=== PATIENT | female | born 1990 | race Caucasian/White ===

== ENCOUNTER 2016-10-26 10:55 | Emergency (ER) | payer OTHER ==
[2016-10-26 11:03] VITALS: TEMP 99.9; BMI 27.4
--- NOTE | 2016-10-26 11:28 | PDOC ---
History of Present Illness - General Chief Complaint: Pain, Acute Stated Complaint: LT SIDE PAIN Time Seen by Provider: 10/26/16 11:28 History Source: Patient Exam Limitations: No Limitations - History of Present Illness Initial Comments: 10/26/16 11:51 Chief complaint: Left flank pain radiates to mid lateral abdomen with nausea vomiting and fever History of present illness: Patient is a 25-year-old female with a history of kidney stones here today complaining of worsening left flank pain that radiates to left left mid lateral abdomen with nausea, vomiting, and fever and chills since 10/23/2016. Patient reports that pain is currently the left lateral mid abdominal area and is sharp and is currently a 10 out of 10 on relieved by taking. Patient is any dysuria, hematuria urgency or frequency. Patient reports last having kidney stones June 2016. Patient last year was admitted for pyelonephritis and kidney stones. 10/26/16 11:54 Timing/Duration: getting worse Severity: severe (left flank to left mid lateral abdominal pain ) Associated Symptoms: reports: fever/chills, nausea/vomiting, other (left flank pain radiates to left mid lateral abdomen) Past History - Past Medical History Allergies/Adverse Reactions: Allergies Allergy/AdvReac Type Severity Reaction Status Date / Time No Known Allergies Allergy Verified 10/26/16 11:03 Home Medications: Ambulatory Orders Ciprofloxacin [Cipro -] 500 mg PO Q12H #28 tablet 10/26/16 Ibuprofen 800 mg PO TID #15 tablet 10/26/16 Ondansetron [Zofran Odt -] 4 mg SL TID #8 od.tablet 10/26/16 Asthma: No Cancer: No Cardiac Disorders: No Diabetes: No HTN: No Kidney Stones: Yes Seizures: No Thyroid Disease: No - Immunization History Immunization Up to Date: Yes - Psycho/Social/Smoking Cessation Hx Anxiety: No Suicidal Ideation: No Smoking History: Never smoked Have you smoked in the past 12 months: No Hx Alcohol Use: No Drug/Substance Use Hx: No Substance Use Type: None Hx Substance Use Treatment: No Review of Systems - Review of Systems Able to Perform ROS?: Yes Constitutional: Yes: Fever, Loss of Appetite HEENTM: No: Symptoms Reported Respiratory: No: Symptoms reported Cardiac (ROS): No: Symptoms Reported ABD/GI: Yes: Nausea, Poor Appetite, Vomiting (intermittent since ), Other (left mid lateral abdominal ) : Yes: Flank Pain (left flank pain ). No: Burning, Dysuria, Discharge, Frequency, Hematuria, Incontinence, Urgency *Physical Exam - Vital Signs Last Vital Signs Temp Pulse Resp BP Pulse Ox 99.9 F H 120 H 24 138/95 98 10/26/16 11:01 10/26/16 11:01 10/26/16 11:01 10/26/16 11:01 10/26/16 11:01 - Physical Exam General Appearance: Yes: Appropriately Dressed Respiratory/Chest: positive: Lungs Clear, Normal Breath Sounds. negative: Chest Tender, Respiratory Distress Cardiovascular: positive: Regular Rhythm, Regular Rate, S1, S2 Gastrointestinal/Abdominal: positive: Normal Bowel Sounds, Tender (LEFT MID LATERAL ABDOMEN ), Soft. negative: Organomegaly, Distended, Guarding, Rebound, Tenderness, Hepatomegaly, Spleenomegaly Musculoskeletal: positive: Normal Inspection, CVA Tenderness (LEFT ), CVA Tenderness (L). negative: CVA Tenderness (R), Vertebral Tenderness Integumentary: positive: Normal Color Neurologic: positive: Alert, Responsive ED Treatment Course - LABORATORY CBC & Chemistry Diagram: 10/26/16 11:33 10/26/16 11:33 Medical Decision Making - Medical Decision Making Patient is a 25-year-old female with a history of kidney stones here today complaining of worsening left flank pain that radiates to left left mid lateral abdomen with nausea, vomiting, and fever and chills since 10/23/2016. Patient reports that pain is currently the left lateral mid abdominal area and is sharp and is currently a 10 out of 10 on relieved by taking. Patient is any dysuria, hematuria urgency or frequency. Patient reports last having kidney stones June 2016. Patient last year was admitted for pyelonephritis and kidney stones. R/O RECURRENT RENAL CALCULI R/O UTI R/O PYELONEPHRITIS PLAN: U/A URINE HCG NEGATIVE CMP CBC WITH DIFF RENAL US evidence of right renal hydronephrosis, mild left renal hydronephrosis minimally worse since last exam 05/07/2016 no gross renal calculi noted TORADOL 30 MG IV PUSH NOW REGLAN 10 MG IVPB NOW lactic acid BLOOD CULTURES 10/26/16 11:50 Laboratory Tests 10/26/16 11:20 Urine Color Yellow Urine Appearance Turbid Urine pH 5.0 Ur Specific [place] 1.023 Urine Protein 3+ H D Urine Glucose (UA) Negative Urine Ketones Negative Urine Blood 1+ H Urine Nitrite Positive Urine Bilirubin Negative Urine Urobilinogen Negative Ur Leukocyte Esterase 3+ H D Urine HCG, Qual Negative 10/26/16 11:54 10/26/16 11:54 10/26/16 11:57 Laboratory Tests 10/26/16 11:33 WBC 14.9 H RBC 4.18 D Hgb 12.1 D Hct 37.2 D MCV 88.9 MCHC 32.5 RDW 14.1 Plt Count 405 MPV 9.4 Neutrophils % 70.2 Lymphocytes % 19.5 D Monocytes % 9.6 Eosinophils % 0.3 Basophils % 0.4 10/26/16 12:28 10/26/16 12:29 Laboratory Tests 10/26/16 11:20 Urine RBC 61 Urine WBC 2581 Ur Epithelial Cells Moderate Urine Bacteria Hyaline Casts 17 Urine Mucus Many Urine HCG, Qual Negative 10/26/16 12:30 10/26/16 14:04 10/26/16 14:04 Laboratory Tests 10/26/16 11:33 Sodium 139 Potassium 4.1 Chloride 100 Carbon Dioxide 25 D Anion Gap 14 BUN 10 D Creatinine 0.7 D Creat Clearance w eGFR > 60 Random Glucose 92 D Calcium 9.3 Total Bilirubin 0.5 D AST 14 L ALT 30 D Alkaline Phosphatase 75 Total Protein 8.8 H D Albumin 3.6 D 10/26/16 14:25 10/26/16 14:26 Pt. signed out to Katie Arshad RN aware of need to transfer to main ED for further evalu *DC/Admit/Observation/Transfer Diagnosis at time of Disposition: UTI (urinary tract infection) Qualifiers: Urinary tract infection type: acute pyelonephritis Qualified Code(s): N10 - Acute pyelonephritis - Discharge Dispostion Disposition: HOME Condition at time of disposition: Improved - Prescriptions Prescriptions: Ciprofloxacin [Cipro -] 500 mg PO Q12H #28 tablet Ibuprofen 800 mg PO TID #15 tablet Ondansetron [Zofran Odt -] 4 mg SL TID #8 od.tablet - Referrals Referrals: Emma Berger MD [Primary Care Provider] - - Patient Instructions Printed Discharge Instructions: DI for Kidney Infection Additional Instructions: Discharge Instructions: -Take medications as prescribed -Drink at least 64oz of water daily -Follow up with your doctor within 1 week -REturn to the ER immediately with any worsening or concerning symptoms
[2016-10-26] MEDS ORDERED: SODIUM CHLORIDE 1,000 ML IV STA (11:32)
[2016-10-26] MEDS ORDERED: METOCLOPRAMIDE HCL INJECTION 10 MG/2 ML VIAL IVPB ONE (11:33)
[2016-10-26] MEDS ORDERED: KETOROLAC TROMETHAMINE 60 MG/2 ML VIAL IVPUSH ONE (11:34)
[2016-10-26 11:43] LABS: URINE APPEARANCE TURBID; URINE BILIRUBIN NEGATIVE (NEGATIVE); URINE COLOR YELLOW; URINE GLUCOSE (UA) NEGATIVE (NEGATIVE); URINE KETONE NEGATIVE (NEGATIVE); URINE NITRITE POSITIVE (NEGATIVE); URINE UROBILINOGEN NEGATIVE E.U./dl (0.2-1.0)
[2016-10-26 11:44] LABS: URINE BLOOD 1+ (NEGATIVE); URINE LEUK ESTERASE 3+ (NEGATIVE); URINE PROTEIN 3+ (NEGATIVE)
[2016-10-26 11:47] LABS: URINE MUCUS MANY; URINE RBC 61 /hpf (0-3); URINE WBC 2581 /hpf (3-5)
[2016-10-26 12:04] LABS: BASOPHIL 0.4 % (0-2.0); EOSINOPHIL 0.3 % (0-4.5); MCH 28.9 pg (25.7-33.7); MCHC 32.5 g/dl (32.0-36.0); MEAN CELL VOLUME 88.9 fl (80-96); MEAN PLT VOLUME 9.4 fl (7.5-11.1); NEUTROPHILS 70.2 % (42.8-82.8); PLATELET COUNT 405 K/MM3 (134-434); RDW 14.1 % (11.6-15.6); WHITE BLOOD COUNT 14.9 K/mm3 (4.0-10.0)
[2016-10-26 12:19] LABS: URINE HYALINE CAST 17 /lpf
[2016-10-26 12:28] LABS: ALBUMIN 3.6 g/dl (3.4-5.0); ANION GAP 14 (8-16); CALCIUM 9.3 mg/dL (8.5-10.1); CO2 25 mmol/L (21-32); CREATININE 0.7 mg/dL (0.55-1.02); GLUCOSE,RANDOM 92 mg/dL (74-106); SGOT/AST 14 U/L (15-37); SGPT/ALT 30 U/L (12-78)
[2016-10-26 12:30] LABS: ALK PHOS 75 U/L (45-117); BILIRUBIN,TOTAL 0.5 mg/dL (0.2-1.0); TOT PROT 8.8 g/dl (6.4-8.2)
[2016-10-26] MEDS ORDERED: CIPROFLOXACIN 250 MG TABLET (RESTRICTED TO ID) PO ONE (15:41)
--- NOTE | 2016-10-26 15:46 | PDOC ---
[id number]- Last Filed: 10/29/16 13:12> ED Treatment Course - LABORATORY CBC & Chemistry Diagram: 10/26/16 11:33 10/26/16 11:33 - ADDITIONAL ORDERS Additional order review: Laboratory Results 10/26/16 10/26/16 11:33 11:20 Sodium 139 Potassium 4.1 Chloride 100 Carbon Dioxide 25 D Anion Gap 14 BUN 10 D Creatinine 0.7 D Creat Clearance w eGFR > 60 Random Glucose 92 D Calcium 9.3 Total Bilirubin 0.5 D AST 14 L ALT 30 D Alkaline Phosphatase 75 Total Protein 8.8 H D Albumin 3.6 D Urine Color Yellow Urine Appearance Turbid Urine pH 5.0 Ur Specific [place] 1.023 Urine Protein 3+ H D Urine Glucose (UA) Negative Urine Ketones Negative Urine Blood 1+ H Urine Nitrite Positive Urine Bilirubin Negative Urine Urobilinogen Negative Ur Leukocyte Esterase 3+ H D Urine RBC 61 Urine WBC 2581 Ur Epithelial Cells Moderate Urine Bacteria Hyaline Casts 17 Urine Mucus Many Urine HCG, Qual Negative 10/26/16 11:33 RBC 4.18 D MCV 88.9 MCHC 32.5 RDW 14.1 MPV 9.4 Neutrophils % 70.2 Lymphocytes % 19.5 D Monocytes % 9.6 Eosinophils % 0.3 Basophils % 0.4 - Medications Given in the ED: ED Medications Discontinued Medications Generic Name Dose Route Start Last Admin Trade Name Jeanie PRN Reason Stop Dose Admin Sodium Chloride 1,000 mls @ 1,000 mls/hr 10/26/16 11:32 10/26/16 11:46 Normal Saline - IV 10/26/16 12:31 1,000 mls/hr ASDIR STA Administration Ketorolac Tromethamine 30 mg 10/26/16 11:34 10/26/16 11:46 Toradol Injection - IVPUSH 10/26/16 11:35 30 mg NOW ONE Administration Metoclopramide HCl 10 mg 10/26/16 11:33 10/26/16 11:46 Reglan Injection - IVPB 10/26/16 11:34 10 mg ONCE ONE Administration <Katie Wilkinson - Last Filed: 10/26/16 16:29> - LABORATORY CBC & Chemistry Diagram: 10/26/16 11:33 10/26/16 11:33 - ADDITIONAL ORDERS Additional order review: 10/26/16 14:30 Blood Culture - Preliminary Blood - Peripheral Venous NO GROWTH OBTAINED AFTER 48 HOURS, INCUBATION TO CONTINUE FOR 3 DAYS. 10/26/16 14:30 Blood Culture - Preliminary Blood - Peripheral Venous NO GROWTH OBTAINED AFTER 48 HOURS, INCUBATION TO CONTINUE FOR 3 DAYS. 10/26/16 11:20 Urine Culture - Final Urine - Urine Clean Catch Escherichia Coli 10/26/16 11:33 RBC 4.18 D MCV 88.9 MCHC 32.5 RDW 14.1 MPV 9.4 Neutrophils % 70.2 Lymphocytes % 19.5 D Monocytes % 9.6 Eosinophils % 0.3 Basophils % 0.4 - RADIOLOGY Radiology Studies Ordered: Category Date Time Status KIDNEY / RENAL US [US] Stat Ultrasound 10/26/16 11:53 Completed - Medications Given in the ED: ED Medications Discontinued Medications Generic Name Dose Route Start Last Admin Trade Name Freq PRN Reason Stop Dose Admin Ciprofloxacin 500 mg 10/26/16 15:41 10/26/16 16:40 Cipro (Restricted To Id) PO 10/26/16 15:42 500 mg ONCE ONE Administration Sodium Chloride 1,000 mls @ 1,000 mls/hr 10/26/16 11:32 10/26/16 11:46 Normal Saline - IV 10/26/16 12:31 1,000 mls/hr ASDIR STA Administration Ketorolac Tromethamine 30 mg 10/26/16 11:34 10/26/16 11:46 Toradol Injection - IVPUSH 10/26/16 11:35 30 mg NOW ONE Administration Metoclopramide HCl 10 mg 10/26/16 11:33 10/26/16 11:46 Reglan Injection - IVPB 10/26/16 11:34 10 mg ONCE ONE Administration <Arin Goddard - Last Filed: 10/29/16 13:12> Progress Note - Progress Note Progress Note: I have received report from TAYE Goddard regarding this patient. Pt's initial chief complaint: left flank pain Pt's work up completed prior to sign out: labs, UA, CT scan Pt treatment given from prior staff: IV fluids, IV toradol, IV reglan Pt plan to be completed: Will reassess, give PO abx Dispo: Most likely discharge. <Katie Wilkinson - Last Filed: 10/26/16 16:29> Medical Decision Making - Medical Decision Making A/P: 25 y/o female seen and worked up in [facility] for left flank pain with nausea, vomiting and subjective f/c sent over for further care. The CT scan shows mild hydronephrosis of left kidney without evidence of a stone. She has a positive UTI and clinical pyelonephritis. Plan is as follows: 1. PO Cipro 2. Repeat vital signs Patient's vital signs have improved - she is no longer febrile or tachycardic. She is able to tolerate PO medications and had first dose of Cipro in the ER. Will discharge to home with rx for zofran, ibuprofen and 2 week course of cipro. Pt instructed to take entire 2 weeks of Cipro, follow up with her doctor within 1 week, drink at least 64oz of water daily and return to the ER immediately with any worsening or concerning symptoms. The patient verbalizes understanding of all instructions, has no further questions and is awaiting discharge. <Katie Wilkinson - Last Filed: 10/26/16 16:29> *DC/Admit/Observation/Transfer <Katie Wilkinson - Last Filed: 10/26/16 16:29> <Arin Goddard - Last Filed: 10/29/16 13:12> Diagnosis at time of Disposition: UTI (urinary tract infection) Qualifiers: Urinary tract infection type: acute pyelonephritis Qualified Code(s): N10 - Acute pyelonephritis - Discharge Dispostion Disposition: HOME Condition at time of disposition: Improved - Prescriptions Prescriptions: Ciprofloxacin [Cipro -] 500 mg PO Q12H #28 tablet Ibuprofen 800 mg PO TID #15 tablet Ondansetron [Zofran Odt -] 4 mg SL TID #8 od.tablet - Referrals Referrals: Emma Berger MD [Primary Care Provider] - - Patient Instructions Printed Discharge Instructions: DI for Kidney Infection Additional Instructions: Discharge Instructions: -Take medications as prescribed -Drink at least 64oz of water daily -Follow up with your doctor within 1 week -REturn to the ER immediately with any worsening or concerning symptoms - Post Discharge Activity
[2016-10-26 16:12] VITALS: BP 117/70; PULSE 89
== END 2016-10-26 16:54 | disposition home or self-care (01) ==
LOC: JERFT 10:55 → JER 10:55
PROC: 3E0333Z Introduction of Anti-inflammatory into Peripheral Vein, Percutaneous Approach (ICD-10-PCS; principal; 2016-10-26)
PROC: 3E033GC Introduction of Other Therapeutic Substance into Peripheral Vein, Percutaneous Approach (ICD-10-PCS; 2016-10-26)
DX: N10 Acute pyelonephritis (principal); Z87.442 Personal history of urinary calculi
CPT/HCPCS: 36415; 76775-TC; 80053; 81003; 81015; 84703; 85025; 87040; 87086; 87186; 96374; 96375; 99284-25

== ENCOUNTER 2016-12-30 21:22 | Emergency (ER) | payer OTHER ==
[2016-12-30 21:28] VITALS: BP 115/68; PULSE 87; TEMP 99; BMI 26.6
--- NOTE | 2016-12-30 21:46 | PDOC ---
History of Present Illness - General History Source: Patient Exam Limitations: No Limitations <Roscoe Quintero - Last Filed: 12/31/16 00:15> - General History Source: Patient Exam Limitations: No Limitations - History of Present Illness Initial Comments: 12/30/16 22:05 The patient is a 26 year old female, with a significant past medical history of kidney stones, who presents to the emergency department s/p mechanical fall approximately 2 days ago. The patient reports she slipped and fell while walking to the bathroom 2 days ago. At the time of the fall she reports twisting her right ankle. Today, the patient reports increased pain and swelling at the right ankle. She reports she is able to ambulate, but with pain. She denies any calf tenderness, hip pain, or knee pain. She denies any recent travel. Allergies: NKDA Past Surgical History: None reported Social History: Non smoker. No ETOH or drug use. <Shalonda Thompson - Last Filed: 12/31/16 02:20> - General Chief Complaint: Injury Stated Complaint: INJURY Time Seen by Provider: 12/30/16 21:39 Past History - Past Medical History Asthma: No Cancer: No Cardiac Disorders: No Diabetes: No HTN: No Kidney Stones: Yes Seizures: No Thyroid Disease: No - Immunization History Immunization Up to Date: Yes - Psycho/Social/Smoking Cessation Hx Anxiety: No Suicidal Ideation: No Smoking History: Never smoked Have you smoked in the past 12 months: No Hx Alcohol Use: No Drug/Substance Use Hx: No Substance Use Type: None Hx Substance Use Treatment: No <Roscoe Quintero - Last Filed: 12/31/16 00:15> <Shalonda Thompson - Last Filed: 12/31/16 02:20> - Past Medical History Allergies/Adverse Reactions: Allergies Allergy/AdvReac Type Severity Reaction Status Date / Time No Known Allergies Allergy Verified 10/26/16 11:03 Home Medications: Ambulatory Orders Ibuprofen [Motrin -] 600 mg PO TID #30 tablet 12/30/16 Oxycodone HCl/Acetaminophen [Percocet 5-325 mg Tablet] 1 - 2 tab PO Q6H #20 tablet MDD 4 12/30/16 Review of Systems - Review of Systems Able to Perform ROS?: Yes Comments:: 12/30/16 22:06 CONSTITUTIONAL: Absent: fever, no chills, no fatigue EYES: Absent: visual changes ENT: Absent: ear pain, no sore throat CARDIOVASCULAR: Absent: chest pain, no palpitations RESPIRATORY: Absent: cough, no SOB GI: Absent: abdominal pain, no nausea, no vomiting, no constipation, no diarrhea GENITOURINARY: Absent: dysuria, no frequency, no hematuria MUSCULOSKELETAL: Present: +right ankle swelling s/p slip and fall Absent: back pain, no arthralgia, no myalgia SKIN: Absent: rash NEURO: Absent: headache <Shalonda Thompson - Last Filed: 12/31/16 02:20> *Physical Exam - Vital Signs Last Vital Signs Temp Pulse Resp BP Pulse Ox 99 F 87 18 115/68 99 12/30/16 21:26 12/30/16 21:26 12/30/16 21:26 12/30/16 21:26 12/30/16 21:26 <Roscoe Quintero - Last Filed: 12/31/16 00:15> - Vital Signs Last Vital Signs Temp Pulse Resp BP Pulse Ox 99 F 87 18 115/68 99 12/30/16 21:26 12/30/16 21:26 12/30/16 21:26 12/30/16 21:26 12/30/16 21:26 - Physical Exam Comments: 12/30/16 22:06 GENERAL: Well-appearing, well-nourished. No apparent distress. HEENT: Normocephalic, atraumatic. PERRL, EOM intact. CARDIOVASCULAR: Normal S1, S2. Regular rate and rhythm. PULMONARY: Clear to auscultation bilaterally. ABDOMEN: Soft, non-distended, non-tender. EXTREMITIES: Mild edema surrounding the right ankle and top of the right foot, with associated ecchymosis predominantly at the medial malleolus and dorsum of the foot. No gross deformities. SKIN: Warm, dry. No rash NEUROLOGICAL: No focal neurological deficits. <Shalonda Thompson - Last Filed: 12/31/16 02:20> ED Treatment Course - RADIOLOGY Radiology Studies Ordered: Category Date Time Status ANKLE & FOOT-RIGHT* [RAD] Stat Radiology 12/30/16 21:38 Ordered <Roscoe Quintero - Last Filed: 12/31/16 00:15> - RADIOLOGY Radiograph Interpretation: 12/31/16 02:19 EXAM: Foot/Ankle X-Ray INTERPRETED BY: Dr. Quintero IMPRESSION: Displaced bimalleolar fracture of right lower leg. - Medications Given in the ED: ED Medications Discontinued Medications Generic Name Dose Route Start Last Admin Trade Name Jeanie PRN Reason Stop Dose Admin Ibuprofen 600 mg 12/30/16 21:50 12/30/16 21:53 Motrin - PO 12/30/16 21:51 600 mg ONCE STA Administration <Shalonda Thompson - Last Filed: 12/31/16 02:20> Medical Decision Making - Medical Decision Making 12/30/16 21:45 Dr. Quintero: The scribe's documentation has been prepared under my direction and personally reviewed by me in its entirery. I confirm that the note above accurately reflects all work, treatment, procedures, and medical decision making performed by me. 12/30/16 23:17 Pt found to have fx of distal Tib and fib. No angulation to displacement. Pt to follow up with Ortho. Pending splint and discharge <Roscoe Quintero - Last Filed: 12/31/16 00:15> *DC/Admit/Observation/Transfer - Discharge Dispostion Admit: No <Roscoe Quintero - Last Filed: 12/31/16 00:15> - Attestations Scribe Attestion: 12/30/16 22:08 Documentation prepared by Shalonda Thompson, acting as medical lab technologist for Roscoe Quintero DO. <Shalonda Thompson - Last Filed: 12/31/16 02:20> Diagnosis at time of Disposition: Right ankle sprain Qualifiers: Encounter type: initial encounter Involved ligament of ankle: unspecified ligament Qualified Code(s): S93.401A - Sprain of unspecified ligament of right ankle, initial encounter Ankle fracture, bimalleolar, closed Qualifiers: Encounter type: initial encounter Laterality: right Qualified Code(s): S82.841A - Displaced bimalleolar fracture of right lower leg, initial encounter for closed fracture - Discharge Dispostion Disposition: HOME Condition at time of disposition: Stable - Prescriptions Prescriptions: Ibuprofen [Motrin -] 600 mg PO TID #30 tablet Oxycodone HCl/Acetaminophen [Percocet 5-325 mg Tablet] 1 - 2 tab PO Q6H #20 tablet MDD 4 - Referrals Referrals: Otto Jama MD [Staff Physician] - - Patient Instructions Printed Discharge Instructions: DI for Ankle Fracture Additional Instructions: reset, ice, elevate leg as much as possible. Take medication as directed. Follow up with Orthopedist referred to you in the next few days.
[2016-12-30] MEDS ORDERED: IBUPROFEN 600 MG TABLET (FP) PO STA (21:50)
[2016-12-30] MEDS ORDERED: IBUPROFEN 600 MG TABLET (FP) PO ONE (21:52)
[2016-12-31] MEDS ORDERED: OXYCODONE/APAP 5/325MG COMBO TABLET PO ONE (00:15)
[2016-12-31] MEDS ORDERED: OXYCODONE/APAP 5/325MG COMBO TABLET ONE (00:26)
== END 2016-12-31 00:31 | disposition home or self-care (01) ==
LOC: JER 21:22
PROC: 2W3LX1Z Immobilization of Right Lower Extremity using Splint (ICD-10-PCS; principal; 2016-12-30)
DX: S82.841A Displaced bimalleolar fracture of right lower leg, initial encounter for closed fracture (principal); W01.0XXA Fall on same level from slipping, tripping and stumbling without subsequent striking against object, initial encounter; Y93.01 Activity, walking, marching and hiking; Y92.031 Bathroom in apartment as the place of occurrence of the external cause
CPT/HCPCS: 73610-TC-RT; 73630-TC-RT; 99283-25

== ENCOUNTER 2017-03-03 22:23 | Emergency (ER) | payer OTHER ==
[2017-03-03 22:28] VITALS: BMI 26.9
[2017-03-03] MEDS ORDERED: KETOROLAC TROMETHAMINE 30 MG/1 ML VIAL IVPUSH ONE (22:47)
[2017-03-03] MEDS ORDERED: morphine CARPU-JECT 4 MG/1 ML DISP.SYRIN IVPUSH ONE (22:47)
[2017-03-03] MEDS ORDERED: SODIUM CHLORIDE 1,000 ML IV STA (22:47)
[2017-03-03] MEDS ORDERED: KETOROLAC TROMETHAMINE 30 MG/1 ML VIAL ONE (23:17)
[2017-03-03] MEDS ORDERED: morphine CARPU-JECT 4 MG/1 ML DISP.SYRIN ONE (23:17)
--- NOTE | 2017-03-03 23:25 | PDOC ---
History of Present Illness - General History Source: Patient Exam Limitations: No Limitations - History of Present Illness Initial Comments: 03/03/17 23:53 The patient is a 26 year old female with a significant past medical history of kidney stones who presents to the ED with complaints of cloudy urine and flank pain since yesterday. Patient reports her urine is cloudy and does not look like her normal urine at baseline. She states she developed sharp right sided flank pain and took tylenol with no relief. She also reports nausea and vomiting associated with present symptoms. Patient notes her symptoms feel similar to her history of kidney stones that are usually triggered by a UTI. Denies fevers or chills. Denies dysuria or frequency. Denies chest pain or shortness of breath. Denies abdominal pain or diarrhea. Denies any other symptoms. <Pool Cavanaugh - Last Filed: 03/03/17 23:53> - General History Source: Patient Exam Limitations: No Limitations <Kevyn Taylor - Last Filed: 03/04/17 02:25> - General Chief Complaint: Pain, Acute Stated Complaint: PAIN, ACUTE Time Seen by Provider: 03/03/17 22:39 Past History <Pool Cavanaugh - Last Filed: 03/03/17 23:53> - Past Medical History Asthma: No Cancer: No Cardiac Disorders: No Diabetes: No HTN: No Kidney Stones: Yes Seizures: No Thyroid Disease: No - Immunization History Immunization Up to Date: Yes - Psycho/Social/Smoking Cessation Hx Anxiety: No Suicidal Ideation: No Smoking History: Never smoked Have you smoked in the past 12 months: No Information on smoking cessation initiated: No Hx Alcohol Use: No Drug/Substance Use Hx: No Substance Use Type: None Hx Substance Use Treatment: No <Kevyn Taylor - Last Filed: 03/04/17 02:25> - Past Medical History Allergies/Adverse Reactions: Allergies Allergy/AdvReac Type Severity Reaction Status Date / Time No Known Allergies Allergy Verified 03/03/17 22:28 Home Medications: Ambulatory Orders Ibuprofen [Motrin -] 600 mg PO TID #30 tablet 12/30/16 Oxycodone HCl/Acetaminophen [Percocet 5-325 mg Tablet] 1 - 2 tab PO Q6H #20 tablet MDD 4 12/30/16 Ciprofloxacin [Cipro -] 500 mg PO Q12H #28 tablet 03/04/17 Naproxen [Naprosyn -] 500 mg PO BID PRN #20 tablet 03/04/17 Oxycodone HCl/Acetaminophen [Percocet 5-325 mg Tablet] 1 tab PO Q6H PRN #15 tablet MDD 4 03/04/17 Review of Systems - Review of Systems Able to Perform ROS?: Yes Comments:: 03/03/17 23:53 GENERAL/CONSTITUTIONAL: No fever or chills. No weakness. HEAD, EYES, EARS, NOSE AND THROAT: No change in vision. No ear pain or discharge. No sore throat. CARDIOVASCULAR: No chest pain or shortness of breath. RESPIRATORY: No cough, wheezing, or hemoptysis. GASTROINTESTINAL:+ nausea, vomiting No, diarrhea or constipation. GENITOURINARY: + flank pain, cloudy urine. No dysuria, frequency MUSCULOSKELETAL: No joint or muscle swelling or pain. No neck or back pain. SKIN: No rash NEUROLOGIC: No headache, vertigo, loss of consciousness, or change in strength/ sensation. ENDOCRINE: No increased thirst. No abnormal weight change. HEMATOLOGIC/LYMPHATIC: No anemia, easy bleeding, or history of blood clots. ALLERGIC/IMMUNOLOGIC: No hives or skin allergy. All Other Systems: Reviewed and Negative <Pool Cavanaugh - Last Filed: 03/03/17 23:53> *Physical Exam - Vital Signs Last Vital Signs Temp Pulse Resp BP Pulse Ox 99.1 F 91 H 18 117/69 99 03/03/17 22:25 03/03/17 22:25 03/03/17 22:25 03/03/17 22:25 03/03/17 22:25 - Physical Exam Comments: 03/03/17 23:53 GENERAL: Awake, alert, and fully oriented, in no acute distress HEAD: No signs of trauma EYES: PERRLA, EOMI, sclera anicteric, conjunctiva clear ENT: Auricles normal inspection, hearing grossly normal, nares patent, oropharynx clear without exudates. Moist mucosa NECK: Normal ROM, supple, no lymphadenopathy, JVD, or masses LUNGS: Breath sounds equal, clear to auscultation bilaterally. No wheezes, and no crackles HEART: Regular rate and rhythm, normal S1 and S2, no murmurs, rubs or gallops ABDOMEN: Soft, nontender, normoactive bowel sounds. No guarding, no rebound. No masses EXTREMITIES: Normal range of motion, no edema. No clubbing or cyanosis. No cords, erythema, or tenderness MUSCULOSKELETAL: + Right CVA tenderness NEUROLOGICAL: Normal speech SKIN: Warm, Dry, normal turgor, no rashes or lesions noted. <Pool Cavanaugh - Last Filed: 03/03/17 23:53> - Vital Signs Last Vital Signs Temp Pulse Resp BP Pulse Ox 99.1 F 91 H 18 117/69 99 03/03/17 22:25 03/03/17 22:25 03/03/17 22:25 03/03/17 22:25 03/03/17 22:25 <Kevyn Taylor - Last Filed: 03/04/17 02:25> ED Treatment Course - LABORATORY CBC & Chemistry Diagram: 03/03/17 23:00 03/03/17 23:00 - ADDITIONAL ORDERS Additional order review: Laboratory Results 03/03/17 23:30 Urine HCG, Qual Negative 03/03/17 23:00 RBC 3.86 MCV 88.7 MCHC 33.5 RDW 14.0 MPV 10.1 Neutrophils % 68.6 Lymphocytes % 23.9 D Monocytes % 6.9 Eosinophils % 0.1 Basophils % 0.5 <Pool Cavanaugh - Last Filed: 03/03/17 23:53> - LABORATORY CBC & Chemistry Diagram: 03/03/17 23:00 03/04/17 00:35 - RADIOLOGY Radiology Studies Ordered: Category Date Time Status SPIRAL- RENAL-STONE CT [CT] Stat CT Scan 03/03/17 22:47 Ordered <Kevyn Taylor - Last Filed: 03/04/17 02:25> Medical Decision Making - Medical Decision Making 03/03/17 23:25 A portion of this note was documented by scribe services under my direction. I have reviewed the details of the note, within reason, and agree with the documentation with the following case summary and management plan written by me. Patient treated in the ED. Nursing notes are reviewed and incorporated into the medical decision-making. Vital signs reviewed. Peripheral IV access obtained by the nurse, laboratory studies are drawn and sent, reviewed and interpreted by myself. Vital Signs Temp Pulse Resp BP Pulse Ox 99.1 F 91 H 18 117/69 99 03/03/17 22:25 03/03/17 22:25 03/03/17 22:25 03/03/17 22:25 03/03/17 22:25 26-year-old female patient with past medical history of renal colic presents with right flank pain and dysuria since yesterday. Patient noticed cloudiness of her urine as well as right flank pain reminiscent of her kidney stone. Denies fevers or chills. Reports nausea and vomiting. Clinically, patient likely has pyelonephritis. However, given history of kidney stones, we'll need to rule out obstructed infected kidney stone. Labs, urinalysis spiral CT and reassess. 03/04/17 02:15 CBC, BMP 03/03/17 23:00 03/04/17 00:35 CMP Sodium 141 mmol/L (136-145) 03/04/17 00:35 Potassium 3.2 mmol/L (3.5-5.1) L D 03/04/17 00:35 Chloride 105 mmol/L (98-107) 03/04/17 00:35 Carbon Dioxide 27 mmol/L (21-32) 03/04/17 00:35 Anion Gap 9 (8-16) 03/04/17 00:35 BUN 5 mg/dL (7-18) L D 03/04/17 00:35 Creatinine 0.5 mg/dL (0.55-1.02) L D 03/04/17 00:35 Creat Clearance w eGFR > 60 (>60) 03/04/17 00:35 Random Glucose 100 mg/dL (74-106) 03/04/17 00:35 Calcium 7.8 mg/dL (8.5-10.1) L 03/04/17 00:35 Total Bilirubin 0.4 mg/dL (0.2-1.0) 03/04/17 00:35 AST 15 U/L (15-37) 03/04/17 00:35 ALT 18 U/L (12-78) D 03/04/17 00:35 Alkaline Phosphatase 64 U/L (45-117) 03/04/17 00:35 Total Protein 7.0 g/dl (6.4-8.2) D 03/04/17 00:35 Albumin 3.2 g/dl (3.4-5.0) L 03/04/17 00:35 Urine Test Results Urine Color Yellow 03/03/17 23:00 Urine Appearance Slcloudy 03/03/17 23:00 Urine pH 6.0 (5.0-8.0) 03/03/17 23:00 Urine Protein 1+ (NEGATIVE) H D 03/03/17 23:00 Urine Glucose (UA) Negative (NEGATIVE) 03/03/17 23:00 Urine Ketones Negative (NEGATIVE) 03/03/17 23:00 Urine Blood 3+ (NEGATIVE) H 03/03/17 23:00 Urine Nitrite Negative (NEGATIVE) 03/03/17 23:00 Urine Bilirubin Negative (NEGATIVE) 03/03/17 23:00 Ur Leukocyte Esterase 1+ (NEGATIVE) H D 03/03/17 23:00 CT scan of the abdomen and pelvis reviewed. Kidney stones but no obstructions. Patient likely has pyelonephritis. Patient given Levaquin. We'll discharge her Cipro Floxin have the patient follow-up with urologist. I discussed the physical exam findings, ancillary test results and final diagnoses with the patient. I answered all of the patient's questions. The patient was satisfied with the care received and felt comfortable with the discharge plan and treatment plan. The patient will call their primary care physician within 24 hours to arrange follow-up and will return to the Emergency Department with any new, persistant or worsening symptoms. <Kevyn Taylor - Last Filed: 03/04/17 02:25> *DC/Admit/Observation/Transfer - Attestations Scribe Attestion: 03/03/17 23:53 Documentation prepared by Pool Cavanaugh, acting as biomedical specialist for Kevyn Taylor MD <Pool Cavanaugh - Last Filed: 03/03/17 23:53> - Discharge Dispostion Admit: No <Kevyn Taylor - Last Filed: 03/04/17 02:25> Diagnosis at time of Disposition: Pyelonephritis - Discharge Dispostion Disposition: HOME Condition at time of disposition: Improved - Prescriptions Prescriptions: Ciprofloxacin [Cipro -] 500 mg PO Q12H #28 tablet Naproxen [Naprosyn -] 500 mg PO BID PRN #20 tablet PRN Reason: Pain Oxycodone HCl/Acetaminophen [Percocet 5-325 mg Tablet] 1 tab PO Q6H PRN #15 tablet MDD 4 PRN Reason: Pain - Referrals Referrals: Devon Lemon MD [Staff Physician] - - Patient Instructions Printed Discharge Instructions: DI for Kidney Infection Additional Instructions: Take ciprofloxacin 500 mg every 12 hours for 14 days. Start tomorrow. Take 500 mg naproxen every 12 hours as needed for pain. Take a tablet of percocet every 6 to 8 hours as needed for severe pain. Follow up with an urologist. Call to schedule an appointment.
[2017-03-03 23:41] LABS: BASOPHIL 0.5 % (0-2.0); EOSINOPHIL 0.1 % (0-4.5); MCH 29.8 pg (25.7-33.7); MCHC 33.5 g/dl (32.0-36.0); MEAN CELL VOLUME 88.7 fl (80-96); MEAN PLT VOLUME 10.1 fl (7.5-11.1); NEUTROPHILS 68.6 % (42.8-82.8); PLATELET COUNT 340 K/MM3 (134-434); WHITE BLOOD COUNT 14.9 K/mm3 (4.0-10.0)
[2017-03-03 23:51] LABS: URINE APPEARANCE SLCLOUDY; URINE BILIRUBIN NEGATIVE (NEGATIVE); URINE BLOOD 3+ (NEGATIVE); URINE COLOR YELLOW; URINE GLUCOSE (UA) NEGATIVE (NEGATIVE); URINE KETONE NEGATIVE (NEGATIVE); URINE NITRITE NEGATIVE (NEGATIVE); URINE UROBILINOGEN NEGATIVE mg/dL (0.2-1.0)
[2017-03-04 00:23] LABS: URINE LEUK ESTERASE 1+ (NEGATIVE); URINE PROTEIN 1+ (NEGATIVE)
[2017-03-04] MEDS ORDERED: LEVOFLOXACIN 500 MG IVPB 100 ML IVPB ONE ×2 (01:05→01:16)
[2017-03-04 01:24] LABS: ALBUMIN 3.2 g/dl (3.4-5.0); ANION GAP 9 (8-16); BILIRUBIN,TOTAL 0.4 mg/dL (0.2-1.0); CALCIUM 7.8 mg/dL (8.5-10.1); CO2 27 mmol/L (21-32); CREATININE 0.5 mg/dL (0.55-1.02); GLUCOSE,RANDOM 100 mg/dL (74-106); SGOT/AST 15 U/L (15-37); SGPT/ALT 18 U/L (12-78)
[2017-03-04 01:25] LABS: ALK PHOS 64 U/L (45-117)
[2017-03-04 02:33] VITALS: BP 122/64; PULSE 89; TEMP 97.3
== END 2017-03-04 02:33 | disposition home or self-care (01) ==
LOC: JER 22:23
PROC: 3E03329 Introduction of Other Anti-infective into Peripheral Vein, Percutaneous Approach (ICD-10-PCS; principal; 2017-03-03)
PROC: 3E0337Z Introduction of Electrolytic and Water Balance Substance into Peripheral Vein, Percutaneous Approach (ICD-10-PCS; 2017-03-03)
PROC: 3E033NZ Introduction of Analgesics, Hypnotics, Sedatives into Peripheral Vein, Percutaneous Approach (ICD-10-PCS; 2017-03-03)
DX: N10 Acute pyelonephritis (principal); Z87.442 Personal history of urinary calculi
CPT/HCPCS: 36415; 74176; 80053; 81003; 81015; 84703; 85025; 87086; 99282-25

== ENCOUNTER 2017-03-09 07:58 | Emergency (ER) | payer OTHER ==
[2017-03-09 08:03] VITALS: BP 142/83; PULSE 63; TEMP 98.1; BMI 26.9
--- NOTE | 2017-03-09 09:06 | PDOC ---
History of Present Illness - General History Source: Patient Exam Limitations: No Limitations - History of Present Illness Initial Comments: 03/09/17 09:59 Patient is a 26 year old female with a significant past medical history of kidney stones who presents to the ED with left flank pain since last night with associated nausea and vomiting. Patient states that the pain is constant, nonradiating, with no alleviating or exacerbating factors. She denies that eating makes it worse. She was seen 03/03 for right sided flank pain with associated nausea and vomiting and was dx with pylo with a negative CT abdomen. Patient denies any fever or chills. She denies dysuria, hematuria, frequency or urgency. She denies any diarrhea, constipation or abdominal pain. She denies any recent falls or injuries, numbness/tingling/weakness. LMP - last week <Lucy Solis - Last Filed: 03/09/17 11:14> <Marvin Patel - Last Filed: 03/09/17 11:27> - General Chief Complaint: Pain Stated Complaint: RT SIDE PAIN Time Seen by Provider: 03/09/17 09:05 Past History <Lucy Solis - Last Filed: 03/09/17 11:14> - Past Medical History Asthma: No Cancer: No Cardiac Disorders: No Diabetes: No HTN: No Kidney Stones: Yes Seizures: No Thyroid Disease: No - Immunization History Immunization Up to Date: Yes - Psycho/Social/Smoking Cessation Hx Anxiety: No Suicidal Ideation: No Smoking History: Never smoked Have you smoked in the past 12 months: No Hx Alcohol Use: No Drug/Substance Use Hx: No Substance Use Type: None Hx Substance Use Treatment: No <Marvin Patel - Last Filed: 03/09/17 11:27> - Past Medical History Allergies/Adverse Reactions: Allergies Allergy/AdvReac Type Severity Reaction Status Date / Time No Known Allergies Allergy Verified 03/09/17 08:03 Home Medications: Ambulatory Orders Ciprofloxacin [Cipro -] 500 mg PO Q12H #28 tablet 03/04/17 Naproxen [Naprosyn -] 500 mg PO BID PRN #20 tablet 03/04/17 Ibuprofen [Motrin -] 400 mg PO QID PRN #28 tablet 03/09/17 Oxycodone HCl/Acetaminophen [Percocet 5-325 mg Tablet -] 1 combo PO Q6H PRN #6 tablet MDD 4 03/09/17 Review of Systems - Review of Systems Able to Perform ROS?: Yes Comments:: 03/09/17 09:59 CONSTITUTIONAL: No reported: Fever, Chills, Diaphoresis, Generalized Weakness, Malaise, Loss of Appetite HEENT: No reported: Rhinorrhea, Nasal Congestion, Throat Pain, Throat Swelling, Difficulty Swallowing, Mouth Swelling, Ear Pain, Eye Pain, Visual Changes CARDIOVASCULAR: No reported: Chest Pain, Syncope, Palpitations, Irregular Heart Rate, Lightheadedness, Peripheral Edema RESPIRATORY: No reported: Cough, Shortness of Breath, SOB with Exertion, Orthopnea, Wheezing , Stridor, Hemoptysis GASTROINTESTINAL: Reports: nausea, vomiting No reported: Abdominal pain, Abdominal Distension, Diarrhea, Constipation, Melena, Hematochezia GENITOURINARY: Reports: left flank pain No reported: Dysuria, Frequency, Urgency, Hesitancy, Genital Pain MUSCULOSKELETAL: No reported: Myalgia, Arthralgia, Joint Swelling, Back pain, Neck Pain SKIN: No reported: Rash, Itching, Pallor HEMEATOLOGIC/IMMUNOLOGIC: No reported: Easy Bleeding, Easy Bruising, Lymphadenopathy, Frequent infections ENDOCRINE: No reported: Unexplained Weight Gain, Unexplained Weight Loss, Heat Intolerance , Cold Intolerance NEUROLOGIC: No reported: Headache, Focal Weakness, Paresthesias, Vertigo, Lightheadedness, Unsteady Gait, Seizure, Mental Status Changes, Incontinence PSYCHIATRIC: No reported: Anxiety, Depression <Lucy Solis - Last Filed: 03/09/17 11:14> *Physical Exam - Vital Signs Last Vital Signs Temp Pulse Resp BP Pulse Ox 98.1 F 63 18 142/83 98 03/09/17 08:01 03/09/17 08:01 03/09/17 08:01 03/09/17 08:01 03/09/17 08:01 - Physical Exam Comments: 03/09/17 10:00 GENERAL: The patient is awake, alert, and fully oriented, Nontoxic - in no acute distress. HEAD: Normocephalic, atraumatic. EYES: extraocular movements intact, sclera anicteric, conjunctiva clear. ENT: Normal voice, Moist mucous membranes. NECK: Normal range of motion, supple LUNGS: Breath sounds equal, clear to auscultation bilaterally. No wheezes, no rhonchi, no rales. HEART: Regular rate and rhythm, without murmur, rub or gallop. ABDOMEN: Soft, nontender, normoactive bowel sounds. No guarding, no rebound.No CVA tenderness EXTREMITIES: Normal range of motion, no edema. No clubbing or cyanosis. No cords , erythema, or tenderness. MUSCULOSKELETAL: + mild L sided paraspinal tenderness w/o any midline tenderness NEUROLOGICAL: No facial asymmetry, Normal speech, PSYCH: Normal mood, normal affect. SKIN: Warm, Dry, normal turgor, <Lucy Solis - Last Filed: 03/09/17 11:14> - Vital Signs Last Vital Signs Temp Pulse Resp BP Pulse Ox 98.1 F 63 18 142/83 98 03/09/17 08:01 03/09/17 08:01 03/09/17 08:01 03/09/17 08:01 03/09/17 08:01 <Marvin Patel - Last Filed: 03/09/17 11:27> ED Treatment Course - LABORATORY CBC & Chemistry Diagram: 03/09/17 09:31 03/09/17 09:31 - ADDITIONAL ORDERS Additional order review: Laboratory Results 03/09/17 09:31 Urine Color Yellow Urine Appearance Slcloudy Urine pH 5.0 Urine Protein 1+ H Urine Glucose (UA) Negative Urine Ketones Negative Urine Blood 2+ H Urine Nitrite Negative Urine Bilirubin Negative Urine Urobilinogen Negative Ur Leukocyte Esterase 1+ H Urine HCG, Qual Negative 03/09/17 09:31 RBC 3.79 MCV 89.2 MCHC 32.1 RDW 14.0 MPV 8.7 D Neutrophils % 75.5 Lymphocytes % 17.4 D Monocytes % 5.8 Eosinophils % 0.5 D Basophils % 0.8 - Medications Given in the ED: ED Medications Discontinued Medications Generic Name Dose Route Start Last Admin Trade Name Ángelq PRN Reason Stop Dose Admin Ketorolac Tromethamine 30 mg 03/09/17 09:17 03/09/17 09:48 Toradol Injection - IVPUSH 03/09/17 09:18 30 mg ONCE ONE Administration Ondansetron HCl 4 mg 03/09/17 09:17 03/09/17 09:48 Zofran Injection IVPB 03/09/17 09:18 4 mg ONCE ONE Administration <Lucy Solis - Last Filed: 03/09/17 11:14> - LABORATORY CBC & Chemistry Diagram: 03/09/17 09:31 03/09/17 09:31 <Marvin Patel - Last Filed: 03/09/17 11:27> Medical Decision Making - Medical Decision Making 03/09/17 09:18 [id number] hx of kidney stones presents with L sided flank pain, pt was here last week with similar right sided pain, had a CT that did not show any obstructive kidney stones, dx ith pyelonephritis. She states that has resolved but started having a constant L sided back pain last night associated with nausea/wo vomiting, fever/chills, deysuria, hematuria, diarrhea. on exam she is no idstress, vitals normal, no CVA or abd tenderness, but +mild L parapsinal tendenderness suspect msk pain, consider kidney stones will ck labs, ua, renal US to r/o hydro will give toradol, zofran, fluids will reassess A portion of this note was documented by scribe services under my direction. I have reviewed the details of the note, within reason, and agree with the documentation with the following case summary and management plan written by me 03/09/17 11:20 pts blood work reviewed noted for mild leukocytosis pts UA noted for +2 blood and +1 LE US shows no hydronephoris pt feeling improved - differential for pain is still includes kidneys tones, however no hydro. will dc with NSADs, a couple of percocets supportive care at home will have pt fu with PMD and urology I discussed the physical exam findings, ancillary test results and final diagnoses with the patient. I answered all of the patient's questions. The patient was satisfied with the care received and felt comfortable with the discharge plan and treatment plan. The patient will call their primary care physician within 24 hours to arrange follow-up and will return to the Emergency Department with any new, persistent or worsening symptoms. <Marvin Patel - Last Filed: 03/09/17 11:27> *DC/Admit/Observation/Transfer - Attestations Scribe Attestion: 03/09/17 10:00 Documentation prepared by NAVDEEP Pedersen, acting as medical manager for Marvin Patel MD. <Lucy Solis - Last Filed: 03/09/17 11:14> - Discharge Dispostion Admit: No <Marvin Patel - Last Filed: 03/09/17 11:27> Diagnosis at time of Disposition: Flank pain - Discharge Dispostion Disposition: HOME Condition at time of disposition: Improved - Referrals Referrals: [facility] [Provider Group] Last Alva MD [Staff Physician] - - Patient Instructions Printed Discharge Instructions: DI for Flank Pain Additional Instructions: I suspect your pain is likely muscular, however there was some blood in your urine. Please follow up with your primary care doctor for further evaluation to ensure your urine clears. Return to the emergency department immediately with ANY new, persistent or worsening symptoms including worsening abdominal pain, fevers, inability to tolerate oral intake, chest pain, shortness of breath or any other concerns. Stay well hydrated. Use a heating pad on your back. You MUST call and follow up with your primary care doctor. Your emergency department visit is not complete without a followup with your doctor for reevaluation. Please make sure your doctor reviews the results of your emergency evaluation. Print Language: MAURITIAN
[2017-03-09] MEDS ORDERED: ONDANSETRON 4 MG/2 ML VIAL IVPB ONE (09:17)
[2017-03-09] MEDS ORDERED: KETOROLAC TROMETHAMINE 30 MG/1 ML VIAL IVPUSH ONE (09:17)
[2017-03-09] MEDS ORDERED: SODIUM CHLORIDE 1,000 ML IV ONE (09:17)
[2017-03-09 09:33] LABS: BASOPHIL 0.8 % (0-2.0); EOSINOPHIL 0.5 % (0-4.5); MCH 28.7 pg (25.7-33.7); MCHC 32.1 g/dl (32.0-36.0); MEAN CELL VOLUME 89.2 fl (80-96); MEAN PLT VOLUME 8.7 fl (7.5-11.1); NEUTROPHILS 75.5 % (42.8-82.8); PLATELET COUNT 432 K/MM3 (134-434); WHITE BLOOD COUNT 12.3 K/mm3 (4.0-10.0)
[2017-03-09] MEDS ORDERED: ONDANSETRON 4 MG/2 ML VIAL ONE (09:39)
[2017-03-09] MEDS ORDERED: KETOROLAC TROMETHAMINE 30 MG/1 ML VIAL ONE (09:39)
[2017-03-09 09:51] LABS: URINE APPEARANCE SLCLOUDY; URINE BILIRUBIN NEGATIVE (NEGATIVE); URINE BLOOD 2+ (NEGATIVE); URINE COLOR YELLOW; URINE GLUCOSE (UA) NEGATIVE (NEGATIVE); URINE KETONE NEGATIVE (NEGATIVE); URINE NITRITE NEGATIVE (NEGATIVE); URINE UROBILINOGEN NEGATIVE mg/dL (0.2-1.0)
[2017-03-09 09:52] LABS: URINE LEUK ESTERASE 1+ (NEGATIVE); URINE PROTEIN 1+ (NEGATIVE)
[2017-03-09 09:59] LABS: ALBUMIN 3.6 g/dl (3.4-5.0); ANION GAP 5 (8-16); BILIRUBIN,TOTAL 0.2 mg/dL (0.2-1.0); CO2 29 mmol/L (21-32); CREATININE 0.7 mg/dL (0.55-1.02); GLUCOSE,RANDOM 98 mg/dL (74-106); SGOT/AST 10 U/L (15-37); SGPT/ALT 15 U/L (12-78); TOT PROT 7.5 g/dl (6.4-8.2)
[2017-03-09 10:00] LABS: ALK PHOS 64 U/L (45-117)
== END 2017-03-09 11:46 | disposition home or self-care (01) ==
LOC: JER 07:58
PROC: 3E0333Z Introduction of Anti-inflammatory into Peripheral Vein, Percutaneous Approach (ICD-10-PCS; principal; 2017-03-09)
PROC: 3E033GC Introduction of Other Therapeutic Substance into Peripheral Vein, Percutaneous Approach (ICD-10-PCS; 2017-03-09)
DX: R10.32 Left lower quadrant pain (principal); R31.9 Hematuria, unspecified; Z87.442 Personal history of urinary calculi
CPT/HCPCS: 76775-TC; 80053; 81003; 81015; 83690; 84703; 96374; 96375; 99283-25

== ENCOUNTER 2017-06-11 16:15 | Emergency (ER) | payer OTHER ==
[2017-06-11 16:50] VITALS: BP 121/79; PULSE 66; TEMP 98.3; BMI 23.8
--- NOTE | 2017-06-11 19:50 | PDOC ---
History of Present Illness - General Chief Complaint: Vaginal Bleeding Stated Complaint: VAGINAL BLEEDING Time Seen by Provider: 06/11/17 19:44 History Source: Patient Exam Limitations: No Limitations - History of Present Illness Travel History: No Initial Comments: 06/11/17 19:46 26-year-old female with no medical history presents to the emergency department complaining of pelvic cramping with intermittent vaginal bleeding since yesterday but denies fever, chills, nausea/vomiting, neck pains, back pains, chest pain, shortness of breath, abdominal discomfort, flank pains, urinary symptoms: Frequency/urgency/hesitancy, hematuria. Patient states the bleeding started out scant and since this morning, went through 2 pads which was not soak through. Timing/Duration: reports: intermittent Past History - Past Medical History Allergies/Adverse Reactions: Allergies Allergy/AdvReac Type Severity Reaction Status Date / Time No Known Allergies Allergy Verified 06/11/17 16:46 Home Medications: Ambulatory Orders Ciprofloxacin [Cipro -] 500 mg PO Q12H #28 tablet 03/04/17 Naproxen [Naprosyn -] 500 mg PO BID PRN #20 tablet 03/04/17 Ibuprofen [Motrin -] 400 mg PO QID PRN #28 tablet 03/09/17 Oxycodone HCl/Acetaminophen [Percocet 5-325 mg Tablet -] 1 combo PO Q6H PRN #6 tablet MDD 4 03/09/17 Nitrofurantoin Monohyd/M-Cryst [Macrobid -] 100 mg PO BID #14 capsule 06/11/17 Asthma: No Cancer: No Cardiac Disorders: No CVA: No COPD: No Diabetes: No HTN: No Kidney Stones: Yes Seizures: No Thyroid Disease: No - Immunization History Immunization Up to Date: Yes - Suicide/Smoking/Psychosocial Hx Smoking History: Never smoked Have you smoked in the past 12 months: No Information on smoking cessation initiated: No Hx Alcohol Use: No Drug/Substance Use Hx: No Substance Use Type: None Hx Substance Use Treatment: No Review of Systems - Review of Systems Able to Perform ROS?: Yes Comments:: 06/11/17 19:48 CONSTITUTIONAL: Absent: fever, chills, diaphoresis, generalized weakness, malaise, loss of appetite CARDIOVASCULAR: Absent: chest pain, loss of consciousness, palpitations, irregular heart rate, peripheral edema RESPIRATORY: Absent: cough, shortness of breath, dyspnea with exertion, orthopnea, wheezing, stridor, hemoptysis GASTROINTESTINAL: +Pelvic pain Absent: abdominal pain, abdominal distension, nausea, vomiting, diarrhea, constipation, melena, hematochezia GENITOURINARY: Absent: dysuria, frequency, urgency, hesitancy, hematuria, flank pain, genital pain SKIN: Absent: rash, itching, pallor +vag bleed Is the patient limited Grenadian proficient: No *Physical Exam - Vital Signs Last Vital Signs Temp Pulse Resp BP Pulse Ox 98.3 F 66 16 121/79 99 06/11/17 16:46 06/11/17 16:46 06/11/17 16:46 06/11/17 16:46 06/11/17 16:46 - Physical Exam Comments: 06/11/17 19:48 GENERAL: Well developed, well nourished. Awake and alert. No acute distress. HEENT: Normocephalic, atraumatic. PERRLA, EOMI. No conjunctival pallor. Sclera are non- icteric. Moist mucous membranes. Oropharynx is clear. NECK: Supple. Full ROM. No JVD. Carotid pulses 2+ and symmetric, without bruits. No thyromegaly. No lymphadenopathy. CARDIOVASCULAR: Regular rate and rhythm. No murmurs, rubs, or gallops. Distal pulses are 2+ and symmetric. PULMONARY: No evidence of respiratory distress. Lungs clear to auscultation bilaterally. No wheezing, rales or rhonchi. ABDOMINAL: Soft. Non-tender. Non-distended. No rebound or guarding. No organomegaly. Normoactive bowel sounds. SKIN: Warm and dry. Normal capillary refill. No rashes. No jaundice. Pelvic: External genitalia normal without lesions. Vaginal vault is clear without blood or discharge. Cervix is long and closed. No cervical motion tenderness. Uterus is nontender and normal in size. Adnexa are nontender and without masses. Machine Stamper during pelvic exam: Jannet Ackerman ED Treatment Course - LABORATORY CBC & Chemistry Diagram: 06/11/17 19:10 06/11/17 19:10 - RADIOLOGY Radiograph Interpretation: 06/11/17 21:53 Ultrasound/transvaginal: preliminary: Normal pelvic ultrasound for a 26 yo premenopausal female. Benign follicular type cysts are noted in both ovaries. No fluid within the endometrial cavity or in the cul-de-sac. No evidence of intrauterine , *DC/Admit/Observation/Transfer Diagnosis at time of Disposition: Ectopic Qualifiers: Location of ectopic : unspecified location Intrauterine status: unspecified Qualified Code(s): O00.90 - Unspecified ectopic without intrauterine UTI (urinary tract infection) Qualifiers: Urinary tract infection type: acute cystitis Hematuria presence: without hematuria Qualified Code(s): N30.00 - Acute cystitis without hematuria - Discharge Dispostion Disposition: HOME Condition at time of disposition: Stable Admit: No - Prescriptions Prescriptions: Nitrofurantoin Monohyd/M-Cryst [Macrobid -] 100 mg PO BID #14 capsule - Referrals Referrals: Floyd Basilio MD [Staff Physician] - - Patient Instructions Printed Discharge Instructions: DI for Ectopic Additional Instructions: You had a Transvaginal ultrasound today in the ER. Your preliminary report shows : Normal pelvic ultrasound. Benign follicular type cysts are noted in both ovaries. No fluid within the endometrial cavity or in the cul-de-sac, No evidence of intrauterine . Your beta hCG today is 7.2 You need to follow-up with your supervisor public health nursing within 48 hours. A repeat beta hCG and transvaginal ultrasound needs to be repeated in 2 days. Return back to the emergency department for severe/persistent or worsening symptoms - Post Discharge Activity
[2017-06-11 19:54] LABS: URINE APPEARANCE SLCLOUDY; URINE BILIRUBIN NEGATIVE (NEGATIVE); URINE BLOOD 1+ (NEGATIVE); URINE COLOR LTYELLOW; URINE GLUCOSE (UA) NEGATIVE (NEGATIVE); URINE KETONE NEGATIVE (NEGATIVE); URINE NITRITE POSITIVE (NEGATIVE); URINE UROBILINOGEN NEGATIVE mg/dL (0.2-1.0)
[2017-06-11 20:01] LABS: BASOPHIL 0.8 % (0-2.0); EOSINOPHIL 0.6 % (0-4.5); MEAN CELL VOLUME 90.7 fl (80-96); MEAN PLT VOLUME 9.4 fl (7.5-11.1); NEUTROPHILS 68.2 % (42.8-82.8); PLATELET COUNT 345 K/MM3 (134-434); RDW 15.6 % (11.6-15.6); WHITE BLOOD COUNT 10.7 K/mm3 (4.0-10.0)
[2017-06-11 20:03] LABS: URINE PROTEIN 1+ (NEGATIVE)
[2017-06-11 20:05] LABS: URINE MUCUS RARE; URINE RBC 24 /hpf (0-3); URINE WBC 122 /hpf (3-5)
[2017-06-11] MEDS ORDERED: NITROFURANTOIN MACROCRYSTAL 50 MG CAPSULE (FP) PO SCH (20:30)
[2017-06-11 20:38] LABS: ALBUMIN 3.7 g/dl (3.4-5.0); ANION GAP 5 (8-16); BILIRUBIN,TOTAL 0.3 mg/dL (0.2-1.0); CALCIUM 8.6 mg/dL (8.5-10.1); CO2 27 mmol/L (21-32); CREATININE 0.6 mg/dL (0.55-1.02); GLUCOSE,RANDOM 87 mg/dL (74-106); SGOT/AST 6 U/L (15-37); SGPT/ALT 15 U/L (12-78)
[2017-06-11 20:40] LABS: ALK PHOS 67 U/L (45-117)
[2017-06-11] MEDS ORDERED: NITROFURANTOIN MACROCRYSTAL 50 MG CAPSULE (FP) ONE (21:11)
--- NOTE | 2017-06-11 21:48 | PDOC ---
*Physical Exam - Vital Signs Last Vital Signs Temp Pulse Resp BP Pulse Ox 98.3 F 66 16 121/79 99 06/11/17 16:46 06/11/17 16:46 06/11/17 16:46 06/11/17 16:46 06/11/17 16:46 ED Treatment Course - LABORATORY CBC & Chemistry Diagram: 06/11/17 19:10 06/11/17 19:10 - ADDITIONAL ORDERS Additional order review: Laboratory Results 06/11/17 06/11/17 19:10 19:10 Sodium 140 Potassium 4.4 Chloride 108 H Carbon Dioxide 27 Anion Gap 5 L BUN 12 D Creatinine 0.6 Creat Clearance w eGFR > 60 Random Glucose 87 Calcium 8.6 Total Bilirubin 0.3 D AST 6 L D ALT 15 Alkaline Phosphatase 67 Total Protein 8.0 Albumin 3.7 Beta HCG, Quant 7.2 Urine Color Ltyellow Urine Appearance Slcloudy Urine pH 6.0 Ur Specific [place] 1.020 Urine Protein 1+ H Urine Glucose (UA) Negative Urine Ketones Negative Urine Blood 1+ H Urine Nitrite Positive Urine Bilirubin Negative Urine Urobilinogen Negative Urine WBC (Auto) 122 Urine RBC (Auto) 24 Ur Epithelial Cells Rare Urine Mucus Rare 06/11/17 19:10 RBC 3.97 MCV 90.7 MCHC 33.0 RDW 15.6 D MPV 9.4 Neutrophils % 68.2 Lymphocytes % 25.7 D Monocytes % 4.7 Eosinophils % 0.6 Basophils % 0.8 Medical Decision Making - Medical Decision Making 06/11/17 21:47 Pt seen by the Advanced Practice Provider under my direct supervision Ancillary studies reviewed I agree with plan as outlined by the Advanced Practice Provider MARLENE Amaya *DC/Admit/Observation/Transfer - Prescriptions Prescriptions: Nitrofurantoin Monohyd/M-Cryst [Macrobid -] 100 mg PO BID #14 capsule - Referrals - Patient Instructions - Post Discharge Activity
[2017-06-11 22:04] LABS: URINE LEUK ESTERASE 1+ (NEGATIVE)
== END 2017-06-11 22:06 | disposition home or self-care (01) ==
LOC: JER 16:15
DX: O26.891 Other specified pregnancy related conditions, first trimester (principal); O00.90 Unspecified ectopic pregnancy without intrauterine pregnancy; O23.31 Infections of other parts of urinary tract in pregnancy, first trimester; O34.81 Maternal care for other abnormalities of pelvic organs, first trimester; N83.292 Other ovarian cyst, left side; N83.291 Other ovarian cyst, right side; Z3A.00 Weeks of gestation of pregnancy not specified
CPT/HCPCS: 36415; 76817-TC; 80053; 81003; 81015; 84702; 85025; 86850; 86900; 86901; 99282-25

== ENCOUNTER 2017-07-30 11:25 | Emergency (ER) | payer SELFPAY ==
[2017-07-30 11:31] VITALS: TEMP 98.4; BMI 23.6
[2017-07-30] MEDS ORDERED: SODIUM CHLORIDE 2,000 ML IV STA (12:17)
[2017-07-30] MEDS ORDERED: MAG HYDROX/AL HYDROX/SIMETH 30 ML UNIT-DOSE CUP PO ONE (12:17)
[2017-07-30] MEDS ORDERED: ONDANSETRON 4 MG/2 ML VIAL IVPB ONE (12:17)
[2017-07-30] MEDS ORDERED: FAMOTIDINE IV 20 MG/12 ML VIAL IVPUSH ONE (12:17)
[2017-07-30] MEDS ORDERED: ACETAMINOPHEN 325 MG TABLET (FP) PO ONE (12:17)
--- NOTE | 2017-07-30 12:33 | PDOC ---
History of Present Illness - General History Source: Patient Exam Limitations: No Limitations - History of Present Illness Initial Comments: 07/30/17 12:37 The patient is a 26 year old female, with a significant past medical history of nephrolithiasis, who presents to the emergency department with diffuse abdominal pain, nausea and vomiting for 3 days. The patient was reportedly at work when she began to feel overheated, stood up, became dizzy and nauseous, and vomited while at work. She reports 3-4 episodes of nonbloody emesis since the onset of her symptoms. She states standing up makes me nauseous. She reports constant, diffuse, achy abdominal pain, 6/10 in severity. She reportedly decreased oral intake since her symptoms started. She took tylenol at home with minimal relief. She also reports soft stool, but denies diarrhea. She denies chest pain, shortness of breath, headache. She denies fever, chills, , diarrhea and constipation. She denies dysuria, frequency, urgency and hematuria. Allergies: NKDA Social history: Sexualluy active, 4 children at home, <Cristy Skaggs - Last Filed: 07/30/17 12:37> - General History Source: Patient, Old Records Exam Limitations: No Limitations <Kevyn Taylor - Last Filed: 07/30/17 15:21> - General Chief Complaint: Pain Stated Complaint: STOMACH PAIN Time Seen by Provider: 07/30/17 11:52 Past History <Cristy Skaggs - Last Filed: 07/30/17 12:37> - Past Medical History Asthma: No Cancer: No Cardiac Disorders: No CVA: No COPD: No DVT: No Diabetes: No HTN: No Kidney Stones: Yes Seizures: No Thyroid Disease: No - Reproductive History Therapeutic (s) & number: Yes - Immunization History Immunization Up to Date: Yes - Suicide/Smoking/Psychosocial Hx Smoking History: Never smoked Have you smoked in the past 12 months: No Hx Alcohol Use: Yes (SOCIAL) Drug/Substance Use Hx: No Substance Use Type: None Hx Substance Use Treatment: No <Kevyn Taylor - Last Filed: 07/30/17 15:21> - Past Medical History Allergies/Adverse Reactions: Allergies Allergy/AdvReac Type Severity Reaction Status Date / Time No Known Allergies Allergy Verified 07/30/17 11:30 Home Medications: Ambulatory Orders Acetaminophen [Tylenol] 650 mg PO Q4H PRN #20 tablet 07/30/17 Cephalexin [Keflex] 500 mg PO DAILY #12 capsule 07/30/17 Famotidine [Pepcid] 20 mg PO BID PRN #20 tablet 07/30/17 Metoclopramide HCl [Reglan] 10 mg PO Q8H PRN #15 tablet 07/30/17 Vit Calc,Iron,Folic [ Vitamins] 1 each PO DAILY #30 tablet Review of Systems - Review of Systems Able to Perform ROS?: Yes Comments:: 07/30/17 12:38 GENERAL/CONSTITUTIONAL: No fever or chills. No weakness. HEAD, EYES, EARS, NOSE AND THROAT: No change in vision. No ear pain or discharge. No sore throat. CARDIOVASCULAR: No chest pain or shortness of breath. RESPIRATORY: No cough, wheezing, or hemoptysis. GASTROINTESTINAL: (+) nausea, vomiting, diffuse abdominal pain. No diarrhea or constipation. GENITOURINARY: No dysuria, frequency, or change in urination. MUSCULOSKELETAL: No joint or muscle swelling or pain. No neck or back pain. SKIN: No rash NEUROLOGIC: No headache, vertigo, loss of consciousness, or change in strength/ sensation. ENDOCRINE: No increased thirst. No abnormal weight change. HEMATOLOGIC/LYMPHATIC: No anemia, easy bleeding, or history of blood clots. ALLERGIC/IMMUNOLOGIC: No hives or skin allergy. <Cristy Skaggs - Last Filed: 07/30/17 12:37> *Physical Exam - Vital Signs Last Vital Signs Temp Pulse Resp BP Pulse Ox 98.4 F 70 20 126/69 100 07/30/17 11:28 07/30/17 11:28 07/30/17 11:28 07/30/17 11:28 07/30/17 11:28 - Physical Exam Comments: 07/30/17 12:38 GENERAL: Awake, alert, and fully oriented, in no acute distress HEAD: No signs of trauma EYES: PERRLA, EOMI, sclera anicteric, conjunctiva clear ENT: (+) dry mucous membranes. Auricles normal inspection, hearing grossly normal, nares patent, oropharynx clear without exudates. NECK: Normal ROM, supple, no lymphadenopathy, JVD, or masses LUNGS: Breath sounds equal, clear to auscultation bilaterally. No wheezes, and no crackles HEART: Regular rate and rhythm, normal S1 and S2, no murmurs, rubs or gallops ABDOMEN: Soft, nontender, normoactive bowel sounds. No guarding, no rebound. No masses EXTREMITIES: Normal range of motion, no edema. No clubbing or cyanosis. No cords, erythema, or tenderness NEUROLOGICAL: Cranial nerves II-XII intact. Normal speech, normal gait. Sensation intact in upper and lower extremities. 5/5 motor strength in upper and lower extremities. No pronator drift. Finger to nose intact. Rapid alternations intact. SKIN: Warm, Dry, normal turgor, no rashes or lesions noted. <Cristy Skaggs - Last Filed: 07/30/17 12:37> - Vital Signs Last Vital Signs Temp Pulse Resp BP Pulse Ox 98.4 F 70 20 126/69 100 07/30/17 11:28 07/30/17 11:28 07/30/17 11:28 07/30/17 11:28 07/30/17 11:28 <Kevyn Taylor - Last Filed: 07/30/17 15:21> ED Treatment Course - LABORATORY CBC & Chemistry Diagram: 07/30/17 12:25 07/30/17 12:25 - ADDITIONAL ORDERS Additional order review: Laboratory Results 07/30/17 12:25 Urine Color Yellow Urine Appearance Cloudy Urine pH 6.0 Ur Specific [place] 1.019 Urine Protein 1+ H Urine Glucose (UA) Negative Urine Ketones Negative Urine Blood 3+ H Urine Nitrite Positive Urine Bilirubin Negative Urine Urobilinogen Negative Ur Leukocyte Esterase 2+ H Urine HCG, Qual Positive <Cristy Skaggs - Last Filed: 07/30/17 12:37> - LABORATORY CBC & Chemistry Diagram: 07/30/17 12:25 07/30/17 12:25 <Kevyn Taylor - Last Filed: 07/30/17 15:21> Medical Decision Making - Medical Decision Making 07/30/17 12:25 A portion of this note was documented by scribe services under my direction. I have reviewed the details of the note, within reason, and agree with the documentation with the following case summary and management plan written by me. Patient treated in the ED. Nursing notes are reviewed and incorporated into the medical decision-making. Vital signs reviewed. Peripheral IV access obtained by the nurse, laboratory studies are drawn and sent, reviewed and interpreted by myself. Vital Signs Temp Pulse Resp BP Pulse Ox 98.4 F 70 20 126/69 100 07/30/17 11:28 07/30/17 11:28 07/30/17 11:28 07/30/17 11:28 07/30/17 11:28 46-year-old female with no past medical history presents with 3 days of generalizedabdominal cramping, nausea and vomiting. Has been reporting decreased appetite and feeling general malaise. Denies fevers or chills denies sick contacts or recent travels or bad foods. I suspect patient likely has gastroenteritis. We'll obtain blood work, give IV fluids and treat symptoms and reassess. 07/30/17 15:16 CBC, BMP 07/30/17 12:25 07/30/17 12:25 CMP Sodium 139 mmol/L (136-145) 07/30/17 12:25 Potassium 4.2 mmol/L (3.5-5.1) 07/30/17 12:25 Chloride 104 mmol/L (98-107) 07/30/17 12:25 Carbon Dioxide 28 mmol/L (21-32) 07/30/17 12:25 Anion Gap 7 (8-16) L 07/30/17 12:25 BUN 7 mg/dL (7-18) 07/30/17 12:25 Creatinine 0.4 mg/dL (0.55-1.02) L 07/30/17 12:25 Creat Clearance w eGFR > 60 (>60) 07/30/17 12:25 Random Glucose 84 mg/dL (74-106) 07/30/17 12:25 Calcium 8.6 mg/dL (8.5-10.1) 07/30/17 12:25 Phosphorus 3.7 mg/dL (2.5-4.9) 07/30/17 12:25 Magnesium 1.9 mg/dL (1.8-2.4) 07/30/17 12:25 Total Bilirubin 0.6 mg/dL (0.2-1.0) D 07/30/17 12:25 AST 14 U/L (15-37) L D 07/30/17 12:25 ALT 15 U/L (12-78) 07/30/17 12:25 Alkaline Phosphatase 61 U/L (45-117) 07/30/17 12:25 Total Protein 7.5 g/dl (6.4-8.2) 07/30/17 12:25 Albumin 3.6 g/dl (3.4-5.0) 07/30/17 12:25 Lipase 84 U/L (73-393) 07/30/17 12:25 Beta HCG, Quant 55308.6 mIU/ml 07/30/17 12:25 Urine Test Results Urine Color Yellow 07/30/17 12:25 Urine Appearance Cloudy 07/30/17 12:25 Urine pH 6.0 (5.0-8.0) 07/30/17 12:25 Ur Specific [place] 1.019 (1.001-1.035) 07/30/17 12:25 Urine Protein 1+ (NEGATIVE) H 07/30/17 12:25 Urine Glucose (UA) Negative (NEGATIVE) 07/30/17 12:25 Urine Ketones Negative (NEGATIVE) 07/30/17 12:25 Urine Blood 3+ (NEGATIVE) H 07/30/17 12:25 Urine Nitrite Positive (NEGATIVE) 07/30/17 12:25 Urine Bilirubin Negative (NEGATIVE) 07/30/17 12:25 Ur Leukocyte Esterase 2+ (NEGATIVE) H 07/30/17 12:25 Ur Epithelial Cells Rare /HPF (FEW) 07/30/17 12:25 Urine Bacteria Many /hpf (NONE SEEN) 07/30/17 12:25 Urine Mucus Many 07/30/17 12:25 Patient's symptoms have been progressively. However, it was noted that the patient had a positive urine test. At that time, beta hCG was obtained and the patient's beta hCG is 34,000. The patient did not have a period since her miscarriage in May 2017. She has been essentially active. Denies vaginal bleeding. 07/30/17 15:17 Ultrasound reviewed and demonstrates single live intrauterine gestation with pole crown-rump length corresponding to approximately 6 weeks and 3 days. There is an incompletely imaged echogenic septation versus debris sparely and the gestational sac is nonspecific. I had advised patient that she will require outpatient management with an registered nurse fetal and tactical debriefer officer including these findings on the ultrasound. Patient verbalized understanding agrees with plan. Return precautions were given including worsening symptoms or vaginal bleeding. I suspect the patient is likely having gastroenteritis as well. Supportive care and follow-up with her doctors. Patient is tolerating by mouth. I discussed the physical exam findings, ancillary test results and final diagnoses with the patient. I answered all of the patient's questions. The patient was satisfied with the care received and felt comfortable with the discharge plan and treatment plan. The patient will call their primary care physician within 24 hours to arrange follow-up and will return to the Emergency Department with any new, persistant or worsening symptoms. <Kevyn Taylor - Last Filed: 07/30/17 15:21> *DC/Admit/Observation/Transfer - Attestations Scribe Attestion: 07/30/17 12:39 Documentation prepared by Cristy Skaggs, acting as medical staff coordinator for Kevyn Taylor MD, <Cristy Skaggs - Last Filed: 07/30/17 12:37> - Discharge Dispostion Admit: No <Kevyn Taylor - Last Filed: 07/30/17 15:21> Diagnosis at time of Disposition: Gastroenteritis UTI in Qualifiers: Trimester: first trimester Qualified Code(s): O23.41 - Unspecified infection of urinary tract in , first trimester - Discharge Dispostion Disposition: HOME Condition at time of disposition: Improved - Prescriptions Prescriptions: Acetaminophen [Tylenol] 650 mg PO Q4H PRN #20 tablet PRN Reason: Pain/Fever Cephalexin [Keflex] 500 mg PO DAILY #12 capsule Famotidine [Pepcid] 20 mg PO BID PRN #20 tablet PRN Reason: Abdominal Pain Metoclopramide HCl [Reglan] 10 mg PO Q8H PRN #15 tablet PRN Reason: Nausea Vit Calc,Iron,Folic [ Vitamins] 1 each PO DAILY #30 tablet - Referrals Referrals: Floyd Basilio MD [Staff Physician] - Kaitlynn Horavth MD [Staff Physician] - - Patient Instructions Printed Discharge Instructions: DI for Urinary Tract Infection (UTI), DI for Viral Gastroenteritis -- Adult Additional Instructions: You have an urinary tract infection. Please drink plenty of fluids and rest. You have received one dose of IV antibiotics today (ceftriaxone) Please start your next dose of antibiotics (keflex) 500 mg every 12 hours ( starting tomorrow) Please take the other medications as prescribed. You have been given the results of your ultrasound. It is very important that you make an appointment with an OB doctor for follow up ultrasound and follow up.
[2017-07-30 12:35] LABS: URINE APPEARANCE CLOUDY; URINE BILIRUBIN NEGATIVE (NEGATIVE); URINE BLOOD 3+ (NEGATIVE); URINE COLOR YELLOW; URINE GLUCOSE (UA) NEGATIVE (NEGATIVE); URINE KETONE NEGATIVE (NEGATIVE); URINE NITRITE POSITIVE (NEGATIVE); URINE UROBILINOGEN NEGATIVE mg/dL (0.2-1.0)
[2017-07-30 12:36] LABS: HCG,QUALITATIVE URINE POSITIVE; URINE LEUK ESTERASE 2+ (NEGATIVE); URINE PROTEIN 1+ (NEGATIVE)
[2017-07-30 12:39] LABS: EPI CELLS RARE /HPF (FEW); URINE BACTERIA MANY /hpf (NONE SEEN); URINE MUCUS MANY
[2017-07-30] MEDS ORDERED: FAMOTIDINE 20 MG/50 ML IVPB 20 MG/50 ML MG IVPB ONE (12:39)
[2017-07-30] MEDS ORDERED: ACETAMINOPHEN 325 MG TABLET (FP) ONE (12:39)
[2017-07-30] MEDS ORDERED: MAG HYDROX/AL HYDROX/SIMETH 30 ML UNIT-DOSE CUP ONE (12:39)
[2017-07-30] MEDS ORDERED: ONDANSETRON 4 MG/2 ML VIAL ONE (12:39)
[2017-07-30 12:43] LABS: BASO % 0.5 % (0-2.0); EOS % 0.3 % (0-4.5); HEMATOCRIT 35.1 % (32.4-45.2); HEMOGLOBIN 11.6 GM/dL (10.7-15.3); LYMPH % 13.8 % (8-40); MCH 30.2 pg (25.7-33.7); MCHC 32.9 g/dl (32.0-36.0); MEAN CELL VOLUME 91.8 fl (80-96); MEAN PLT VOLUME 9.1 fl (7.5-11.1); MONO % 5.1 % (3.8-10.2); NEUT % 80.3 % (42.8-82.8); PLATELET COUNT 336 K/MM3 (134-434); RBC 3.82 M/mm3 (3.60-5.2); RDW 14.4 % (11.6-15.6); WHITE BLOOD COUNT 13.9 K/mm3 (4.0-10.0)
[2017-07-30 12:57] LABS: ALBUMIN 3.6 g/dl (3.4-5.0); ANION GAP 7 (8-16); BLOOD UREA NITROGEN 7 mg/dL (7-18); CALCIUM 8.6 mg/dL (8.5-10.1); CHLORIDE 104 mmol/L (98-107); CO2 28 mmol/L (21-32); GLUCOSE,RANDOM 84 mg/dL (74-106); LIPASE 84 U/L (73-393); SGPT/ALT 15 U/L (12-78); SODIUM 139 mmol/L (136-145)
[2017-07-30 12:59] LABS: ALK PHOS 61 U/L (45-117); BILIRUBIN,TOTAL 0.6 mg/dL (0.2-1.0); CREATININE 0.4 mg/dL (0.55-1.02); PHOSPHOROUS 3.7 mg/dL (2.5-4.9); TOT PROT 7.5 g/dl (6.4-8.2)
[2017-07-30 13:03] LABS: MAGNESIUM 1.9 mg/dL (1.8-2.4); POTASSIUM 4.2 mmol/L (3.5-5.1); SGOT/AST 14 U/L (15-37)
[2017-07-30] MEDS ORDERED: CEFTRIAXONE 1 GM in DEXTROSE 5%-WATER - 50 ML IVPB ONE (13:04)
[2017-07-30] MEDS ORDERED: CEFTRIAXONE 1 GM/50 ML BAG ONE (13:24)
[2017-07-30 15:41] VITALS: BP 105/50; PULSE 65
== END 2017-07-30 15:38 | disposition home or self-care (01) ==
LOC: JER 11:25
PROC: 3E03329 Introduction of Other Anti-infective into Peripheral Vein, Percutaneous Approach (ICD-10-PCS; principal; 2017-07-30)
PROC: 3E033GC Introduction of Other Therapeutic Substance into Peripheral Vein, Percutaneous Approach (ICD-10-PCS; 2017-07-30)
PROC: 3E033GC Introduction of Other Therapeutic Substance into Peripheral Vein, Percutaneous Approach (ICD-10-PCS; 2017-07-30)
DX: O99.611 Diseases of the digestive system complicating pregnancy, first trimester (principal); K52.9 Noninfective gastroenteritis and colitis, unspecified; O23.41 Unspecified infection of urinary tract in pregnancy, first trimester; Z3A.01 Less than 8 weeks gestation of pregnancy
CPT/HCPCS: 36415; 76801-TC; 80053; 81003; 81015; 83690; 83735; 84100; 84702; 84703; 85025; 87086; 87186; 99282-25

== ENCOUNTER 2017-08-22 22:51 | Inpatient (IN) | payer OTHER ==
[2017-08-22 23:28] VITALS: BMI 24.1
--- NOTE | 2017-08-22 23:59 | PDOC ---
History of Present Illness - General History Source: Patient Exam Limitations: No Limitations - History of Present Illness Initial Comments: 08/23/17 00:49 The patient is a 26 year old female who is 9 weeks with a significant PMH of kidney stones who presents to the emergency department with lower back pain and vomiting beginning approximately this morning. The patient notes she has been vomiting all day with associated subjective fever. She describes her back pain as localized in the left lower flank with radiation to the left abdominal quadrants. She reports her back pain feels similar to her previous kidney stones. The patient denies chest pain, shortness of breath, headache and dizziness. Denies chills, diarrhea and constipation. Denies dysuria, frequency, urgency and hematuria. Allergies: NKA Past surgical history: None reported. Social history: No reported cigarette, alcohol, or drug use. PCP: None reported. <Kevyn Jacobson - Last Filed: 08/23/17 01:18> <Lois Mark - Last Filed: 08/23/17 03:52> - General Chief Complaint: Pain, Acute Stated Complaint: PAIN Time Seen by Provider: 08/22/17 23:59 Past History <Kevyn Jacobson - Last Filed: 08/23/17 01:18> - Past Medical History Asthma: No Cancer: No Cardiac Disorders: No CVA: No COPD: No DVT: No Diabetes: No HTN: No Kidney Stones: Yes Seizures: No Thyroid Disease: No - Reproductive History Therapeutic (s) & number: Yes - Immunization History Immunization Up to Date: Yes - Suicide/Smoking/Psychosocial Hx Smoking History: Unknown if ever smoked Have you smoked in the past 12 months: No Hx Alcohol Use: Yes (SOCIAL) Drug/Substance Use Hx: No Substance Use Type: None Hx Substance Use Treatment: No <Lois Mark - Last Filed: 08/23/17 03:52> - Past Medical History Allergies/Adverse Reactions: Allergies Allergy/AdvReac Type Severity Reaction Status Date / Time No Known Allergies Allergy Verified 07/30/17 11:30 Home Medications: Ambulatory Orders Famotidine [Pepcid] 20 mg PO BID PRN #20 tablet 07/30/17 Metoclopramide HCl [Reglan] 10 mg PO Q8H PRN #15 tablet 07/30/17 Vit Calc,Iron,Folic [ Vitamins] 1 each PO DAILY #30 tablet Review of Systems - Review of Systems Able to Perform ROS?: Yes Comments:: 08/23/17 00:49 GENERAL/CONSTITUTIONAL: (+) Subjective fever. No fever or chills. No weakness. HEAD, EYES, EARS, NOSE AND THROAT: No change in vision. No ear pain or discharge. No sore throat. CARDIOVASCULAR: No chest pain or shortness of breath. RESPIRATORY: No cough, wheezing, or hemoptysis. GASTROINTESTINAL: (+) Vomiting. No diarrhea or constipation. GENITOURINARY: No dysuria, frequency, or change in urination. MUSCULOSKELETAL: (+) Left flank pain. No joint or muscle swelling or pain. No neck or back pain. SKIN: No rash NEUROLOGIC: No headache, vertigo, loss of consciousness, or change in strength/ sensation. ENDOCRINE: No increased thirst. No abnormal weight change. HEMATOLOGIC/LYMPHATIC: No anemia, easy bleeding, or history of blood clots. ALLERGIC/IMMUNOLOGIC: No hives or skin allergy. <Kevyn Jacobson - Last Filed: 08/23/17 01:18> *Physical Exam - Vital Signs Last Vital Signs Temp Pulse Resp BP Pulse Ox 99.5 F 104 H 20 142/74 99 08/22/17 23:25 08/22/17 23:25 08/22/17 23:25 08/22/17 23:25 08/22/17 23:25 - Physical Exam Comments: 08/23/17 01:18 GENERAL/CONSTITUTIONAL: (+) Subjective fever. No fever or chills. No weakness. HEAD, EYES, EARS, NOSE AND THROAT: No change in vision. No ear pain or discharge. No sore throat. CARDIOVASCULAR: No chest pain or shortness of breath. RESPIRATORY: No cough, wheezing, or hemoptysis. GASTROINTESTINAL: (+) Vomiting. No diarrhea or constipation. GENITOURINARY: No dysuria, frequency, or change in urination. MUSCULOSKELETAL: (+) Left flank pain. No joint or muscle swelling or pain. No neck or back pain. SKIN: No rash NEUROLOGIC: No headache, vertigo, loss of consciousness, or change in strength/ sensation. ENDOCRINE: No increased thirst. No abnormal weight change. HEMATOLOGIC/LYMPHATIC: No anemia, easy bleeding, or history of blood clots. ALLERGIC/IMMUNOLOGIC: No hives or skin allergy. <Kevyn Jacobson - Last Filed: 08/23/17 01:18> - Vital Signs Last Vital Signs Temp Pulse Resp BP Pulse Ox 99.5 F 104 H 20 142/74 99 08/22/17 23:25 08/22/17 23:25 08/22/17 23:25 08/22/17 23:25 08/22/17 23:25 <Lois Mark - Last Filed: 08/23/17 03:52> ED Treatment Course - LABORATORY CBC & Chemistry Diagram: 08/23/17 00:27 08/23/17 00:27 - ADDITIONAL ORDERS Additional order review: 08/23/17 00:27 RBC 3.72 MCV 93.2 MCHC 32.9 RDW 14.1 MPV 9.4 Neutrophils % 88.5 H Lymphocytes % 5.5 L D Monocytes % 5.6 Eosinophils % 0.2 Basophils % 0.2 - Medications Given in the ED: ED Medications Discontinued Medications Generic Name Dose Route Start Last Admin Trade Name Jeanie PRN Reason Stop Dose Admin Morphine Sulfate 4 mg 08/23/17 00:24 08/23/17 00:40 Morphine Injection - IVPUSH 08/23/17 00:25 4 mg ONCE ONE Administration Ondansetron HCl 4 mg 08/23/17 00:24 08/23/17 00:40 Zofran Injection IVPUSH 08/23/17 00:25 4 mg ONCE ONE Administration Sodium Chloride 1,000 ml 08/23/17 00:24 08/23/17 00:40 Normal Saline - IV 08/23/17 00:25 1,000 ml ONCE ONE Administration <Kevyn Jacobson - Last Filed: 08/23/17 01:18> - LABORATORY CBC & Chemistry Diagram: 08/23/17 00:27 08/23/17 00:27 <Lois Mark - Last Filed: 08/23/17 03:52> Medical Decision Making - Medical Decision Making 08/23/17 03:47 Pt presents to the ED with flank pain, nausea and vomiting. + L CVA tenderness. Patient is . LAbs are cosnistent with UTI. US shows mild hydronephrosis. Infected stone vs pyelonephritis. Will treat with IV ceftriaxone and admit for observation and continued IV antibiotics. <Lois Mark - Last Filed: 08/23/17 03:52> *DC/Admit/Observation/Transfer - Attestations Scribe Attestion: 08/23/17 00:49 Documentation prepared by Kevyn Jacobson, acting as medical billing manager for Lois Mark MD. <Kevyn Jacobson - Last Filed: 08/23/17 01:18> - Discharge Dispostion Admit: Yes <Lois Mark - Last Filed: 08/23/17 03:52> Diagnosis at time of Disposition: Acute pyelonephritis - Discharge Dispostion Condition at time of disposition: Good
[2017-08-23] MEDS ORDERED: SODIUM CHLORIDE 0.9% 1000 ML INFUS.BAG IV ONE (00:24)
[2017-08-23] MEDS ORDERED: morphine CARPU-JECT 4 MG/1 ML DISP.SYRIN IVPUSH ONE ×2 (00:24→03:15)
[2017-08-23] MEDS ORDERED: ONDANSETRON 4 MG/2 ML VIAL IVPUSH ONE (00:24)
[2017-08-23] MEDS ORDERED: MORPHINE SULFATE 10 MG/1 ML *VIAL ONE (00:30)
[2017-08-23] MEDS ORDERED: ONDANSETRON 4 MG/2 ML VIAL ONE (00:30)
[2017-08-23 00:41] LABS: BASO % 0.2 % (0-2.0); EOS % 0.2 % (0-4.5); HEMATOCRIT 34.6 % (32.4-45.2); HEMOGLOBIN 11.4 GM/dL (10.7-15.3); LYMPH % 5.5 % (8-40); MCH 30.6 pg (25.7-33.7); MCHC 32.9 g/dl (32.0-36.0); MEAN CELL VOLUME 93.2 fl (80-96); MEAN PLT VOLUME 9.4 fl (7.5-11.1); MONO % 5.6 % (3.8-10.2); NEUT % 88.5 % (42.8-82.8); PLATELET COUNT 297 K/MM3 (134-434); RBC 3.72 M/mm3 (3.60-5.2); RDW 14.1 % (11.6-15.6); WHITE BLOOD COUNT 19.8 K/mm3 (4.0-10.0)
[2017-08-23 01:07] LABS: ALBUMIN 3.4 g/dl (3.4-5.0); ANION GAP 12 (8-16); BILIRUBIN,TOTAL 0.8 mg/dL (0.2-1.0); BLOOD UREA NITROGEN 8 mg/dL (7-18); CALCIUM 8.8 mg/dL (8.5-10.1); CHLORIDE 104 mmol/L (98-107); CO2 22 mmol/L (21-32); CREATININE 0.5 mg/dL (0.55-1.02); GLUCOSE,RANDOM 100 mg/dL (74-106); POTASSIUM 3.6 mmol/L (3.5-5.1); SGOT/AST 12 U/L (15-37); SGPT/ALT 15 U/L (12-78); SODIUM 138 mmol/L (136-145); TOT PROT 7.3 g/dl (6.4-8.2)
[2017-08-23 01:23] LABS: ALK PHOS 56 U/L (45-117)
[2017-08-23 01:32] LABS: URINE APPEARANCE SLCLOUDY; URINE BILIRUBIN NEGATIVE (NEGATIVE); URINE BLOOD 2+ (NEGATIVE); URINE COLOR LTYELLOW; URINE GLUCOSE (UA) NEGATIVE (NEGATIVE); URINE KETONE NEGATIVE (NEGATIVE); URINE NITRITE POSITIVE (NEGATIVE); URINE UROBILINOGEN NEGATIVE mg/dL (0.2-1.0)
[2017-08-23 01:46] LABS: URINE LEUK ESTERASE 3+ (NEGATIVE); URINE PROTEIN 1+ (NEGATIVE)
[2017-08-23 02:00] LABS: EPI CELLS RARE /HPF (FEW); URINE BACTERIA MODERATE /hpf (NONE SEEN); URINE HYALINE CAST 3 /lpf; URINE MUCUS FEW
[2017-08-23] MEDS ORDERED: CEFTRIAXONE 1,000 MG in DEXTROSE 5%-WATER - 50 ML IVPB ONE (03:06)
[2017-08-23] MEDS ORDERED: CEFTRIAXONE 1 GM/50 ML BAG ONE (03:10)
--- NOTE | 2017-08-23 03:51 | HP ---
CHIEF COMPLAINT: PCP: HISTORY OF PRESENT ILLNESS: ER course was notable for: (1) (2) (3) Recent Travel: PAST MEDICAL HISTORY: PAST SURGICAL HISTORY: Social History: Smoking: Alcohol: Drugs: Family History: Allergies No Known Allergies Allergy (Verified 07/30/17 11:30) HOME MEDICATIONS: Home Medications Medication Instructions Recorded Famotidine [Pepcid] 20 mg PO BID PRN #20 tablet 07/30/17 Metoclopramide HCl [Reglan] 10 mg PO Q8H PRN #15 tablet 07/30/17 Vit Calc,Iron,Folic 1 each PO DAILY #30 tablet 07/30/17 [ Vitamins] REVIEW OF SYSTEMS CONSTITUTIONAL: Absent: fever, chills, diaphoresis, generalized weakness, malaise, loss of appetite, weight change HEENT: Absent: rhinorrhea, nasal congestion, throat pain, throat swelling, difficulty swallowing, mouth swelling, ear pain, eye pain, visual changes CARDIOVASCULAR: Absent: chest pain, syncope, palpitations, irregular heart rate, lightheadedness , peripheral edema RESPIRATORY: Absent: cough, shortness of breath, dyspnea with exertion, orthopnea, wheezing, stridor, hemoptysis GASTROINTESTINAL: Absent: abdominal pain, abdominal distension, nausea, vomiting, diarrhea, constipation, melena, hematochezia GENITOURINARY: Absent: dysuria, frequency, urgency, hesitancy, hematuria, flank pain, genital pain MUSCULOSKELETAL: Absent: myalgia, arthralgia, joint swelling, back pain, neck pain SKIN: Absent: rash, itching, pallor HEMATOLOGIC/IMMUNOLOGIC: Absent: easy bleeding, easy bruising, lymphadenopathy, frequent infections ENDOCRINE: Absent: unexplained weight gain, unexplained weight loss, heat intolerance, cold intolerance NEUROLOGIC: Absent: headache, focal weakness or paresthesias, dizziness, unsteady gait, seizure, mental status changes, bladder or bowel incontinence PSYCHIATRIC: Absent: anxiety, depression, suicidal or homicidal ideation, hallucinations. PHYSICAL EXAMINATION Vital Signs - 24 hr 08/22/17 08/23/17 23:25 03:43 Temperature 99.5 F 98.6 F Pulse Rate 104 H Respiratory 20 Rate Blood Pressure 142/74 O2 Sat by Pulse 99 Oximetry (%) GENERAL: Awake, alert, and fully oriented, in no acute distress. HEAD: Normal with no signs of trauma. EYES: Pupils equal, round and reactive to light, extraocular movements intact, sclera anicteric, conjunctiva clear. No lid lag. EARS, NOSE, THROAT: Ears normal, nares patent, oropharynx clear without exudates. Moist mucous membranes. NECK: Normal range of motion, supple without lymphadenopathy, JVD, or masses. LUNGS: Breath sounds equal, clear to auscultation bilaterally. No wheezes, and no crackles. No accessory muscle use. HEART: Regular rate and rhythm, normal S1 and S2 without murmur, rub or gallop. ABDOMEN: Soft, nontender, not distended, normoactive bowel sounds, no guarding, no rebound, no masses. No hepatomegaly or splenomegaly. MUSCULOSKELETAL: Normal range of motion at all joints. No bony deformities or tenderness. No CVA tenderness. UPPER EXTREMITIES: 2+ pulses, warm, well-perfused. No cyanosis. No clubbing. No peripheral edema. LOWER EXTREMITIES: 2+ pulses, warm, well-perfused. No calf tenderness. No peripheral edema. NEUROLOGICAL: Cranial nerves II-XII intact. Normal speech. Normal gait. PSYCHIATRIC: Cooperative. Good eye contact. Appropriate mood and affect. SKIN: Warm, dry, normal turgor, no rashes or lesions noted, normal capillary refill. Laboratory Results - last 24 hr 08/23/17 08/23/17 08/23/17 00:27 00:27 01:21 WBC 19.8 H D RBC 3.72 Hgb 11.4 Hct 34.6 MCV 93.2 MCH 30.6 MCHC 32.9 RDW 14.1 Plt Count 297 MPV 9.4 Neutrophils % 88.5 H Lymphocytes % 5.5 L D Monocytes % 5.6 Eosinophils % 0.2 Basophils % 0.2 Sodium 138 Potassium 3.6 Chloride 104 Carbon Dioxide 22 Anion Gap 12 BUN 8 Creatinine 0.5 L Creat Clearance w eGFR > 60 Random Glucose 100 Calcium 8.8 Total Bilirubin 0.8 D AST 12 L ALT 15 Alkaline Phosphatase 56 Total Protein 7.3 Albumin 3.4 Beta HCG, Quant 20363.1 Urine Color Ltyellow Urine Appearance Slcloudy Urine pH 5.0 Ur Specific [place] 1.017 Urine Protein 1+ H Urine Glucose (UA) Negative Urine Ketones Negative Urine Blood 2+ H Urine Nitrite Positive Urine Bilirubin Negative Urine Urobilinogen Negative Ur Leukocyte Esterase 3+ H Urine WBC (Auto) 212 Urine RBC (Auto) 14 Ur Epithelial Cells Rare Urine Bacteria Moderate Hyaline Casts 3 Urine Mucus Few ASSESSMENT/PLAN:
--- NOTE | 2017-08-23 03:51 | PN ---
Teaching Attending Note Name of Resident: Kyle Mishar ATTENDING PHYSICIAN STATEMENT I saw and evaluated the patient. I reviewed the resident's note and discussed the case with the resident. I agree with the resident's findings and plan as documented. SUBJECTIVE: 26 F w pmhx. of nephrolithiasis is 9 weeks presents with vomiting and low back pain. States her vomiting has subsided and she feels hungry. Denies any chest pain, pressure or shortness of breath. OBJECTIVE: Physical: VS: Vital Signs Period Temp Pulse Resp BP Sys/Dukes Pulse Ox Last 24 Hr 98.6 F-99.5 F 78-104 18-20 118-142/71-74 98-99 GEN: NAD, Resting in bed, AA0X3 HEENT: NCAT, PERRL, throat without erythema or exudates CARD: RRR S1, S2 RESP:CTAB ADB: BSx4, NTD to palpation EXT: - C/C/E CBCD WBC 19.8 K/mm3 (4.0-10.0) H D 08/23/17 00:27 RBC 3.72 M/mm3 (3.60-5.2) 08/23/17 00:27 Hgb 11.4 GM/dL (10.7-15.3) 08/23/17 00:27 Hct 34.6 % (32.4-45.2) 08/23/17 00:27 MCV 93.2 fl (80-96) 08/23/17 00:27 MCHC 32.9 g/dl (32.0-36.0) 08/23/17 00:27 RDW 14.1 % (11.6-15.6) 08/23/17 00:27 Plt Count 297 K/MM3 (134-434) 08/23/17 00:27 MPV 9.4 fl (7.5-11.1) 08/23/17 00:27 CMP Sodium 138 mmol/L (136-145) 08/23/17 00:27 Potassium 3.6 mmol/L (3.5-5.1) 08/23/17 00:27 Chloride 104 mmol/L (98-107) 08/23/17 00:27 Carbon Dioxide 22 mmol/L (21-32) 08/23/17 00:27 Anion Gap 12 (8-16) 08/23/17 00:27 BUN 8 mg/dL (7-18) 08/23/17 00:27 Creatinine 0.5 mg/dL (0.55-1.02) L 08/23/17 00:27 Creat Clearance w eGFR > 60 (>60) 08/23/17 00:27 Random Glucose 100 mg/dL (74-106) 08/23/17 00:27 Calcium 8.8 mg/dL (8.5-10.1) 08/23/17 00:27 Total Bilirubin 0.8 mg/dL (0.2-1.0) D 08/23/17 00:27 AST 12 U/L (15-37) L 08/23/17 00:27 ALT 15 U/L (12-78) 08/23/17 00:27 Alkaline Phosphatase 56 U/L (45-117) 08/23/17 00:27 Total Protein 7.3 g/dl (6.4-8.2) 08/23/17 00:27 Albumin 3.4 g/dl (3.4-5.0) 08/23/17 00:27 Us- Mild hydro- Awaiting report ASSESSMENT AND PLAN: 26 F who is 9 weeks presents with flank pain found to have a UTI 1) Pyelonephritis - Ucx - C/W Ceftriaxone - IVF 2.) Dvt Ppx - SCDs Place in Obs
[2017-08-23] MEDS ORDERED: SODIUM CHLORIDE 1,000 ML IV SCH (04:00)
--- NOTE | 2017-08-23 04:15 | HP ---
CHIEF COMPLAINT: pain L flank and vomiting HISTORY OF PRESENT ILLNESS: 26 year old female who is 9 weeks with a significant PMH of kidney stones who came to the emergency department with L flank pain and vomiting since morning. Patient states that pain is 10/.10 in intensity, radiates to groin, decreased with pain meds in hospital, tried OTC tylenol didn't work. Also report vomiting stated in morning, multiple times, contain food particles, no blood. Also reports increase in frequency of micturation but denies burning. Denies fever, chills. The patient denies chest pain, shortness of breath, headache and dizziness. Denies chills, diarrhea and constipation. Denies dysuria, urgency and hematuria. ER course; Ceftriaxone IV 1g,. IV fluid 2 L, UA + Allergies: NKA Past surgical history: None reported. Social history: No reported cigarette, alcohol, or drug use. PCP: None reported. Family History: none Allergies No Known Allergies Allergy (Verified 07/30/17 11:30) HOME MEDICATIONS: Home Medications Medication Instructions Recorded Famotidine [Pepcid] 20 mg PO BID PRN #20 tablet 07/30/17 Metoclopramide HCl [Reglan] 10 mg PO Q8H PRN #15 tablet 07/30/17 Vit Calc,Iron,Folic 1 each PO DAILY #30 tablet 07/30/17 [ Vitamins] REVIEW OF SYSTEMS CONSTITUTIONAL: Absent: fever, chills, diaphoresis, generalized weakness, HEENT: Absent: rhinorrhea, nasal congestion, throat pain, throat swelling, CARDIOVASCULAR: Absent: chest pain, syncope, palpitations, irregular heart rate, lightheadedness , peripheral edema RESPIRATORY: Absent: cough, shortness of breath, dyspnea with exertion, orthopnea, wheezing, stridor, hemoptysis GASTROINTESTINAL: as above GENITOURINARY: as above SKIN: Absent: rash, itching, pallor PSYCHIATRIC: Absent: anxiety, depression, suicidal or homicidal ideation, hallucinations. PHYSICAL EXAMINATION Vital Signs - 24 hr 08/22/17 08/23/17 08/23/17 23:25 03:43 03:53 Temperature 99.5 F 98.6 F Pulse Rate 104 H Pulse Rate [ 78 Right Brachial] Respiratory 20 18 Rate Blood Pressure 142/74 Blood Pressure 118/71 [Right Arm] O2 Sat by Pulse 99 98 Oximetry (%) GENERAL: Awake, alert, and fully oriented, in no acute distress. HEAD: Normal with no signs of trauma. EYES: Pupils equal, round and reactive to light, EARS, NOSE, THROAT: dry mucous membranes. NECK: Normal range of motion, supple without lymphadenopathy, JVD, or masses. LUNGS: Breath sounds equal, clear to auscultation bilaterally. No wheezes, and no crackles. No accessory muscle use. HEART: Regular rate and rhythm, normal S1 and S2 without murmur, rub or gallop. ABDOMEN: Soft, mild tender in left flank area , , not distended, normoactive bowel sounds, no guarding, no rebound, no masses. Renal marissa tenderness present MUSCULOSKELETAL: Normal range of motion at all joints. No bony deformities or tenderness. No CVA tenderness. UPPER EXTREMITIES: 2+ pulses, warm, well-perfused. No cyanosis. No clubbing. No peripheral edema. LOWER EXTREMITIES: No calf tenderness. No peripheral edema. NEUROLOGICAL: Normal speech. Normal gait. PSYCHIATRIC: Cooperative. Good eye contact. SKIN: Warm, dry, Laboratory Results - last 24 hr 08/23/17 08/23/17 08/23/17 00:27 00:27 01:21 WBC 19.8 H D RBC 3.72 Hgb 11.4 Hct 34.6 MCV 93.2 MCH 30.6 MCHC 32.9 RDW 14.1 Plt Count 297 MPV 9.4 Neutrophils % 88.5 H Lymphocytes % 5.5 L D Monocytes % 5.6 Eosinophils % 0.2 Basophils % 0.2 Sodium 138 Potassium 3.6 Chloride 104 Carbon Dioxide 22 Anion Gap 12 BUN 8 Creatinine 0.5 L Creat Clearance w eGFR > 60 Random Glucose 100 Calcium 8.8 Total Bilirubin 0.8 D AST 12 L ALT 15 Alkaline Phosphatase 56 Total Protein 7.3 Albumin 3.4 Beta HCG, Quant 66723.1 Urine Color Ltyellow Urine Appearance Slcloudy Urine pH 5.0 Ur Specific [place] 1.017 Urine Protein 1+ H Urine Glucose (UA) Negative Urine Ketones Negative Urine Blood 2+ H Urine Nitrite Positive Urine Bilirubin Negative Urine Urobilinogen Negative Ur Leukocyte Esterase 3+ H Urine WBC (Auto) 212 Urine RBC (Auto) 14 Ur Epithelial Cells Rare Urine Bacteria Moderate Hyaline Casts 3 Urine Mucus Few ASSESSMENT/PLAN: 26 year old female who is 9 weeks with a significant PMH of kidney stones who came to the emergency department with L flank pain and vomiting since morning found to have uti. 1) Pyelonephritis - urine culture pending - C/W Ceftriaxone - IVF - zofran prn for vomiting - 2.) Dvt Ppx - SCDs fluid: NS 83 ml/hr electrolyte: repeat in am nutrition: regular diet from am Place in Obs Visit type - Emergency Visit Emergency Visit: Yes Care time: The patient presented to the Emergency Department on the above date and was hospitalized for further evaluation of their emergent condition. - New Patient This patient is new to me today: Yes Date on this admission: 08/23/17 - Critical Care Critical Care patient: No
[2017-08-23 08:39] LABS: BASO % 0.1 % (0-2.0); HEMATOCRIT 32.5 % (32.4-45.2); HEMOGLOBIN 10.6 GM/dL (10.7-15.3); LYMPH % 5.8 % (8-40); MCH 30.2 pg (25.7-33.7); MCHC 32.6 g/dl (32.0-36.0); MEAN CELL VOLUME 92.8 fl (80-96); MEAN PLT VOLUME 9.3 fl (7.5-11.1); MONO % 5.4 % (3.8-10.2); NEUT % 88.7 % (42.8-82.8); PLATELET COUNT 302 K/MM3 (134-434); RBC 3.51 M/mm3 (3.60-5.2); WHITE BLOOD COUNT 18.3 K/mm3 (4.0-10.0)
[2017-08-23 09:25] LABS: ANION GAP 9 (8-16); BLOOD UREA NITROGEN 4 mg/dL (7-18); CALCIUM 8.3 mg/dL (8.5-10.1); CHLORIDE 105 mmol/L (98-107); CO2 23 mmol/L (21-32); CREATININE 0.4 mg/dL (0.55-1.02); GLUCOSE,RANDOM 84 mg/dL (74-106); MAGNESIUM 1.7 mg/dL (1.8-2.4); PHOSPHOROUS 3.4 mg/dL (2.5-4.9); POTASSIUM 3.6 mmol/L (3.5-5.1); SGOT/AST 11 U/L (15-37); SGPT/ALT 13 U/L (12-78); SODIUM 137 mmol/L (136-145)
[2017-08-23] MEDS: PRENATAL VITAMINS W/ FOLIC ACID TABLET (FP) PO SCH (09:26)
[2017-08-23] MEDS: CEFTRIAXONE 1 GM in DEXTROSE 5%-WATER - 50 ML IVPB SCH (09:26)
[2017-08-23 09:27] LABS: ALK PHOS 54 U/L (45-117); BILIRUBIN,TOTAL 0.7 mg/dL (0.2-1.0); TOT PROT 6.7 g/dl (6.4-8.2)
[2017-08-23] MEDS: ONDANSETRON 4 MG/2 ML VIAL IVPUSH PRN ×2 (10:52→19:01)
[2017-08-23] MEDS ORDERED: KETOROLAC TROMETHAMINE 30 MG/1 ML VIAL IVPUSH ONE ×2 (11:03→19:30)
--- NOTE | 2017-08-23 12:08 | CONS ---
DATE OF CONSULTATION: 08/23/2017 HISTORY: The patient is a 26-year-old female 8, para 4, 0-3-4 currently 9 weeks admitted with complaint of abdominal and flank pain. PAST MEDICAL HISTORY: Significant for 4 vaginal deliveries with no complications. She has had 3 induced abortions. The patient is complaining of flank pain, nausea, and vomiting. Today the pain is better, and she has not had any nausea or vomiting. PHYSICAL EXAMINATION: Vital Signs: Her temperature is 99.1 this morning, blood pressure 105/53, her pulse is 81. General: She does not appear to be toxic. Abdomen: Soft. Mild bilateral flank tenderness. No rebound, no guarding, no rigidity. Bowel sounds are present. Pelvic: Deferred. LABORATORY DATA: Her white count showed white count 18,000 with a shift, hemoglobin 10.6, hematocrit 32.5, BUN 4, creatinine 0.4, normal. Her urine showed 2+ blood and 3+ leukocyte esterase with 212 WBCs. Urine culture is pending. IMPRESSION: 1. 9 weeks. 2. Pyelonephritis. 3. History of renal stone, rule out obstruction. PLAN: Advised to have bilateral renal ultrasound. Continue IV antibiotic pending UA and culture. The patient stating that she is not going to keep this . The patient can be [facility] for termination of if she wishes. We will follow up. WADE RODRIGUEZ M.D. [id number]
--- NOTE | 2017-08-23 14:23 | PN ---
Physical Exam: SUBJECTIVE: Patient seen and examined. Offers no new complaints. Says she feels better today with pain decreasing to 6/10 from 10/10. She states the last time she experienced the same symptoms she was also . Patient denies dysuria , nausea, vomiting, chills, chest pain, dizziness, and sob. OBJECTIVE: Vital Signs Period Temp Pulse Resp BP Sys/Dukes Pulse Ox Last 24 Hr 98.6 F-99.5 F 78-104 18-20 105-142/53-74 98-99 GENERAL: The patient is awake, alert, and fully oriented, in no acute distress. HEAD: Normal with no signs of trauma. EYES: PERRL, extraocular movements intact, sclera anicteric, conjunctiva clear. No ptosis. ENT: oropharynx clear without exudates, moist mucous membranes. NECK: Trachea midline, full range of motion, supple. LUNGS: Breath sounds equal, clear to auscultation bilaterally, no wheezes, no crackles, no accessory muscle use. HEART: Regular rate and rhythm, S1, S2 without murmur, rub or gallop. ABDOMEN: non-tender, nondistended, normoactive bowel sounds, no guarding, no rebound, + L CVA tenderness EXTREMITIES: 2+ pulses, warm, well-perfused, no edema. NEUROLOGICAL: Cranial nerves II through XII grossly intact. Normal speech, gait not observed. PSYCH: Normal mood, normal affect. SKIN: Warm, dry, normal turgor, no rashes or lesions noted Laboratory Results - last 24 hr 08/23/17 08/23/17 08/23/17 00:27 00:27 01:21 WBC 19.8 H D RBC 3.72 Hgb 11.4 Hct 34.6 MCV 93.2 MCH 30.6 MCHC 32.9 RDW 14.1 Plt Count 297 MPV 9.4 Neutrophils % 88.5 H Lymphocytes % 5.5 L D Monocytes % 5.6 Eosinophils % 0.2 Basophils % 0.2 Sodium 138 Potassium 3.6 Chloride 104 Carbon Dioxide 22 Anion Gap 12 BUN 8 Creatinine 0.5 L Creat Clearance w eGFR > 60 Random Glucose 100 Calcium 8.8 Phosphorus Magnesium Total Bilirubin 0.8 D AST 12 L ALT 15 Alkaline Phosphatase 56 Total Protein 7.3 Albumin 3.4 Beta HCG, Quant 25407.1 Urine Color Ltyellow Urine Appearance Slcloudy Urine pH 5.0 Ur Specific [place] 1.017 Urine Protein 1+ H Urine Glucose (UA) Negative Urine Ketones Negative Urine Blood 2+ H Urine Nitrite Positive Urine Bilirubin Negative Urine Urobilinogen Negative Ur Leukocyte Esterase 3+ H Urine WBC (Auto) 212 Urine RBC (Auto) 14 Ur Epithelial Cells Rare Urine Bacteria Moderate Hyaline Casts 3 Urine Mucus Few 08/23/17 08/23/17 08:00 08:00 WBC 18.3 H RBC 3.51 L Hgb 10.6 L Hct 32.5 MCV 92.8 MCH 30.2 MCHC 32.6 RDW 14.0 Plt Count 302 MPV 9.3 Neutrophils % 88.7 H Lymphocytes % 5.8 L Monocytes % 5.4 Eosinophils % 0.0 D Basophils % 0.1 Sodium 137 Potassium 3.6 Chloride 105 Carbon Dioxide 23 Anion Gap 9 BUN 4 L Creatinine 0.4 L Creat Clearance w eGFR > 60 Random Glucose 84 Calcium 8.3 L Phosphorus 3.4 Magnesium 1.7 L Total Bilirubin 0.7 AST 11 L ALT 13 Alkaline Phosphatase 54 Total Protein 6.7 Albumin 3.0 L Beta HCG, Quant Urine Color Urine Appearance Urine pH Ur Specific [place] Urine Protein Urine Glucose (UA) Urine Ketones Urine Blood Urine Nitrite Urine Bilirubin Urine Urobilinogen Ur Leukocyte Esterase Urine WBC (Auto) Urine RBC (Auto) Ur Epithelial Cells Urine Bacteria Hyaline Casts Urine Mucus Active Medications Generic Name Dose Route Start Last Admin Trade Name Freq PRN Reason Stop Dose Admin Sodium Chloride 1,000 mls @ 83 mls/hr 08/23/17 04:00 08/23/17 04:16 Normal Saline - IV 83 mls/hr ASDIR AMEYA Administration Ceftriaxone Sodium 1 gm/ 50 mls @ 100 mls/hr 08/23/17 10:00 08/23/17 09:26 Dextrose IVPB 100 mls/hr DAILY AMEYA Administration Ondansetron HCl 4 mg 08/23/17 04:14 08/23/17 10:52 Zofran Injection IVPUSH 4 mg Q6H PRN Administration NAUSEA AND/OR VOMITING Multivit/Folic Acid/Iron 1 tab 08/23/17 10:00 08/23/17 09:26 Vitamins (Sjr) - PO 1 tab DAILY AMEYA Administration ASSESSMENT/PLAN: 26 year old female who is 9 weeks with a significant PMH of kidney stones who came to the emergency department with L flank pain and vomiting since morning found to have UTI and pyelonephritis. #Sepsis due to Pyelonephritis -U/A positive for UTI -WBC 18.3 (19.8 on admission) -Cont. IV Abx: Ceftriaxone (Day 1) -Pending U/A, urine cultures -IV fluids NS @ 83 ml/hour -Zofran PRN -Abd U/S: mild to moderate B/L left-sided hydronephrosis -No CT because of . -Patient stated to OBGYN that she does not plan on keeping the baby. [facility]. #Left Hydronephrosis -history of recurrent rephrolithiasis -Abd U/S: mild to moderate B/L left-sided hydronephrosis -FU Pelvic/bladder U/S to rule out obstruction -Cont. IV fluids @ 100 ml/hour -Tylenol PRN for pain control #FEN -IV fluids NS @100ml/hour -WNL -Regular #DVT PPx -SCDs Patient does not have desire to continue at this time. Has appointment scheduled for an . Visit type - Emergency Visit Emergency Visit: Yes ED Registration Date: 08/23/17 Care time: The patient presented to the Emergency Department on the above date and was hospitalized for further evaluation of their emergent condition. - New Patient This patient is new to me today: Yes Date on this admission: 08/23/17 - Critical Care Critical Care patient: No
--- NOTE | 2017-08-23 17:28 | PN ---
Teaching Attending Note Name of Resident: Erik Vega ATTENDING PHYSICIAN STATEMENT I saw and evaluated the patient. I reviewed the resident's note and discussed the case with the resident. I agree with the resident's findings and plan as documented. SUBJECTIVE:continues to feel nauseated but able to eat a few crackers. has some L flank pain. does admit to some urinary frequency for the past 2 weeks but contributed it to being . pt staets overall feels much improved since yesterday. very adamant needs to leave tomorrow as she is scheduled for on which she scheduled over a week ago. denies CP, SOB, fever , chills, V/C/D, vaginal discharge, hematuria OBJECTIVE: Last Vital Signs Temp Pulse Resp BP Pulse Ox 98.5 F 79 18 117/65 98 08/23/17 14:00 08/23/17 14:00 08/23/17 14:00 08/23/17 14:00 08/23/17 03:53 General NAD CV S1 S2 RRR no murmur/rub/gallop Lungs CTA B/L no wheezing/rales/rhonchi Abdomen +suprapubic and L flank tenderness +L CVA tenderness ASSESSMENT AND PLAN: 26yo F wtih PMH nephrolithasis presented to the ER with vomiting and low back pain and found to be septic due to pyelonephritis 1. Sepsis due to pyelnephritis- AFebrile. remains nauseated. on Ceftriaxone day 1. will f/u Ucx 2. L hydronephrosis-in setting of hx of nephrolithasis. concern may be more distal obstruction. will obtain pelvic/bladder u/s to r/o obstruction. cont IVF for now. consider urology consult pending result of imaging. pain controlled with tyelnol 3. +gestation- 9 weeks. does not have desire to continue at this time. has already scheduled appt for termination on 08/24. 4. DVT ppx- EAM
[2017-08-23] MEDS: ACETAMINOPHEN 325 MG TABLET (FP) PO PRN (19:00)
[2017-08-24] MEDS: SODIUM CHLORIDE 1,000 ML IV SCH (01:45)
[2017-08-24] MEDS: ACETAMINOPHEN 325 MG TABLET (FP) PO PRN ×2 (02:12→14:42)
[2017-08-24 08:46] LABS: HEMATOCRIT 29.1 % (32.4-45.2); HEMOGLOBIN 9.7 GM/dL (10.7-15.3); MCH 30.7 pg (25.7-33.7); MCHC 33.2 g/dl (32.0-36.0); MEAN CELL VOLUME 92.4 fl (80-96); MEAN PLT VOLUME 9.3 fl (7.5-11.1); PLATELET COUNT 268 K/MM3 (134-434); RBC 3.15 M/mm3 (3.60-5.2); RDW 13.9 % (11.6-15.6); WHITE BLOOD COUNT 15.8 K/mm3 (4.0-10.0)
[2017-08-24] MEDS: CEFTRIAXONE 1 GM in DEXTROSE 5%-WATER - 50 ML IVPB SCH (09:05)
[2017-08-24] MEDS: PRENATAL VITAMINS W/ FOLIC ACID TABLET (FP) PO SCH (09:09)
[2017-08-24 09:15] LABS: ANION GAP 11 (8-16); BLOOD UREA NITROGEN 5 mg/dL (7-18); CALCIUM 7.6 mg/dL (8.5-10.1); CHLORIDE 104 mmol/L (98-107); CO2 22 mmol/L (21-32); CREATININE 0.3 mg/dL (0.55-1.02); GLUCOSE,RANDOM 81 mg/dL (74-106); POTASSIUM 3.2 mmol/L (3.5-5.1); SODIUM 137 mmol/L (136-145)
--- NOTE | 2017-08-24 11:18 | PN ---
Teaching Attending Note Name of Resident: Erik Vega ATTENDING PHYSICIAN STATEMENT I saw and evaluated the patient. I reviewed the resident's note and discussed the case with the resident. I agree with the resident's findings and plan as documented. SUBJECTIVE:small episode of vomiting this AM but was able to eat breakfast after without difficulty. states L flank pain significantly improved. wants to go home. denies CP, SOB, fever, chills, C/D, hematuria or rectal bleeding. OBJECTIVE: Last Vital Signs Temp Pulse Resp BP Pulse Ox 99.1 F 102 H 18 112/54 98 08/24/17 09:22 08/24/17 09:22 08/24/17 09:22 08/24/17 09:22 08/23/17 03:53 General NAD Lungs CTA B/L no wheezing/rales/rhonchi Abdomen mild L flank tenderness soft ASSESSMENT AND PLAN: 26yo F wtih PMH nephrolithasis presented to the ER with vomiting and low back pain and found to be septic due to pyelonephritis 1. Sepsis due to pyelnephritis- clinical improved. leukocytosis trending down. on Ceftriaxone day 2. Spoke with micro and should have results from urine culture today. pending on results can transition to po to complete 10 day course. 2. L hydronephrosis-in setting of hx of nephrolithasis. us/ bladder done not showing any obstruction. although not the best study, as symptoms are improving with antibiotic therapy less concerned for obstruction. likely physiologic with . can have renal u/s repeated after termination to evaluate if resolved. 3. +gestation- 10 weeks. does not have desire to continue at this time. correction elective is scheduled for 08/25. 4. normocytic anemia- likely dilutional component. repeat cbc. can have iron studies tested as outpatient 5. hypokalemia- due to GI losses. Kcl po 6. DVT ppx- EAM 7. d/c planning today pending results
--- NOTE | 2017-08-24 11:55 | DS ---
Physical Exam: SUBJECTIVE: Patient seen and examined. Tmax 99.5. Says she had nausea and vomiting all night. Says left flank pain better today but more cramping in nature. She denies sob, dizziness, chest pain, dysuria, hematuria. OBJECTIVE: Vital Signs Period Temp Pulse Resp BP Sys/Dukes Pulse Ox Last 24 Hr 98.5 F-99.9 F 79-102 18-18 106-117/54-67 PHYSICAL EXAM GENERAL: The patient is awake, alert, and fully oriented, in no acute distress. HEAD: Normal with no signs of trauma. EYES: PERRL, extraocular movements intact, sclera anicteric, conjunctiva clear. No ptosis. ENT: oropharynx clear without exudates, moist mucous membranes. NECK: Trachea midline, full range of motion, supple. LUNGS: Breath sounds equal, clear to auscultation bilaterally, no wheezes, no crackles, no accessory muscle use. HEART: Regular rate and rhythm, S1, S2 without murmur, rub or gallop. ABDOMEN: LUQ tenderness to deep palpation, nondistended, normoactive bowel sounds, no guarding, no rebound, + L CVA tenderness EXTREMITIES: 2+ pulses, warm, well-perfused, no edema. NEUROLOGICAL: Cranial nerves II through XII grossly intact. Normal speech, gait not observed. PSYCH: Normal mood, normal affect. SKIN: Warm, dry, normal turgor, no rashes or lesions noted LABS Laboratory Results - last 24 hr 08/24/17 08/24/17 08:00 08:00 WBC 15.8 H RBC 3.15 L Hgb 9.7 L Hct 29.1 L MCV 92.4 MCH 30.7 MCHC 33.2 RDW 13.9 Plt Count 268 MPV 9.3 Sodium 137 Potassium 3.2 L Chloride 104 Carbon Dioxide 22 Anion Gap 11 BUN 5 L Creatinine 0.3 L Random Glucose 81 Calcium 7.6 L HOSPITAL COURSE: Date of Admission:08/23/17 26 year old female who is 9 weeks with a significant PMH of kidney stones who came to the emergency department with L flank pain and vomiting since morning found to have UTI and Sepsis due to pyelonephritis. UA was positive. WBC 19.8 on admission. Patient was started on IV abx: Ceftriaxone (2 days), started on IV fluids and given Zofran for nausea. Cultures came back positive for Gram negative lactose fermenting gram negative bacilli. Abd U/S: mild to moderate B/L left sided hydronpehrosis. Bladder U/S unremarkable for obstruction. Patient symptoms improved and WBC trending down. Patient medically cleared for discharge. Patient stated she does not plan on keeping the baby and is scheduled for an tomorrow. She is to follow up with her PCP in 1 week. Date of Discharge: 08/24/17 Discharge Summary Reason For Visit: ACUTE PYELONEPHRITIS Current Active Problems Acute pyelonephritis (Acute) Condition: Improved - Instructions Diet, Activity, Other Instructions: You were because you have an infection in your kidney. You will be sent home on oral antibiotics. Please take your medications as directed. You will need to see your primary care physician in 1 week. It is recommended you check your iron levels when you see your doctor. Disposition: HOME - Home Medications Comprehensive Discharge Medication List: Ambulatory Orders Famotidine [Pepcid] 20 mg PO BID PRN #20 tablet 07/30/17 Metoclopramide HCl [Reglan] 10 mg PO Q8H PRN #15 tablet 07/30/17 Vit Calc,Iron,Folic [ Vitamins] 1 each PO DAILY #30 tablet
[2017-08-24 12:05] LABS: HEMATOCRIT 29.4 % (32.4-45.2); HEMOGLOBIN 9.6 GM/dL (10.7-15.3); MCH 30.2 pg (25.7-33.7); MCHC 32.7 g/dl (32.0-36.0); MEAN CELL VOLUME 92.4 fl (80-96); MEAN PLT VOLUME 9.1 fl (7.5-11.1); PLATELET COUNT 289 K/MM3 (134-434); RBC 3.18 M/mm3 (3.60-5.2); RDW 14.2 % (11.6-15.6); WHITE BLOOD COUNT 15.7 K/mm3 (4.0-10.0)
[2017-08-24] MEDS ORDERED: POTASSIUM CHLORIDE TABS 20 MEQ TABLET.ER (FP) PO ONE (12:30)
[2017-08-24] MEDS ORDERED: MAGNESIUM SULF 50% (8.12 MEQ/2 ML-1 GM VIAL) IVPB ONE (12:30)
--- NOTE | 2017-08-24 16:06 | PN ---
Physical Exam: SUBJECTIVE: Patient seen and examined. Tmax 99.5. Says she had nausea and vomiting all night. Says left flank pain better today but more cramping in nature. She denies sob, dizziness, chest pain, dysuria, hematuria. OBJECTIVE: Vital Signs Period Temp Pulse Resp BP Sys/Dukes Pulse Ox Last 24 Hr 98.6 F-101.6 F 82-103 18-20 106-117/54-67 GENERAL: The patient is awake, alert, and fully oriented, in no acute distress. HEAD: Normal with no signs of trauma. EYES: PERRL, extraocular movements intact, sclera anicteric, conjunctiva clear. No ptosis. ENT: oropharynx clear without exudates, moist mucous membranes. NECK: Trachea midline, full range of motion, supple. LUNGS: Breath sounds equal, clear to auscultation bilaterally, no wheezes, no crackles, no accessory muscle use. HEART: Regular rate and rhythm, S1, S2 without murmur, rub or gallop. ABDOMEN: LUQ tenderness to deep palpation, nondistended, normoactive bowel sounds, no guarding, no rebound, + L CVA tenderness EXTREMITIES: 2+ pulses, warm, well-perfused, no edema. NEUROLOGICAL: Cranial nerves II through XII grossly intact. Normal speech, gait not observed. PSYCH: Normal mood, normal affect. SKIN: Warm, dry, normal turgor, no rashes or lesions noted Laboratory Results - last 24 hr 08/24/17 08/24/17 08/24/17 08:00 08:00 11:55 WBC 15.8 H 15.7 H RBC 3.15 L 3.18 L Hgb 9.7 L 9.6 L Hct 29.1 L 29.4 L MCV 92.4 92.4 MCH 30.7 30.2 MCHC 33.2 32.7 RDW 13.9 14.2 Plt Count 268 289 MPV 9.3 9.1 Sodium 137 Potassium 3.2 L Chloride 104 Carbon Dioxide 22 Anion Gap 11 BUN 5 L Creatinine 0.3 L Random Glucose 81 Calcium 7.6 L Active Medications Generic Name Dose Route Start Last Admin Trade Name Freq PRN Reason Stop Dose Admin Acetaminophen 650 mg 08/23/17 18:31 08/24/17 14:42 Tylenol - PO 650 mg Q4H PRN Administration pain Ceftriaxone Sodium 1 gm/ 50 mls @ 100 mls/hr 08/23/17 10:00 08/24/17 09:05 Dextrose IVPB 100 mls/hr DAILY AMEYA Administration Sodium Chloride 1,000 mls @ 100 mls/hr 08/23/17 17:25 08/24/17 01:45 Normal Saline - IV 100 mls/hr ASDIR AMEYA Administration Ondansetron HCl 4 mg 08/23/17 04:14 08/23/17 19:01 Zofran Injection IVPUSH 4 mg Q6H PRN Administration NAUSEA AND/OR VOMITING Multivit/Folic Acid/Iron 1 tab 08/23/17 10:00 08/24/17 09:09 Vitamins (Sjr) - PO Not Given DAILY AMEYA ASSESSMENT/PLAN: 26 year old female who is 9 weeks with a significant PMH of kidney stones who came to the emergency department with L flank pain and vomiting since morning found to have UTI and pyelonephritis. #Sepsis due to Pyelonephritis -101.6 Temp -U/A positive for UTI -Leukocytosis trending down. WBC 15.7 (18.3 on admission) -Cont. IV Abx: Ceftriaxone (Day 2) -Urine cultures positive for gram negative bacilli -IV fluids NS @ 100 ml/hour -Zofran PRN -Abd U/S: mild to moderate B/L left-sided hydronephrosis -No CT because of . -Tylenol PRN for fever #Normocytic Anemia -9.6 (11.4 on admission) -Monitor H&H -Iron studies outpatient -FU Am labs #Hypokalemia -likely from vomiting -repleted with K CL 40meq -FU am labs #Left Hydronephrosis -history of recurrent rephrolithiasis -Abd U/S: mild to moderate B/L left-sided hydronephrosis -FU Pelvic/bladder U/S to rule out obstruction -Cont. IV fluids @ 100 ml/hour -Tylenol PRN for pain control -Bladder U/S- unremarkable for obstruction #Gestation -10 weeks gestation -Patient stated to OBGYN that she does not plan on keeping the baby. [facility]. #FEN -IV fluids NS @100ml/hour -WNL -Regular #DVT PPx -SCDs -EAM Visit type - Emergency Visit Emergency Visit: Yes ED Registration Date: 08/23/17 Care time: The patient presented to the Emergency Department on the above date and was hospitalized for further evaluation of their emergent condition. - New Patient This patient is new to me today: No - Critical Care Critical Care patient: No
[2017-08-25 08:26] LABS: HEMATOCRIT 30.5 % (32.4-45.2); HEMOGLOBIN 9.9 GM/dL (10.7-15.3); MCH 30.4 pg (25.7-33.7); MCHC 32.6 g/dl (32.0-36.0); MEAN CELL VOLUME 93.4 fl (80-96); MEAN PLT VOLUME 9.7 fl (7.5-11.1); PLATELET COUNT 290 K/MM3 (134-434); RBC 3.27 M/mm3 (3.60-5.2); WHITE BLOOD COUNT 13.9 K/mm3 (4.0-10.0)
[2017-08-25 08:55] LABS: ANION GAP 10 (8-16); BLOOD UREA NITROGEN 3 mg/dL (7-18); CALCIUM 8.3 mg/dL (8.5-10.1); CHLORIDE 103 mmol/L (98-107); CO2 25 mmol/L (21-32); CREATININE 0.4 mg/dL (0.55-1.02); GLUCOSE,RANDOM 77 mg/dL (74-106); POTASSIUM 3.2 mmol/L (3.5-5.1); SODIUM 138 mmol/L (136-145)
[2017-08-25] MEDS: PRENATAL VITAMINS W/ FOLIC ACID TABLET (FP) PO SCH ×2 (09:57→09:59)
[2017-08-25] MEDS: CEFTRIAXONE 1 GM in DEXTROSE 5%-WATER - 50 ML IVPB SCH (09:57)
[2017-08-25] MEDS: SODIUM CHLORIDE 1,000 ML IV SCH (10:00)
[2017-08-25 12:34] VITALS: BP 111/64; PULSE 72; TEMP 98.8
[2017-08-25] MEDS ORDERED: POTASSIUM CHLORIDE TABS 20 MEQ TABLET.ER (FP) PO ONE (12:45)
--- NOTE | 2017-08-25 18:31 | PN ---
Teaching Attending Note Name of Resident: Erik Vega ATTENDING PHYSICIAN STATEMENT I saw and evaluated the patient. I reviewed the resident's note and discussed the case with the resident. I agree with the resident's findings and plan as documented. SUBJECTIVE:mild nausea this AM but improved. was able to tolerate breakfast. denies CP, SOB, fever, chills, dizzyness, V/C/D OBJECTIVE: Last Vital Signs Temp Pulse Resp BP Pulse Ox 98.8 F 72 20 111/64 98 08/25/17 11:30 08/25/17 11:30 08/25/17 11:30 08/25/17 11:30 08/23/17 03:53 General NAD Lungs CTA B/L no wheezing/rales/rhonchi Abdomen soft NT/ND no flank tenderness no CVA tenderness ASSESSMENT AND PLAN: 26yo F wtih PMH nephrolithasis presented to the ER with vomiting and low back pain and found to be septic due to pyelonephritis 1. Sepsis due to pyelnephritis-Tm101.6 no repeat fevers since yesterday afternoon. UCx growing Klebsiella sensitive to cephalosporin. will transition to kelfex to complete 10 day course. 2. L hydronephrosis-in setting of hx of nephrolithasis. pain resolved. likely physiologic from . can have repeat imaging after as outpatient to evaluate for resolution if symtpoms return. 3. +gestation- 10 weeks. does not have desire to continue at this time. missed appt for termination of . it is rescheduled for 08/26 4. normocytic anemia- likely dilutional component.Hgb stable. can have iron studies done as outpatient 5. hypokalemia- due to GI losses. Kcl po 6. DVT ppx- EAM 7. d/c home
--- NOTE | 2017-08-25 19:09 | DS ---
Physical Exam: SUBJECTIVE: Patient seen and examined OBJECTIVE: Vital Signs Period Temp Pulse Resp BP Sys/Dukes Pulse Ox Last 24 Hr 98.7 F-99.8 F 72-96 18-20 108-113/63-65 PHYSICAL EXAM GENERAL: The patient is awake, alert, and fully oriented, in no acute distress. HEAD: Normal with no signs of trauma. EYES: PERRL, extraocular movements intact, sclera anicteric, conjunctiva clear. ENT: Ears normal, nares patent, oropharynx clear without exudates, moist mucous membranes. NECK: Trachea midline, full range of motion, supple. LUNGS: Breath sounds equal, clear to auscultation bilaterally, no wheezes, no crackles, no accessory muscle use. HEART: Regular rate and rhythm, S1, S2 without murmur, rub or gallop. ABDOMEN: Soft, nontender, nondistended, normoactive bowel sounds, no guarding, no rebound, no hepatosplenomegaly, no masses. EXTREMITIES: 2+ pulses, warm, well-perfused, no edema. NEUROLOGICAL: Cranial nerves II through XII grossly intact. Normal speech, gait not observed. PSYCH: Normal mood, normal affect. SKIN: Warm, dry, normal turgor, no rashes or lesions noted. LABS Laboratory Results - last 24 hr 08/25/17 08/25/17 07:30 07:30 WBC 13.9 H RBC 3.27 L Hgb 9.9 L Hct 30.5 L MCV 93.4 MCH 30.4 MCHC 32.6 RDW 14.0 Plt Count 290 MPV 9.7 Sodium 138 Potassium 3.2 L Chloride 103 Carbon Dioxide 25 Anion Gap 10 BUN 3 L Creatinine 0.4 L Random Glucose 77 Calcium 8.3 L HOSPITAL COURSE: Date of Admission:08/23/17 Date of Discharge: 08/25/17 Discharge Summary Reason For Visit: ACUTE PYELONEPHRITIS Condition: Improved - Instructions Diet, Activity, Other Instructions: You were here because you have an infection in your kidney. Please drink plenty of water daily. You will be sent home on oral antibiotics for 7 days. You will need to see your primary care physician in 1 week. You should have your blood counts repeated and evaluated for iron deficiency. If your symptoms worsen or develop fever (temp >101) return to the ER. Referrals: Red Vega MD [Staff Physician] - 1 Week Disposition: HOME - Home Medications Comprehensive Discharge Medication List: Ambulatory Orders Cephalexin Monohydrate [Keflex -] 500 mg PO BID #14 capsule 08/24/17 Vitamins (Sjr) - 1 tab PO DAILY tablet 08/24/17
--- NOTE | 2017-08-26 16:26 | DS ---
Physical Exam: SUBJECTIVE: Patient seen and examined. Afebrile overnight. Says left flank pain better today and had 1 episode of vomiting in the am. She denies sob, dizziness , chest pain, dysuria, hematuria. OBJECTIVE: PHYSICAL EXAM GENERAL: The patient is awake, alert, and fully oriented, in no acute distress. HEAD: Normal with no signs of trauma. EYES: PERRL, extraocular movements intact, sclera anicteric, conjunctiva clear. No ptosis. ENT: oropharynx clear without exudates, moist mucous membranes. NECK: Trachea midline, full range of motion, supple. LUNGS: Breath sounds equal, clear to auscultation bilaterally, no wheezes, no crackles, no accessory muscle use. HEART: Regular rate and rhythm, S1, S2 without murmur, rub or gallop. ABDOMEN: No TTP, nondistended, normoactive bowel sounds, no guarding, no rebound , + L CVA tenderness (improved) EXTREMITIES: 2+ pulses, warm, well-perfused, no edema. NEUROLOGICAL: Cranial nerves II through XII grossly intact. Normal speech, gait not observed. PSYCH: Normal mood, normal affect. SKIN: Warm, dry, normal turgor, no rashes or lesions noted LABS HOSPITAL COURSE: Date of Admission:08/23/17 26 year old female who is 9 weeks with a significant PMH of kidney stones who came to the emergency department with L flank pain and vomiting since morning found to have UTI and Sepsis due to pyelonephritis. UA was positive. WBC 19.8 on admission. Patient was started on IV abx: Ceftriaxone (3 days), started on IV fluids and given Zofran for nausea. Cultures came back positive for Kleb PNA. Abd U/S: mild to moderate B/L left sided hydronpehrosis. Bladder U/S unremarkable for obstruction. Patient symptoms improved and WBC trending down. Patient medically cleared for discharge. Patient will be discharged on 7 days of oral Abx. Patient stated she does not plan on keeping the baby and is scheduled for an tomorrow. She is to follow up with her PCP in 1 week. Date of Discharge: 08/26/17 Minutes to complete discharge: 35 Discharge Summary Reason For Visit: ACUTE PYELONEPHRITIS Condition: Improved - Instructions Diet, Activity, Other Instructions: You were here because you have an infection in your kidney. Please drink plenty of water daily. You will be sent home on oral antibiotics for 7 days. You will need to see your primary care physician in 1 week. You should have your blood counts repeated and evaluated for iron deficiency. If your symptoms worsen or develop fever (temp >101) return to the ER. Referrals: Red Vega MD [Staff Physician] - 1 Week Disposition: HOME - Home Medications Comprehensive Discharge Medication List: Ambulatory Orders Cephalexin Monohydrate [Keflex -] 500 mg PO BID #14 capsule 08/24/17 Vitamins (Sjr) - 1 tab PO DAILY tablet 08/24/17 This patient is new to me today: No Emergency Visit: Yes ED Registration Date: 08/23/17 Care time: The patient presented to the Emergency Department on the above date and was hospitalized for further evaluation of their emergent condition. Critical Care patient: No - Discharge Referral Referred to [facility] No
== END 2017-08-25 13:40 | disposition home or self-care (01) | DRG 566 ==
LOC: JER 22:51 → INTOOBSV 08-23 03:52 → JERBED 08-23 03:52 → UNDOADMIN 08-23 04:19 → JERBED 08-23 04:19 → J3W 08-23 05:27 → OBSVTOIN 08-23 15:58
PROVIDERS: ADMIT Internal Medicine; ATTEND Internal Medicine
DX: O23.01 Infections of kidney in pregnancy, first trimester (principal); A41.9 Sepsis, unspecified organism; N13.30 Unspecified hydronephrosis; N10 Acute pyelonephritis; E87.6 Hypokalemia; Z3A.09 9 weeks gestation of pregnancy
CPT/HCPCS: 36415; 76775-TC; 76856-TC; 80048; 80053; 81003; 81015; 83735; 84100; 84702; 85025; 85027; 87086; 87186; 99283-25; G0378

== ENCOUNTER 2018-07-30 14:33 | Inpatient (IN) | payer MEDICARE, OTHER ==
[2018-07-30 14:43] VITALS: BMI 21.9
--- NOTE | 2018-07-30 15:01 | PDOC ---
History of Present Illness - General Chief Complaint: Cold Symptoms Stated Complaint: COUGHING/SIDE PAIN Time Seen by Provider: 07/30/18 15:00 History Source: Patient Exam Limitations: No Limitations - History of Present Illness Initial Comments: 07/30/18 15:14 His with kidney stones with patient came to emergency department with left flank /left side pain with URI symptoms 1 week. States is spiked fevers on and off Tmax 100.9 and been using [id number] medications for relief of symptoms. States coughing may have caused pain in her left flank however with her significant history of pyelonephritis and kidney stones worried that may have recurrence of obstruction. States urine has been dark but has not noticed any bleeding was not noted to a passed kidney kidney stones although was not collecting. Timing/Duration: reports: getting worse Severity: reports: mild, moderate Associated Symptoms: reports: fever/chills, muscle aches Past History - Travel Traveled outside of the country in the last 30 days: No Close contact w/someone who was outside of country & ill: No - Past Medical History Allergies/Adverse Reactions: Allergies Allergy/AdvReac Type Severity Reaction Status Date / Time No Known Allergies Allergy Verified 07/30/17 11:30 Home Medications: Ambulatory Orders NK [No Known Home Medication] 07/30/18 Asthma: No Cancer: No Cardiac Disorders: No CVA: No COPD: No DVT: No Diabetes: No Disorders: Yes (renal stones) HTN: No Kidney Stones: Yes Seizures: No Thyroid Disease: No - Reproductive History Therapeutic (s) & number: Yes - Immunization History Immunization Up to Date: Yes - Suicide/Smoking/Psychosocial Hx Smoking History: Never smoked Have you smoked in the past 12 months: No Information on smoking cessation initiated: No Hx Alcohol Use: No Drug/Substance Use Hx: No Substance Use Type: None Hx Substance Use Treatment: No Review of Systems - Review of Systems Able to Perform ROS?: Yes Is the patient limited Hebrew proficient: Yes Constitutional: Yes: Symptoms Reported, See HPI, Fever, Malaise HEENTM: Yes: Symptoms Reported, Nose Congestion. No: Throat Pain, Throat Swelling Respiratory: Yes: Symptoms reported, See HPI, Cough. No: Wheezing ABD/GI: Yes: Symptoms Reported, See HPI : Yes: See HPI. No: Symptoms Reported, Burning, Dysuria, Discharge, Hematuria All Other Systems: Reviewed and Negative *Physical Exam - Vital Signs Last Vital Signs Temp Pulse Resp BP Pulse Ox 98.5 F 70 18 120/71 98 07/30/18 14:41 07/30/18 14:41 07/30/18 14:41 07/30/18 14:41 07/30/18 14:41 - Physical Exam General Appearance: Yes: Nourished, Appropriately Dressed HEENT: positive: DEIM, Normal ENT Inspection, TMs Normal, Pharynx Normal, Rhinorrhea, Sinus Tenderness Neck: positive: Supple, Lymphadenopathy (R), Lymphadenopathy (L). negative: Tender Respiratory/Chest: positive: Lungs Clear (with some pleuritic chest pain on the left side deep inspiration). negative: Decreased Breath Sounds, Rhonchi, Wheezing Gastrointestinal/Abdominal: positive: Normal Bowel Sounds, Soft. negative: Tender Musculoskeletal: positive: Normal Inspection, CVA Tenderness (mild bilateral) Extremity: positive: Normal Capillary Refill, Normal Inspection, Normal Range of Motion, Tender Integumentary: positive: Normal Color, Dry, Warm, Pale Neurologic: positive: brush loader and handle attacher II-XII NML intact, Fully Oriented, Alert, Normal Mood/ Affect, Normal Response, Motor Strength 5/5 Moderate Sedation - Procedure Monitoring Vital Signs: Procedure Monitoring Vital Signs Temperature 98.5 F 07/30/18 14:41 Pulse Rate 70 07/30/18 14:41 Respiratory Rate 18 07/30/18 14:41 Blood Pressure 120/71 07/30/18 14:41 O2 Sat by Pulse Oximetry (%) 98 07/30/18 14:41 ED Treatment Course - LABORATORY CBC & Chemistry Diagram: 07/30/18 16:00 07/30/18 16:00 Medical Decision Making - Medical Decision Making 07/30/18 16:10 Urine shows and evidence of recurrent Chadwick and or obstructing stones. Patient was updated and understands need to continue treatment which will include lab work, and renal CAT scan to rule out hydronephrosis and Chadwick. Dr. Taylor charge nurse Zoraida updated on patient moved to room 12 hallway for further treatment and evaluation 07/30/18 16:59 Patient received CAT scan, has requested and given pain medications, Toradol 30 mg IV push given by myself at 1650 and is now located in 12 hallway in the emergency department. Labs been sent, and patient is waiting evaluation per ER. *DC/Admit/Observation/Transfer Diagnosis at time of Disposition: Obstructive uropathy, UTI (urinary tract infection) - Discharge Dispostion Condition at time of disposition: Guarded - Referrals Referrals: Carolynn Wu [Primary Care Provider] - - Patient Instructions - Post Discharge Activity
[2018-07-30 15:29] LABS: HCG,QUALITATIVE URINE Negative
[2018-07-30 15:35] LABS: URINE APPEARANCE CLOUDY; URINE BILIRUBIN NEGATIVE (<2.0 mg/dL); URINE GLUCOSE (UA) NEGATIVE (NEGATIVE); URINE KETONE TRACE (NEGATIVE); URINE LEUK ESTERASE 3+ (NEGATIVE); URINE NITRITE POSITIVE (NEGATIVE); URINE PROTEIN 3+ (NEGATIVE); URINE UROBILINOGEN NEGATIVE mg/dL (0.2-1.0)
[2018-07-30 15:45] LABS: URINE COLOR YELLOW
[2018-07-30 15:48] LABS: EPI CELLS RARE /HPF (FEW); URINE BACTERIA MODERATE /hpf (NONE SEEN); URINE MUCUS MANY
[2018-07-30 16:33] LABS: BASO % 0.5 % (0-2.0); EOS % 0.2 % (0-4.5); LYMPH % 45.1 % (8-40); MCH 31.9 pg (25.7-33.7); MCHC 34.2 g/dl (32.0-36.0); MEAN CELL VOLUME 93.1 fl (80-96); MEAN PLT VOLUME 9.6 fl (7.5-11.1); MONO % 8.7 % (3.8-10.2); NEUT % 45.5 % (42.8-82.8); PLATELET COUNT 288 K/MM3 (134-434); RDW 12.9 % (11.6-15.6); WHITE BLOOD COUNT 5.9 K/mm3 (4.0-10.0)
[2018-07-30] MEDS ORDERED: KETOROLAC TROMETHAMINE 30 MG/1 ML VIAL IVPUSH ONE (16:50)
[2018-07-30] MEDS ORDERED: KETOROLAC TROMETHAMINE 30 MG/1 ML VIAL ONE (16:53)
--- NOTE | 2018-07-30 17:05 | PDOC ---
*Physical Exam - Vital Signs Last Vital Signs Temp Pulse Resp BP Pulse Ox 98.5 F 70 18 120/71 98 07/30/18 14:41 07/30/18 14:41 07/30/18 14:41 07/30/18 14:41 07/30/18 14:41 ED Treatment Course - LABORATORY CBC & Chemistry Diagram: 07/30/18 16:00 07/30/18 16:00 - ADDITIONAL ORDERS Additional order review: Laboratory Results 07/30/18 15:20 Urine Color Yellow Urine Appearance Cloudy Urine pH 5.0 Ur Specific [place] 1.023 Urine Protein 3+ H D Urine Glucose (UA) Negative Urine Ketones Trace H Urine Blood 3+ H Urine Nitrite Positive Urine Bilirubin Negative Urine Urobilinogen Negative Ur Leukocyte Esterase 3+ H Urine WBC (Auto) 1393 Urine RBC (Auto) 1055 Ur Epithelial Cells Rare Urine Bacteria Moderate Urine Mucus Many Urine HCG, Qual Negative 07/30/18 16:00 RBC 4.40 MCV 93.1 MCHC 34.2 RDW 12.9 MPV 9.6 Neutrophils % 45.5 D Lymphocytes % 45.1 H D Monocytes % 8.7 Eosinophils % 0.2 D Basophils % 0.5 D - Medications Given in the ED: ED Medications Discontinued Medications Generic Name Dose Route Start Last Admin Trade Name Freq PRN Reason Stop Dose Admin Ketorolac Tromethamine 30 mg 07/30/18 16:50 07/30/18 16:59 Toradol Injection - IVPUSH 07/30/18 16:51 30 mg ONCE ONE Administration Medical Decision Making - Medical Decision Making 07/30/18 17:05 Pt seen by the Advanced Practice Provider under my direct supervision Pt interviewed and examined Ancillary studies reviewed I agree with plan as outlined by the Advanced Practice Provider DYE REEL OPERATOR HELPER Guero 07/30/18 17:13 Reports L flank pain. Thinks it's kidney stones. UA reviewed. + nitrates. + leukocytes. Will treat as pylonephritis. Microbiology reviewed. IV ceftriaxone. CT scan pending. If concerns for obstruction, admit with stat uro consultation. 07/30/18 18:12 CAT scan demonstrates a 1 x 1.6 x 0.7 cm consultation left renal pelvis. Associated with mild left-sided hydronephrosis. Punctate nonobstructing calculus intrarenal collecting system the right kidney. No evidence of ureteral or bladder calculi. No history of GI tract obstruction. Given the mild hydronephrosis along with urine infection, findings are potentially concerning for obstructive kidney stone. We'll need to consult urology. We'll likely need to admit the patient to the hospital. 07/30/18 18:[address] Dias by Dr. Chacko. NPO after midnight. Admit. *DC/Admit/Observation/Transfer - Referrals Referrals: Carolynn Wu [Primary Care Provider] - - Patient Instructions - Post Discharge Activity
[2018-07-30 17:07] LABS: ALBUMIN 4.3 g/dl (3.4-5.0); ALK PHOS 65 U/L (45-117); ANION GAP 10 MMOL/L (8-16); BILIRUBIN,TOTAL 0.3 mg/dL (0.2-1); BLOOD UREA NITROGEN 11 mg/dL (7-18); CALCIUM 9.3 mg/dL (8.5-10.1); CHLORIDE 105 mmol/L (98-107); CO2 24 mmol/L (21-32); CREATININE 0.5 mg/dL (0.55-1.3); GLUCOSE,RANDOM 78 mg/dL (74-106); LIPASE 141 U/L (73-393); POTASSIUM 3.6 mmol/L (3.5-5.1); SGOT/AST 21 U/L (15-37); SGPT/ALT 27 U/L (13-61); SODIUM 138 mmol/L (136-145); TOT PROT 8.7 g/dl (6.4-8.2)
[2018-07-30] MEDS ORDERED: ACETAMINOPHEN 1000 MG/100 ML VIAL (NON FORMULARY) IVPB ONE (17:12)
[2018-07-30] MEDS ORDERED: CEFTRIAXONE 1,000 MG in DEXTROSE 5%-WATER - 50 ML IVPB ONE (17:12)
[2018-07-30] MEDS ORDERED: ACETAMINOPHEN INJECTION 100 ML IVPB ONE (17:59)
[2018-07-30] MEDS ORDERED: CEFTRIAXONE 1 GM/50 ML BAG ONE (17:59)
--- NOTE | 2018-07-30 19:15 | PDOC ---
*Physical Exam - Vital Signs Last Vital Signs Temp Pulse Resp BP Pulse Ox 98.5 F 70 18 120/71 99 07/30/18 14:41 07/30/18 14:41 07/30/18 14:41 07/30/18 14:41 07/30/18 17:50 07/30/18 19:00 I have assumed patient's care from [employer]ERSON [employer] Ade Jack and Dr. Taylor. The patient has obstructive uropathy, UTI, needs admission for IV abx and urology consult. I have spoken with Urology on-call provider Dr. Alva who requests NPO as of midnight. Order placed for NPO at midnight and for consult. Microblog sent to [facility] for admission. Blank Decision to Admit order placed per ED protocol. ED Treatment Course - LABORATORY CBC & Chemistry Diagram: 07/30/18 16:00 07/30/18 16:00 - ADDITIONAL ORDERS Additional order review: Laboratory Results 07/30/18 07/30/18 16:00 15:20 Sodium 138 Potassium 3.6 Chloride 105 Carbon Dioxide 24 Anion Gap 10 BUN 11 Creatinine 0.5 L Creat Clearance w eGFR > 60 Random Glucose 78 Calcium 9.3 Total Bilirubin 0.3 AST 21 ALT 27 Alkaline Phosphatase 65 Total Protein 8.7 H Albumin 4.3 Lipase 141 Urine Color Yellow Urine Appearance Cloudy Urine pH 5.0 Ur Specific [place] 1.023 Urine Protein 3+ H D Urine Glucose (UA) Negative Urine Ketones Trace H Urine Blood 3+ H Urine Nitrite Positive Urine Bilirubin Negative Urine Urobilinogen Negative Ur Leukocyte Esterase 3+ H Urine WBC (Auto) 1393 Urine RBC (Auto) 1055 Ur Epithelial Cells Rare Urine Bacteria Moderate Urine Mucus Many Urine HCG, Qual Negative 07/30/18 16:00 RBC 4.40 MCV 93.1 MCHC 34.2 RDW 12.9 MPV 9.6 Neutrophils % 45.5 D Lymphocytes % 45.1 H D Monocytes % 8.7 Eosinophils % 0.2 D Basophils % 0.5 D - Medications Given in the ED: ED Medications Discontinued Medications Generic Name Dose Route Start Last Admin Trade Name Freq PRN Reason Stop Dose Admin Acetaminophen 1,000 mg 07/30/18 17:12 07/30/18 18:05 Ofirmev Injection - IVPB 07/30/18 17:13 Not Given ONCE ONE Ceftriaxone Sodium 1,000 mg/ 50 mls @ 100 mls/hr 07/30/18 17:12 07/30/18 18: 03 Dextrose IVPB 07/30/18 17:41 100 mls/hr ONCE ONE Administration Ketorolac Tromethamine 30 mg 07/30/18 16:50 07/30/18 16:59 Toradol Injection - IVPUSH 07/30/18 16:51 30 mg ONCE ONE Administration Medical Decision Making - Medical Decision Making 07/30/18 20:17 I spoke with Dima Carey and corrected Decision to Admit order with Dr. Denise's name. I have placed an order for EKG. *DC/Admit/Observation/Transfer Diagnosis at time of Disposition: Obstructive uropathy UTI (urinary tract infection) Qualifiers: Urinary tract infection type: acute cystitis Hematuria presence: with hematuria Qualified Code(s): N30.01 - Acute cystitis with hematuria - Discharge Dispostion Condition at time of disposition: Guarded Decision to Admit order: Yes - Referrals Referrals: Carolynn Wu [Primary Care Provider] - - Patient Instructions - Post Discharge Activity
[2018-07-30] MEDS ORDERED: morphine CARPU-JECT 2 MG/1 ML DISP.SYRIN IVPUSH ONE (19:31)
[2018-07-30 19:48] VITALS: TEMP 98.3
[2018-07-30] MEDS ORDERED: MORPHINE SULFATE 2 MG/ML VIAL ONE (19:48)
--- NOTE | 2018-07-30 20:17 | PN ---
Teaching Attending Note Name of Resident: José Miguel Tejeda ATTENDING PHYSICIAN STATEMENT I saw and evaluated the patient. I reviewed the resident's note and discussed the case with the resident. I agree with the resident's findings and plan as documented. SUBJECTIVE: Seen and examined; please refer to resident note for further historical information. Briefly, she has a history of renal stones and had to get R-sided lithotripsy with Dr. Beau Gan in 2013. She doesn't followup with urology regularly post procedure. She hasn't seen her PCP yet and thus would be dispositioned to hospitalist. She comes in with 2 days of L-flank pain and is found to have a positve UA in the ER and a 1x1.6x0.7cm renal stone in the L- renal pelvis with mild L-hydronephrosis. Urology phoned by the ER and will assess her in the AM; medicine will admit and place on abx and pain control. 10 sys ROS done and negative aside from HPI PMH and PSH reviewed FH asked and noncontributory Social hx reviewed Medications reviewed; reconciliation pending OBJECTIVE: VS, labs, imaging reviewed NAD, AAO, resting comfortably in bed NC AT EOMI PERRLA RRR s1/2 no mgr Lungs CTAB w/ sym exp NT ND +BS; L-flank tender extending to CVA on fist percussion CN2-12 wnl, no fnd Labs show unremarkable CBC and unremarkable chemistry; neg hcg with slightly increased serum total prot at 8.7. UA with 3+ prot 3+ blood trace ketones + nitrite and +[address] prelim read shows 1x1.6x0.7cm calcific stone at the L renal pelvis with mild L-hydronephrosis ASSESSMENT AND PLAN: Patient presents with recurring renal stones and positive UA 1) Complicated UTI -Due to hydronephrosis with stone; urology has been contacted by ER and will see patient. -Afebrile, hemodynamically stable, no WBC count. UA is convincing. Presence of recurring stones in the history, etc. noted. -Prior Cx results reviewed; shows clay Sn E. Coli and Klebsiella -Continue ceftriaxone 1g QD; followup blood and urine cultures; followup with urology consult. Appreciate their presence on the case. -Pain control with PRN Ultram and PRN APAP 2) L-Hydronephrosis with 1x1.6x.7cm stone in renal pelvis -Management per urology; can start tamsulosin 0.4 qHS 3) Elevated total protein -Followup CMP as outpatient FENA -LR@75cc/hr -PRN replete -NPO@MN until seen by urology -As tolerated DVT px: SCDs/Early Ambulation Full Code
--- NOTE | 2018-07-30 20:50 | HP ---
CHIEF COMPLAINT: PCP: None reported. HISTORY OF PRESENT ILLNESS: 27 yo F PMH recurring kidney stones w/ R lithotripsy with Dr. Beau Gan in 2013, p /w left flank/left side pain x 1d with URI symptoms 1 week. Pt has a hx of recurring kidney stones, she notes her first one was in 2012 and she tends to get them w/ or when she is sick as she recently was this past week w/ URI sxs of cough, fever, chills. She also notes that in general she doesnt drink that much water and has had a decreased fluid intake this past week while sick. pt endorses fevers on and off Tmax 100.9 and used tylenol for relief of symptoms. States urine has been dark but has not noticed any bleeding. She doesn 't followup with urology regularly and does not have a PCP. denies chest pain, SOB, FREEMAN, dizziness, n/v/d and constipation. Denies dysuria, urgency and hematuria. Denies vit C,calcium supplements or other supplements or changes in diet. Per pt, eats a balanced diet of protein and vegetables although could use more vegetables ER course was notable for: (1) CTX, morphine , toradol 30 mg IV (2)UA + nitrates, 3+LEUK EST, WBC 1300S, RBC 1000s, Urology on-call provider Dr. Alva who requests NPO as of midnight. (3)CAT scan demonstrates a 1 x 1.6 x 0.7 cm consultation left renal pelvis. Associated with mild left-sided hydronephrosis. Punctate nonobstructing calculus intrarenal collecting system the right kidney. No evidence of ureteral or bladder calculi. No history of GI tract obstruction. Recent Travel: PAST MEDICAL HISTORY: per hpi PAST SURGICAL HISTORY: R lithotripsy 2013 Social History: Smoking: denies Alcohol:denies Drugs: occasional marijuana 4 children lives w/ boyfriend Family History: DM Allergies No Known Allergies Allergy (Verified 07/30/17 11:30) HOME MEDICATIONS: [place] shot for contraception Home Medications Medication Instructions Recorded NK [No Known Home Medication] 07/30/18 REVIEW OF SYSTEMS per hpi PHYSICAL EXAMINATION Vital Signs - 24 hr 07/30/18 07/30/18 07/30/18 14:41 17:50 19:10 Temperature 98.5 F 98.3 F Pulse Rate 70 Pulse Rate [ 78 Left Radial] Respiratory 18 18 Rate Blood Pressure 120/71 Blood Pressure 126/62 [Left Arm] O2 Sat by Pulse 98 99 99 Oximetry (%) GENERAL: AOX3 NAD HEAD: NCAT EYES: extraocular movements intact, sclera anicteric, conjunctiva clear. No lid lag. EARS, NOSE, THROAT: Ears normal, nares patent, oropharynx clear without exudates. MMM NECK: Normal range of motion, supple without lymphadenopathy, JVD, or masses. LUNGS: CTAB HEART: RRR, normal S1 and S2 without murmur, rub or gallop. ABDOMEN: Soft, NTND, normoactive bowel sounds, no guarding, no rebound, no masses. MUSCULOSKELETAL: Normal range of motion at all joints. No bony deformities or tenderness. +L CVA UPPER EXTREMITIES: 2+ pulses, warm, well-perfused. No cyanosis. No clubbing. No peripheral edema. LOWER EXTREMITIES: 2+ pulses, warm, well-perfused. No calf tenderness. No peripheral edema. NEUROLOGICAL: Cranial nerves II-XII intact. Normal speech. PSYCHIATRIC: Cooperative. Good eye contact. Appropriate mood and affect. SKIN: Warm, dry, normal turgor, no rashes or lesions noted, normal capillary refill. Laboratory Results - last 24 hr 07/30/18 07/30/18 07/30/18 15:20 16:00 16:00 WBC 5.9 RBC 4.40 Hgb 14.0 Hct 41.0 D MCV 93.1 MCH 31.9 MCHC 34.2 RDW 12.9 Plt Count 288 MPV 9.6 Absolute Neuts (auto) 2.7 Neutrophils % 45.5 D Lymphocytes % 45.1 H D Monocytes % 8.7 Eosinophils % 0.2 D Basophils % 0.5 D Nucleated RBC % 0 Sodium 138 Potassium 3.6 Chloride 105 Carbon Dioxide 24 Anion Gap 10 BUN 11 Creatinine 0.5 L Creat Clearance w eGFR > 60 Random Glucose 78 Calcium 9.3 Total Bilirubin 0.3 AST 21 ALT 27 Alkaline Phosphatase 65 Total Protein 8.7 H Albumin 4.3 Lipase 141 Urine Color Yellow Urine Appearance Cloudy Urine pH 5.0 Ur Specific [place] 1.023 Urine Protein 3+ H D Urine Glucose (UA) Negative Urine Ketones Trace H Urine Blood 3+ H Urine Nitrite Positive Urine Bilirubin Negative Urine Urobilinogen Negative Ur Leukocyte Esterase 3+ H Urine WBC (Auto) 1393 Urine RBC (Auto) 1055 Ur Epithelial Cells Rare Urine Bacteria Moderate Urine Mucus Many Urine HCG, Qual Negative ASSESSMENT/PLAN: 27 yo F PMH recurring kidney stones w/ R lithotripsy with Dr. Beau Gan in 2013, p /w left flank/left side pain x 1d with URI symptoms 1 week. Complicated UTI 2/2 hydronephrosis with nephrolithiasis - UA + nitrates, 3+LEUK EST, WBC 1300S, RBC 1000s. CT scan, 1 x 1.6 x 0.7 cm stone L renal pelvis w/ mild L hydronephrosis. Punctate nonobstructing calculus intrarenal collecting system the R kidney. No evidence of ureteral or bladder calculi s/p CTX, morphine , toradol 30 mg IV in ED urology consult Prior Ucx showed clay Sn E. Coli and Klebsiella c/w CTX 1g QD f/u blood and urine cultures Pain control - tramadol and IV tylenol start tamsulosin 0.4 qHS recommend and will refer f/u w/ a PCP and urologist for outpt diagnostic w/u of etiology of recurring stones encouraged pt to drink more fluid/water per day URI sxs of cough, fever, chills - likely viral f/u Flu test supportive care monitor for fevers, currently afebrile Elevated total protein Followup CMP as outpatient FEN LR 75cc/hr replete prn NPO at midnight ppx SCDs/Early Ambulation Full Code Dispo Medsurg Visit type - Emergency Visit Emergency Visit: Yes ED Registration Date: 07/30/18 Care time: The patient presented to the Emergency Department on the above date and was hospitalized for further evaluation of their emergent condition. - New Patient This patient is new to me today: Yes Date on this admission: 07/30/18 - Critical Care Critical Care patient: No
[2018-07-30] MEDS ORDERED: traMADol HCL 50 MG TABLET PO PRN (20:53)
[2018-07-30] MEDS ORDERED: ACETAMINOPHEN 1000 MG/100 ML VIAL (NON FORMULARY) IVPB PRN (20:54)
[2018-07-30] MEDS ORDERED: LACTATED RINGERS SOLUTION 1,000 ML IV SCH (21:00)
[2018-07-30] MEDS ORDERED: TAMSULOSIN HCL 0.4 MG CAP PO SCH (22:00)
[2018-07-30] MEDS ORDERED: TAMSULOSIN HCL 0.4 MG CAP ONE (22:02)
[2018-07-31 06:00] LABS: BASO % 0.4 % (0-2.0); EOS % 1.1 % (0-4.5); HEMATOCRIT 37.4 % (32.4-45.2); HEMOGLOBIN 12.2 GM/dL (10.7-15.3); MCH 30.7 pg (25.7-33.7); MCHC 32.6 g/dl (32.0-36.0); MEAN CELL VOLUME 94.2 fl (80-96); MEAN PLT VOLUME 9.6 fl (7.5-11.1); MONO % 10.9 % (3.8-10.2); NEUT % 32.6 % (42.8-82.8); PLATELET COUNT 232 K/MM3 (134-434); RBC 3.97 M/mm3 (3.60-5.2); RDW 12.8 % (11.6-15.6); WHITE BLOOD COUNT 6.8 K/mm3 (4.0-10.0)
[2018-07-31 06:11] LABS: INR 1.15 (0.83-1.09); PROTHROMBIN TIME (PATIENT) 13.6 SEC (9.7-13.0)
[2018-07-31 06:35] LABS: ALBUMIN 3.3 g/dl (3.4-5.0); ALK PHOS 51 U/L (45-117); ANION GAP 7 MMOL/L (8-16); BILIRUBIN,TOTAL 0.2 mg/dL (0.2-1); BLOOD UREA NITROGEN 19 mg/dL (7-18); CALCIUM 8.4 mg/dL (8.5-10.1); CHLORIDE 106 mmol/L (98-107); CO2 27 mmol/L (21-32); CREATININE 0.6 mg/dL (0.55-1.3); GLUCOSE,RANDOM 83 mg/dL (74-106); MAGNESIUM 2.4 mg/dL (1.8-2.4); PHOSPHOROUS 4.6 mg/dL (2.5-4.9); SGOT/AST 51 U/L (15-37); SGPT/ALT 44 U/L (13-61); SODIUM 140 mmol/L (136-145); TOT PROT 6.6 g/dl (6.4-8.2)
[2018-07-31 07:40] VITALS: BP 123/60; PULSE 68
--- NOTE | 2018-07-31 09:49 | EKG ---
Test Reason : Blood Pressure : / mmHG Vent. Rate : 062 BPM Atrial Rate : 062 BPM P-R Int : 136 ms QRS Dur : 084 ms QT Int : 444 ms P-R-T Axes : 061 077 062 degrees QTc Int : 450 ms NORMAL SINUS RHYTHM WITH SINUS ARRHYTHMIA NORMAL ECG NO PREVIOUS ECGS AVAILABLE Confirmed by AVI KOHLER, SCARLETT ([id number]) on 07/31/2018 9:48:31 AM Referred By: Confirmed By:SCARLETT CÁRDENAS MD
--- NOTE | 2018-07-31 10:05 | DS ---
Physical Examination Vital Signs: Vital Signs Temperature 36.8 C 07/31/18 07:39 Pulse Rate 68 07/31/18 07:39 Respiratory Rate 18 07/31/18 07:39 Blood Pressure 123/60 07/31/18 07:39 O2 Sat by Pulse Oximetry (%) 98 07/31/18 07:39 Labs: CBC, BMP 07/31/18 05:44 07/31/18 05:44 Discharge Summary Reason For Visit: URINARY TRACT INFECTION, OBSTRUCTIVE UROPATHY Current Active Problems Obstructive uropathy (Acute) UTI (urinary tract infection) (Acute) Hospital Course: Ms Cristina is leaving against medical advice. Risks of leaving were explained and she understood. She was told she can come back later. Condition: Guarded - Instructions Referrals: Carolynn Wu [Primary Care Provider] - - Home Medications Comprehensive Discharge Medication List: Ambulatory Orders NK [No Known Home Medication] 07/30/18
[2018-07-31] MEDS ORDERED: SODIUM CHLORIDE 1,000 ML IV SCH (17:01)
[2018-07-31] MEDS ORDERED: CEFTRIAXONE 1 GM in DEXTROSE 5%-WATER - 50 ML IVPB SCH (18:00)
== END 2018-07-31 10:17 | disposition left against medical advice (07) | DRG 463 ==
LOC: JERFT 14:33 → JER 14:33 → JERBED 19:16
PROVIDERS: ADMIT Internal Medicine; ATTEND Internal Medicine
DX: N13.6 Pyonephrosis (principal); J06.9 Acute upper respiratory infection, unspecified; N39.0 Urinary tract infection, site not specified; N13.9 Obstructive and reflux uropathy, unspecified
CPT/HCPCS: 36415; 74176; 80053; 81003; 81015; 83690; 83735; 84100; 84703; 85025; 85610; 85730; 87040; 93005; 93010; 99283-25

== ENCOUNTER 2018-08-07 19:51 | Inpatient (IN) | payer OTHER ==
--- NOTE | 2018-08-07 20:47 | PDOC ---
History of Present Illness - General Chief Complaint: Pain Stated Complaint: PAIN Time Seen by Provider: 08/07/18 20:33 - History of Present Illness Initial Comments: 27 year odl female with PMH of PMH recurring kidney stones (R lithotripsy with Dr. Beau Gan in 2013) presenting with left flank pain for the past 9 days with darkened urine. She was just AMA'd from our hospital 8 days ago after being admitted for a left 1.5 cm obstructing renal calculus and a UTI. She was given IV abx and IV pain medication with good resolution of pain and urinary symptoms until today where she noted left flank pain again. Denies fevers, chills, nausea , vomiting, diarrhea, chest pain, SOB, or other symptoms. 08/07/18 21:03 Past History - Past Medical History Allergies/Adverse Reactions: Allergies Allergy/AdvReac Type Severity Reaction Status Date / Time No Known Allergies Allergy Verified 08/07/18 20:13 Home Medications: Ambulatory Orders NK [No Known Home Medication] 07/30/18 Asthma: No Cancer: No Cardiac Disorders: No CVA: No COPD: No DVT: No Diabetes: No Disorders: Yes (renal stones) HTN: No Kidney Stones: Yes Seizures: No Thyroid Disease: No - Reproductive History Therapeutic (s) & number: Yes - Immunization History Immunization Up to Date: Yes - Suicide/Smoking/Psychosocial Hx Smoking History: Never smoked Have you smoked in the past 12 months: No Information on smoking cessation initiated: No Hx Alcohol Use: No Drug/Substance Use Hx: No Substance Use Type: None Hx Substance Use Treatment: No Review of Systems - Review of Systems Constitutional: No: Chills, Diaphoresis, Fever, Loss of Appetite HEENTM: No: Eye Pain, Blurred Vision Respiratory: No: Cough, Orthopnea, Shortness of Breath Cardiac (ROS): No: Chest Pain, Edema, Irregular Heart Rate ABD/GI: No: Diarrhea, Nausea, Vomiting : Yes: Burning, Dysuria, Frequency, Flank Pain, Pain. No: Discharge, Hematuria Musculoskeletal: No: Back Pain, Muscle Pain, Muscle Weakness Integumentary: No: Bruising, Flushing, Lesions Neurological: No: Headache, Numbness, Paresthesia, Tingling Psychiatric: No: Anxiety, Depression Endocrine: No: Intolerance to Cold, Intolerance to Heat Hematologic/Lymphatic: No: Anemia, Blood Clots, Easy Bleeding *Physical Exam - Vital Signs Last Vital Signs Temp Pulse Resp BP Pulse Ox 99.0 F 100 H 18 136/82 100 08/07/18 20:10 08/07/18 20:10 08/07/18 20:10 08/07/18 20:10 08/07/18 20:10 - Physical Exam General Appearance: Yes: Nourished, Appropriately Dressed. No: Apparent Distress HEENT: positive: EOMI, DEMI, Normal ENT Inspection, Normal Voice Neck: positive: Trachea midline, Normal Thyroid, Supple. negative: Tender, Rigid Respiratory/Chest: positive: Lungs Clear, Normal Breath Sounds. negative: Chest Tender, Respiratory Distress, Accessory Muscle Use Cardiovascular: positive: Regular Rhythm, Regular Rate Gastrointestinal/Abdominal: positive: Normal Bowel Sounds, Flat, Soft. negative : Tender Lymphatic: negative: Adenopathy, Tenderness Musculoskeletal: positive: Normal Inspection, CVA Tenderness (left sided) Extremity: positive: Normal Capillary Refill, Normal Inspection, Normal Range of Motion. negative: Tender Integumentary: positive: Normal Color, Dry, Warm Neurologic: positive: Fully Oriented, Alert, Normal Mood/Affect, Normal Response , Motor Strength 5/5 Moderate Sedation - Procedure Monitoring Vital Signs: Procedure Monitoring Vital Signs Temperature 99.0 F 08/07/18 20:10 Pulse Rate 100 H 08/07/18 20:10 Respiratory Rate 18 08/07/18 20:10 Blood Pressure 136/82 08/07/18 20:10 O2 Sat by Pulse Oximetry (%) 100 08/07/18 20:10 ED Treatment Course - LABORATORY CBC & Chemistry Diagram: 08/07/18 21:10 08/07/18 21:51 Medical Decision Making - Medical Decision Making 27 year old female with known 1.5 cm left renal pelvic stone 8 days ago and UTI with history of stones and UTIs presenting with worsening pain in the left flank after AMAing one week prior in the midst of IV abx and IV pain medication for the aforementioned nephrolith. This is likely the same cause of the pain. Her UA is demonstrating a repeat infection. Will treat with 1 G ceftriaxone IV. Pending repeat CT for nephrolith eval and likely admission. 08/07/18 22:[address] demonstating obstructing 1.8 cm nephrolith with worsneing hydronephrosis. Creatinine WNL. Discussed with hospitalist team and will admit for left sided obstructing nephrolith with Nida rivera also spoken with and he will see the patient tomorrow. 08/08/18 00:16 *DC/Admit/Observation/Transfer Diagnosis at time of Disposition: Nephrolith UTI (urinary tract infection) Qualifiers: Urinary tract infection type: acute cystitis Hematuria presence: with hematuria Qualified Code(s): N30.01 - Acute cystitis with hematuria Hydronephrosis Qualifiers: Hydronephrosis type: unspecified Qualified Code(s): N13.30 - Unspecified hydronephrosis - Discharge Dispostion Condition at time of disposition: Improved Decision to Admit order: Yes - Referrals - Patient Instructions - Post Discharge Activity
--- NOTE | 2018-08-07 20:48 | PDOC ---
Attending Attestation - HPI HPI: 08/07/18 21:20 The patient is a 27 year old female with a significant past medical of kidney stones who presents to the emergency department with left sided flank pain for several days. The patient reports that she was seen in the ED about 1 week ago for her kidney stones but, left AMA. She states that she was treated with IV antibiotics that relieve her symptoms. The patient reports that her pain has been worsening since she was last here which prompted her to come back to the ED. she denies any other symptoms. She denies any fever, chills, nausea, vomiting, diarrhea, constipation or urinary symptoms she denies any chest pain, shortness of breath, headache or dizziness. The patient denies any other complaints. Documentation prepared by Lazaro Urena, acting as medical library assistant for Jaki Guevara MD <Lazaro Urena - Last Filed: 08/07/18 21:20> - Resident Resident Name: Parminder John - ED Attending Attestation I have performed the following: I have examined & evaluated the patient, The case was reviewed & discussed with the resident, I agree w/resident's findings & plan - Physicial Exam PE: 08/07/18 23:27 Agree with resident physical exam - Medical Decision Making 08/07/18 23:28 27-year-old female with persistent left flank pain, patient was recently diagnosed with a left kidney stone and urinary tract infection but left AMA with suboptimal follow-up She returns today with worsening pain CT scan of the abdomen and pelvis was reviewed Urinalysis is consistent with urinary tract infection Unfortunately a urine culture was not sent on previous visit, culture was sent today Based on August 2017 urine culture sensitivities 1 g of Rocephin was given IV Toradol given for pain management Call placed to urology Plan for admission for IV antibiotics to medical service Impression kidney stone Urinary tract infection <Jaki Guevara - Last Filed: 08/07/18 23:31>
[2018-08-07] MEDS ORDERED: KETOROLAC TROMETHAMINE 15 MG/ML VIAL IVPUSH ONE (21:02)
[2018-08-07 21:17] LABS: HEMATOCRIT 35.4 % (32.4-45.2); HEMOGLOBIN 12.1 GM/dL (10.7-15.3); MCH 32.3 pg (25.7-33.7); MCHC 34.2 g/dl (32.0-36.0); MEAN CELL VOLUME 94.4 fl (80-96); MEAN PLT VOLUME 9.2 fl (7.5-11.1); PLATELET COUNT 361 K/MM3 (134-434); RBC 3.75 M/mm3 (3.60-5.2); RDW 12.8 % (11.6-15.6); WHITE BLOOD COUNT 11.1 K/mm3 (4.0-10.0)
[2018-08-07] MEDS ORDERED: KETOROLAC TROMETHAMINE 15 MG/ML VIAL ONE (21:21)
[2018-08-07 21:27] LABS: URINE APPEARANCE CLOUDY; URINE BILIRUBIN NEGATIVE (<2.0 mg/dL); URINE COLOR YELLOW; URINE GLUCOSE (UA) NEGATIVE (NEGATIVE); URINE KETONE NEGATIVE (NEGATIVE); URINE LEUK ESTERASE 2+ (NEGATIVE); URINE NITRITE NEGATIVE (NEGATIVE); URINE PROTEIN 2+ (NEGATIVE); URINE UROBILINOGEN NEGATIVE mg/dL (0.2-1.0)
[2018-08-07 21:28] LABS: HCG,QUALITATIVE URINE Negative
[2018-08-07 21:31] LABS: INR 1.1 (0.83-1.09)
[2018-08-07 21:40] LABS: EPI CELLS RARE /HPF (FEW); URINE MUCUS RARE
[2018-08-07 22:16] LABS: ALBUMIN 3.6 g/dl (3.4-5.0); ALK PHOS 52 U/L (45-117); ANION GAP 9 MMOL/L (8-16); BILIRUBIN,TOTAL 0.3 mg/dL (0.2-1); BLOOD UREA NITROGEN 13 mg/dL (7-18); CALCIUM 8.2 mg/dL (8.5-10.1); CHLORIDE 109 mmol/L (98-107); CO2 25 mmol/L (21-32); CREATININE 0.8 mg/dL (0.55-1.3); GLUCOSE,RANDOM 105 mg/dL (74-106); POTASSIUM 3.7 mmol/L (3.5-5.1); SGOT/AST 12 U/L (15-37); SGPT/ALT 22 U/L (13-61); SODIUM 143 mmol/L (136-145); TOT PROT 6.8 g/dl (6.4-8.2)
[2018-08-07] MEDS ORDERED: CEFTRIAXONE 1 GM/50 ML BAG ONE (22:21)
--- NOTE | 2018-08-08 00:18 | PN ---
Teaching Attending Note Name of Resident: Rachael Grimm ATTENDING PHYSICIAN STATEMENT I saw and evaluated the patient. I reviewed the resident's note and discussed the case with the resident. I agree with the resident's findings and plan as documented. SUBJECTIVE: Seen and examined with resident; please refer to their note for further historical information. In summation, patient is known to myself from 07/31 admission; she presents with L-sided flank pain and similar sx to last time. Hx renal stones 2012; repeat in 2013 when she had lithotripsy 2013 w/ Dr. Beau Lee. She left AMA from that admission to help take care of her minor children at home. She is hemodynamically stable. CT obtained in the ER shows worsening L-hydro with the known stone at the UPJ (1.8cm in max diameter). ER called urology who will see in AM. 10 sys ROS reviewed PMH/PSH reviewed; as per chart FH asked and noncontributory Social history reviewed; unchanged from prior visit. Medication list reviewed OBJECTIVE: NAD, AAO, resting comfortably in bed NC AT EOMI PERRLA RRR s1/2 no mgr Lungs CTAB w/ sym exp NT ND +BS L-flank pain to fist percussion extending to the CVA CN2-12 wnl, no fnd Labs show slight leukocytosis to 11; unremarkable chemistry and LFTs. UA reviewed; slightly improved compared to last visit (#WBC, nitrite, etc.) Micro reviewed from previous visit Prelim CT report with L-UPJ stone 1.8cm with moderate to marked L-hydro worsening since the last exam; punctate nonobstructing R-stone noted. No hydroureter b/l ASSESSMENT AND PLAN: Presents back after leaving AMA last week for L-hydronephrosis 2/2 stone with complicated UTI and dark urine; urology to see in the AM. 1) Complicated UTI -Complicated due to presence hydronephrosis with stone; urology has been contacted by ER and will see patient in AM. -leukocytosis noted; UA is convincing. Presence of recurring stones in the history, etc. noted. -Prior Cx results reviewed; shows clay Sn E. Coli and Klebsiella -Continue ceftriaxone 1g QD; followup blood and urine cultures; followup with urology consult. Appreciate their presence on the case. -Pain control with PRN Ultram and PRN APAP 2) L-Hydronephrosis 2/2 1.8cm stone L-UPJ -Management per urology in terms of stone -Continue tamsulosin FENA -LR@75cc/hr -PRN replete -NPO@MN until seen by urology -As tolerated DVT px: SCDs/Early Ambulation Full Code
[2018-08-08] MEDS ORDERED: KETOROLAC TROMETHAMINE 15 MG/ML VIAL IVPUSH PRN (00:20)
[2018-08-08] MEDS ORDERED: TAMSULOSIN HCL 0.4 MG CAP PO SCH ×2 (00:21→00:40)
--- NOTE | 2018-08-08 00:24 | HP ---
<Mary Jo Baxter - Last Filed: 08/08/18 05:28> CHIEF COMPLAINT: L flank pain PCP: HISTORY OF PRESENT ILLNESS: 27 y/o F with PMH recurrent nephrolithasis (R lithotripsy- Dr. Alva 2013), who presents to the ED with continued L flank pain over the last 9 days a/w dark urine. As per pt, she was initially admitted at [facility] 9 days ago for L 1.5cm renal calculus with complicated UTI. She had began tx with IV rocephin, however she states that left AMA because she has multiple young children and was unable to take care of them if she was in the hospital. Pt has returned today for tx since she has arranged for manager child in the interim. Since she had left AMA, she has continued to have crampy, L sided flank pain that is constant, 10/10 and a/w dark urine. Denies FREEMAN, fever, chills, dysuria, urinary frequency, or changes in bowel function. ER course was notable for: (1) L UPJ stone 1.8cm, mod-marked L hydro worsened from previous (2) rocephin 1g x1 (3) toradol 15mg IVP x 1 Recent Travel: denies PAST MEDICAL HISTORY: as above PAST SURGICAL HISTORY: R lithotripsy 2013- Dr. Alva Social History: has four children Smoking: denies Alcohol: denies Drugs: denies Family History: DM- mother's side. does not know father's health hx, or hx for his side of the family Allergies No Known Allergies Allergy (Verified 08/07/18 20:13) HOME MEDICATIONS: Home Medications Medication Instructions Recorded NK [No Known Home Medication] 07/30/18 confirmed with patient verbally REVIEW OF SYSTEMS CONSTITUTIONAL: Absent: fever, chills, diaphoresis, generalized weakness, malaise, loss of appetite, weight change HEENT: Absent: rhinorrhea, nasal congestion, throat pain, throat swelling, difficulty swallowing, mouth swelling, ear pain, eye pain, visual changes CARDIOVASCULAR: Absent: chest pain, syncope, palpitations, irregular heart rate, lightheadedness , peripheral edema RESPIRATORY: Absent: cough, shortness of breath, dyspnea with exertion, orthopnea, wheezing, stridor, hemoptysis GASTROINTESTINAL: Absent: abdominal pain, abdominal distension, nausea, vomiting, diarrhea, constipation, melena, hematochezia GENITOURINARY: +flank pain, dark urine Absent: dysuria, frequency, urgency, hesitancy, genital pain MUSCULOSKELETAL: Absent: myalgia, arthralgia, joint swelling, back pain, neck pain SKIN: Absent: rash, itching, pallor HEMATOLOGIC/IMMUNOLOGIC: Absent: easy bleeding, easy bruising, lymphadenopathy, frequent infections ENDOCRINE: Absent: unexplained weight gain, unexplained weight loss, heat intolerance, cold intolerance NEUROLOGIC: Absent: headache, focal weakness or paresthesias, dizziness, unsteady gait, seizure, mental status changes, bladder or bowel incontinence PSYCHIATRIC: Absent: anxiety, depression, suicidal or homicidal ideation, hallucinations. PHYSICAL EXAMINATION Vital Signs - 24 hr 08/07/18 20:10 Temperature 99.0 F Pulse Rate 100 H Respiratory 18 Rate Blood Pressure 136/82 O2 Sat by Pulse 100 Oximetry (%) GENERAL: Sitting up in bed. Awake, alert, and fully oriented, in no acute distress. HEAD: Normal with no signs of trauma. EYES: Pupils equal, round and reactive to light, extraocular movements intact, sclera anicteric, conjunctiva clear. EARS, NOSE, THROAT: Ears normal, nares patent, oropharynx clear without exudates. Moist mucous membranes. NECK: Normal range of motion, supple LUNGS: Breath sounds equal, clear to auscultation bilaterally. No wheezes, and no crackles. No accessory muscle use. HEART: Regular rate and rhythm, normal S1 and S2 without murmur, rub or gallop. ABDOMEN: Soft, nontender, not distended, normoactive bowel sounds, no guarding. +L flank pain - diffusely TTP with CVA tenderness. LOWER EXTREMITIES: 2+ pt pulses, warm, well-perfused. No edema. NEUROLOGICAL: Cranial nerves II-XII intact. Normal speech. 5/5 motor strength UE, LE. sensation intact PSYCHIATRIC: Cooperative. Good eye contact SKIN: Warm, dry, normal turgor Laboratory Tests 08/07/18 08/07/18 21:10 21:20 WBC 11.1 H Hgb 12.1 Hct 35.4 Plt Count 361 D Creatinine ALT Urine Protein 2+ H Urine Glucose (UA) Negative Urine Ketones Negative Urine Blood 3+ H Urine Nitrite Negative Urine Bilirubin Negative Urine Urobilinogen Negative Ur Leukocyte Esterase 2+ H Urine WBC (Auto) 302 Urine RBC (Auto) 766 Urine HCG, Qual Negative 08/07/18 21:51 Potassium BUN 13 Creatinine 0.8 AST 12 L ALT 22 Urine Glucose (UA) 08/07/18: CTAP w/o contrast: L UPJ junction stone measuring 1.8 cm in maximum dimension is again seen with moderate to marked L renal hydronephrosis that has worsened since the prior examination. punctate nonobstructing R renal lower pole stone again seen. no gross evidence of hydroureter or ureteral stone, bilaterally. 08/07/18: EKG: ordered, in case of pre-op clearance. pending ASSESSMENT/PLAN: 27 y/o F with PMH recurrent nephrolithasis (R lithotripsy- Dr. Alva 2013), who presents to the ED with continued L flank pain over the last 9 days a/w dark urine. #L nephrolithiasis 1.8cm UPJ stone, complicated UTI -a/w moderate to marked L renal hydronephrosis, worsened from previous exam 1 week ago -also currently with white ct, did not have previously. likely worsening infection/obstruction, afebrile with mild tachycardia. also with associated CARRILLO likely 2/2 obstructive etiology . -c/w rocephin 1g IVPB qd -f/u ucx, blood cx. has grown e.coli, klebsiella previously -urology consult: Dr. Alva. will see in AM as per ED -IV LR -toradol for pain - 15mg IVP q6h PRN -started on flomax 0.4mg PO qd to aid w/ flow -NPO in case of procedure in AM, coags, T+S, EKG #F/E/N IV LR 75 cc/hr continue to follow lytes NPO in case of lithotripsy in AM #PPX SCD's #Dispo admit to med-surg Visit type - Emergency Visit Emergency Visit: Yes ED Registration Date: 08/07/18 Care time: The patient presented to the Emergency Department on the above date and was hospitalized for further evaluation of their emergent condition. - New Patient This patient is new to me today: No - Critical Care Critical Care patient: No <Eric Denise - Last Filed: 08/25/18 02:12> Seen and examined with resident; agree with above aside from what is supplemented by myself in documentation
[2018-08-08] MEDS ORDERED: LACTATED RINGERS SOLUTION 1,000 ML/1,000 ML INFUS.BAG IV SCH (00:30)
[2018-08-08 04:41] VITALS: BMI 22.6
[2018-08-08] MEDS ORDERED: DEXTROSE 5%-LACTATED RINGERS 1,000 ML IV SCH (07:30)
[2018-08-08 07:55] LABS: BASO % 0.7 % (0-2.0); EOS % 1.1 % (0-4.5); HEMATOCRIT 31.9 % (32.4-45.2); HEMOGLOBIN 10.8 GM/dL (10.7-15.3); LYMPH % 35.7 % (8-40); MCH 31.9 pg (25.7-33.7); MCHC 33.9 g/dl (32.0-36.0); MEAN CELL VOLUME 94.1 fl (80-96); MONO % 5.8 % (3.8-10.2); NEUT % 56.7 % (42.8-82.8); PLATELET COUNT 299 K/MM3 (134-434); RBC 3.39 M/mm3 (3.60-5.2); RDW 12.8 % (11.6-15.6); WHITE BLOOD COUNT 8.8 K/mm3 (4.0-10.0)
[2018-08-08 08:05] LABS: ANION GAP 8 MMOL/L (8-16); BLOOD UREA NITROGEN 14 mg/dL (7-18); CALCIUM 8.3 mg/dL (8.5-10.1); CHLORIDE 110 mmol/L (98-107); CO2 24 mmol/L (21-32); CREATININE 0.5 mg/dL (0.55-1.3); GLUCOSE,RANDOM 85 mg/dL (74-106); PHOSPHOROUS 3.5 mg/dL (2.5-4.9); SODIUM 142 mmol/L (136-145)
[2018-08-08] MEDS ORDERED: CEFTRIAXONE 1 GM in DEXTROSE 5%-WATER - 50 ML IVPB SCH (10:00)
[2018-08-08] MEDS ORDERED: cefTRIAXone SODIUM 1 GM VIAL ONE (10:19)
[2018-08-08] MEDS ORDERED: DEXTROSE 5%-WATER - 50 ML IVPB ONE (10:19)
--- NOTE | 2018-08-08 13:53 | PN ---
Teaching Attending Note Name of Resident: Traci Vega ATTENDING PHYSICIAN STATEMENT I saw and evaluated the patient. I reviewed the resident's note and discussed the case with the resident. I agree with the resident's findings and plan as documented with exceptions below. SUBJECTIVE: Patient seen and examined. Still with left flank pain, eager to get out of the hospital. No new fevers/chills, nausea or vomiting. OBJECTIVE: Vital Signs Period Temp Pulse Resp BP Sys/Dukes Pulse Ox Last 24 Hr 98.2 F-99.0 F 54-100 16-18 98-136/48-82 100-100 Intake & Output 08/05/18 08/06/18 08/07/18 08/08/18 23:59 23:59 23:59 23:59 Intake Total 225 Balance 225 Weight 123 lb 11.2 oz General: sitting in bed in no acute distress Abdomen:Soft, left CVA tenderness Home Medications Medication Instructions Recorded NK [No Known Home Medication] 07/30/18 Active Medications Ceftriaxone Sodium 1 gm/ (Dextrose) 50 mls @ 100 mls/hr IVPB DAILY [facility] Last Admin: 08/08/18 10:22 Dose: 100 mls/hr Dextrose/Lactated Ringer's (D5-Lr -) 1,000 mls @ 125 mls/hr IV ASDIR [facility] Last Admin: 08/08/18 08:38 Dose: 125 mls/hr Ketorolac Tromethamine (Toradol Injection -) 15 mg IVPUSH Q6H PRN PRN Reason: PAIN LEVEL 7 - 10 Stop: 08/13/18 00:19 Last Admin: 08/08/18 00:38 Dose: 15 mg Tamsulosin HCl (Flomax -) 0.4 mg PO DAILY@0830 [facility] Last Admin: 08/08/18 08:37 Dose: 0.4 mg Laboratory Results - last 24 hr 08/07/18 08/07/18 08/07/18 21:10 21:10 21:10 WBC 11.1 H RBC 3.75 Hgb 12.1 Hct 35.4 MCV 94.4 MCH 32.3 MCHC 34.2 RDW 12.8 Plt Count 361 D MPV 9.2 Absolute Neuts (auto) Neutrophils % Lymphocytes % Monocytes % Eosinophils % Basophils % Nucleated RBC % PT with INR 13.00 INR 1.10 H Sodium Cancelled Potassium Cancelled Chloride Cancelled Carbon Dioxide Cancelled Anion Gap Cancelled BUN Cancelled Creatinine Cancelled Creat Clearance w eGFR Cancelled Random Glucose Cancelled Calcium Cancelled Phosphorus Magnesium Total Bilirubin Cancelled AST Cancelled ALT Cancelled Alkaline Phosphatase Cancelled Total Protein Cancelled Albumin Cancelled Urine Color Urine Appearance Urine pH Ur Specific [place] Urine Protein Urine Glucose (UA) Urine Ketones Urine Blood Urine Nitrite Urine Bilirubin Urine Urobilinogen Ur Leukocyte Esterase Urine WBC (Auto) Urine RBC (Auto) Ur Epithelial Cells Urine Mucus Urine HCG, Qual Blood Type Antibody Screen 08/07/18 08/07/18 08/08/18 21:20 21:51 07:00 WBC RBC Hgb Hct MCV MCH MCHC RDW Plt Count MPV Absolute Neuts (auto) Neutrophils % Lymphocytes % Monocytes % Eosinophils % Basophils % Nucleated RBC % PT with INR INR Sodium 143 Potassium 3.7 Chloride 109 H Carbon Dioxide 25 Anion Gap 9 BUN 13 Creatinine 0.8 Creat Clearance w eGFR > 60 Random Glucose 105 Calcium 8.2 L Phosphorus Magnesium Total Bilirubin 0.3 AST 12 L ALT 22 Alkaline Phosphatase 52 Total Protein 6.8 Albumin 3.6 Urine Color Yellow Urine Appearance Cloudy Urine pH 6.0 Ur Specific [place] 1.019 Urine Protein 2+ H Urine Glucose (UA) Negative Urine Ketones Negative Urine Blood 3+ H Urine Nitrite Negative Urine Bilirubin Negative Urine Urobilinogen Negative Ur Leukocyte Esterase 2+ H Urine WBC (Auto) 302 Urine RBC (Auto) 766 Ur Epithelial Cells Rare Urine Mucus Rare Urine HCG, Qual Negative Blood Type O POSITIVE Antibody Screen Negative 08/08/18 08/08/18 07:00 07:00 WBC 8.8 RBC 3.39 L Hgb 10.8 Hct 31.9 L MCV 94.1 MCH 31.9 MCHC 33.9 RDW 12.8 Plt Count 299 MPV 9.0 Absolute Neuts (auto) 5.0 Neutrophils % 56.7 D Lymphocytes % 35.7 D Monocytes % 5.8 Eosinophils % 1.1 Basophils % 0.7 Nucleated RBC % 0 PT with INR INR Sodium 142 Potassium 4.0 Chloride 110 H Carbon Dioxide 24 Anion Gap 8 BUN 14 Creatinine 0.5 L Creat Clearance w eGFR > 60 Random Glucose 85 Calcium 8.3 L Phosphorus 3.5 Magnesium 2.0 Total Bilirubin AST ALT Alkaline Phosphatase Total Protein Albumin Urine Color Urine Appearance Urine pH Ur Specific [place] Urine Protein Urine Glucose (UA) Urine Ketones Urine Blood Urine Nitrite Urine Bilirubin Urine Urobilinogen Ur Leukocyte Esterase Urine WBC (Auto) Urine RBC (Auto) Ur Epithelial Cells Urine Mucus Urine HCG, Qual Blood Type Antibody Screen CT A/P results reviewed ASSESSMENT AND PLAN: 27 yof with PMHX of nephrolithiasis, admitted with obstructive stone with hydronephrosis +/- complicated UTI -Left ureteral stone with hydronephrosis -Complicated UTI Plan: Discussed with Dr. Beau Lee, plan for OR today. NPO, increase IVF, pain control with toradol. Ceftriaxone day 2 Dispo d/c in 24 hours pending urology intervention if no concerns. Plan discussed with patient and nursing, all questions answered.
--- NOTE | 2018-08-08 16:33 | EKG ---
Test Reason : Blood Pressure : / mmHG Vent. Rate : 059 BPM Atrial Rate : 059 BPM P-R Int : 140 ms QRS Dur : 084 ms QT Int : 422 ms P-R-T Axes : 012 064 042 degrees QTc Int : 417 ms SINUS BRADYCARDIA Possible old inferior infarct. ABNORMAL ECG Confirmed by MD YA, JOSE ([id number]) on 08/08/2018 4:33:11 PM Referred By: Confirmed By:JOSE PANDYA MD
--- NOTE | 2018-08-08 16:40 | PN ---
Physical Exam: SUBJECTIVE: Patient seen and examined by me at bedside. Patient still complains of left flank pain Urology to follow up Otherwise, denies, fever, chills, nausea, vomiting, chest pain, palpitations, shortness of breath. OBJECTIVE: Vital Signs Period Temp Pulse Resp BP Sys/Dukes Pulse Ox Last 24 Hr 98.2 F-99.0 F 54-100 16-18 98-136/48-82 100-100 GENERAL: The patient is awake, alert, and fully oriented, in no acute distress. EYES: Sclera anicteric, conjunctiva clear. No ptosis. ENT: Orpharynx clear without exudates, moist mucous membranes. LUNGS: Breath sounds equal, clear to auscultation bilaterally, no wheezes, no crackles, no accessory muscle use. HEART: Regular rate and rhythm, normal S1 and S2, without murmur, rub or gallop. ABDOMEN: Soft, (+) Left flank pain with CVA tenderness, nondistended, normoactive bowel sound. EXTREMITIES: No edema. Laboratory Results 08/08/18 07:00 08/08/18 07:00 Active Medications Generic Name Dose Route Start Last Admin Trade Name Freq PRN Reason Stop Dose Admin Ceftriaxone Sodium 1 gm/ 50 mls @ 100 mls/hr 08/08/18 10:00 08/08/18 10:22 Dextrose IVPB 100 mls/hr DAILY AMEYA Administration Dextrose/Lactated Ringer's 1,000 mls @ 125 mls/hr 08/08/18 07:30 08/08/18 08: 38 D5-Lr - IV 125 mls/hr ASDIR AMEYA Administration Ketorolac Tromethamine 15 mg 08/08/18 00:20 08/08/18 00:38 Toradol Injection - IVPUSH 08/13/18 00:19 15 mg Q6H PRN Administration PAIN LEVEL 7 - 10 Tamsulosin HCl 0.4 mg 08/08/18 00:40 08/08/18 08:37 Flomax - PO 0.4 mg DAILY@0830 AMEYA Administration IMAGES: 08/07/18: CTAP w/o contrast: L UPJ junction stone measuring 1.8 cm in maximum dimension is again seen with moderate to marked L renal hydronephrosis that has worsened since the prior examination. punctate nonobstructing R renal lower pole stone again seen. no gross evidence of hydroureter or ureteral stone, bilaterally. ASSESSMENT/PLAN: Patient is a 27 year old female with a PMHx of Nephrolithiasis (R lithotripsy- Dr. Alva 2013) who presented with complaints of continuous Left flan pain for the past 1.5 week. Patient found to have Hydronephrosis and admitted for further monitoring and management. #Left Ureteral Stone with Hydronephrosis -Continue IV antibiotics with Ceftriaxone 1gm daily -Continue IV fluids with D5-LR @125mls/hr (Day #2) -Pain control with Ketorolac 15mg Q6H prn -Urine and blood cultures pending -Urology consult placed and plans to take patient to OR -Continue Flomax 0.4mg daily #F/E/N -D5/LR @125mls/hr -Electrolytes wnl -NPO until lithotripsy #Prophylaxis -SCD's for DVT -No GI indicated #Dispo -Full code admit to med-surg Visit type - Emergency Visit Emergency Visit: Yes ED Registration Date: 08/07/18 Care time: The patient presented to the Emergency Department on the above date and was hospitalized for further evaluation of their emergent condition. - New Patient This patient is new to me today: Yes Date on this admission: 08/08/18 - Critical Care Critical Care patient: No
[2018-08-08] MEDS ORDERED: ONDANSETRON 4 MG/2 ML VIAL IVPUSH PRN (18:30)
[2018-08-08] MEDS ORDERED: PROMETHAZINE HCL 25 MG/1 ML VIAL IVPUSH PRN ×2 (18:30→19:18)
[2018-08-08] MEDS ORDERED: oxyCODONE HCL 5 MG TABLET PO PRN (18:30)
[2018-08-08] MEDS ORDERED: LACTATED RINGERS SOLUTION 1,000 ML IV SCH (18:30)
[2018-08-08] MEDS ORDERED: PROPOFOL 20 ML ONE (18:36)
[2018-08-08] MEDS ORDERED: GENTAMICIN SO4 80 MG/2 ML VIAL ONE (18:43)
[2018-08-08] MEDS ORDERED: GENTAMICIN 80MG PREMIX BAG IVPB ONE (18:46)
[2018-08-08] MEDS ORDERED: DEXAMETHASONE SOD PHOSPHATE 4 MG/1 ML VIAL ONE (18:47)
[2018-08-08] MEDS ORDERED: KETOROLAC TROMETHAMINE 30 MG/1 ML VIAL ONE (18:50)
--- NOTE | 2018-08-08 18:58 | OP ---
Operative Note - Note: Operative Date: 08/08/18 Pre-Operative Diagnosis: left upj stone Operation: cystoscopy/left retrograde pyelogram and stent placement Post-Operative Diagnosis: Same as Pre-op Surgeon: Last Alva Anesthesia: General Drains & Tubes with Location: 01/06 left ureteral stent Operative Report Dictated: Yes
--- NOTE | 2018-08-08 20:14 | OP ---
DATE OF OPERATION: DATE OF DICTATION: 08/08/2018 PREOPERATIVE DIAGNOSIS: Left ureteropelvic junction stone. POSTOPERATIVE DIAGNOSIS: Left ureteropelvic junction stone. PROCEDURE: Cystoscopy, left retrograde pyelogram, left ureteral stent placement. ATTENDING: Last Lee MD ANESTHESIA: General. DESCRIPTION OF OPERATION: The patient was brought in the operating room due to an obstructing 1.8-cm left ureteropelvic junction stone with a urinary tract infection present. The patient was taken to the operating room, placed in supine position on the operating room table. Gentamicin was given preoperatively for surgical prophylaxis. At this point, the patient was placed in dorsal lithotomy position and prepped and draped in the usual sterile manner after anesthesia had been given. The patient was prepped and draped in the usual sterile manner. Cystoscopy was performed. The left ureteral orifice was identified. A retrograde pyelogram showed a high-grade hydronephrosis secondary to a 1.8-cm plus ureteropelvic junction stone. A wire was passed into the kidney under direct observation cystoscopically. A 6-Nepali 22-cm stent was then placed over the wire utilizing the Seldinger technique. No complications noted. The patient tolerated the procedure very well. Bao DE LA [id number]
[2018-08-08] MEDS: DEXTROSE 5%-LACTATED RINGERS 1,000 ML IV SCH ×2 (20:30→20:50)
[2018-08-08] MEDS: oxyCODONE HCL 5 MG TABLET PO PRN (20:48)
[2018-08-09] MEDS: oxyCODONE HCL 5 MG TABLET PO PRN ×2 (00:24→05:20)
[2018-08-09] MEDS ORDERED: ACETAMINOPHEN 325 MG TABLET (FP) PO ONE (00:32)
[2018-08-09] MEDS ORDERED: ACETAMINOPHEN 325 MG TABLET (FP) ONE (00:40)
[2018-08-09 06:40] LABS: BASO % 0.3 % (0-2.0); HEMATOCRIT 32.9 % (32.4-45.2); HEMOGLOBIN 11.1 GM/dL (10.7-15.3); LYMPH % 10.8 % (8-40); MCH 32.1 pg (25.7-33.7); MCHC 33.9 g/dl (32.0-36.0); MEAN CELL VOLUME 94.8 fl (80-96); MEAN PLT VOLUME 9.2 fl (7.5-11.1); MONO % 4.4 % (3.8-10.2); NEUT % 84.5 % (42.8-82.8); PLATELET COUNT 335 K/MM3 (134-434); RBC 3.47 M/mm3 (3.60-5.2); RDW 12.8 % (11.6-15.6); WHITE BLOOD COUNT 9.6 K/mm3 (4.0-10.0)
[2018-08-09 07:57] LABS: ANION GAP 10 MMOL/L (8-16); BLOOD UREA NITROGEN 12 mg/dL (7-18); CALCIUM 8.5 mg/dL (8.5-10.1); CHLORIDE 110 mmol/L (98-107); CO2 21 mmol/L (21-32); CREATININE 0.5 mg/dL (0.55-1.3); GLUCOSE,RANDOM 125 mg/dL (74-106); POTASSIUM 4.2 mmol/L (3.5-5.1); SODIUM 141 mmol/L (136-145)
--- NOTE | 2018-08-09 08:37 | PN ---
Progress Note (short form) - Note Progress Note: Anesthesia POD#1 S/P Cysto with Left Stent placement under GA VSS,no pain.no N/V Doing fine. Andreea Perez MD.
--- NOTE | 2018-08-09 08:46 | DS ---
Physical Exam: SUBJECTIVE: Patient seen and examined by me at bedside. No acute events overnight Patient S/P cystoscopy/left retrograde pyelogram and stent placement for left upj stone Patient offers no complaints and denies any pain Otherwise, denies any fever, chills, nausea OBJECTIVE: Vital Signs Period Temp Pulse Resp BP Sys/Dukes Pulse Ox Last 24 Hr 98.1 F-98.7 F 54-93 13-20 100-125/48-87 97-100 PHYSICAL EXAM GENERAL: The patient is awake, alert, and fully oriented, in no acute distress. EYES: Sclera anicteric, conjunctiva clear. No ptosis. ENT: Orpharynx clear without exudates, moist mucous membranes. LUNGS: Breath sounds equal, clear to auscultation bilaterally, no wheezes, no crackles, no accessory muscle use. HEART: Regular rate and rhythm, normal S1 and S2, without murmur, rub or gallop. ABDOMEN: Soft, (+) Left flank pain with CVA tenderness, nondistended, normoactive bowel sound. EXTREMITIES: No edema. LABS Laboratory Results - last 24 hr 08/08/18 08/09/18 08/09/18 07:00 05:30 05:30 WBC 9.6 RBC 3.47 L Hgb 11.1 Hct 32.9 MCV 94.8 MCH 32.1 MCHC 33.9 RDW 12.8 Plt Count 335 MPV 9.2 Absolute Neuts (auto) 8.1 H Neutrophils % 84.5 H D Lymphocytes % 10.8 D Monocytes % 4.4 Eosinophils % 0.0 D Basophils % 0.3 Nucleated RBC % 0 Sodium 141 Potassium 4.2 Chloride 110 H Carbon Dioxide 21 Anion Gap 10 BUN 12 Creatinine 0.5 L Creat Clearance w eGFR > 60 Random Glucose 125 H Calcium 8.5 Blood Type O POSITIVE Antibody Screen Negative Microbiology 08/07/18 21:20 Urine - Urine Clean Catch Urine Culture - Preliminary Group D Strep Or Entero Coccus 08/07/18 21:10 Blood - Peripheral Venous Blood Culture - Preliminary NO GROWTH OBTAINED AFTER 24 HOURS, INCUBATION TO CONTINUE FOR 4 DAYS. 08/07/18 21:10 Blood - Peripheral Venous Blood Culture - Preliminary NO GROWTH OBTAINED AFTER 24 HOURS, INCUBATION TO CONTINUE FOR 4 DAYS. IMAGES: CTAP w/o contrast: L UPJ junction stone measuring 1.8 cm in maximum dimension is again seen with moderate to marked L renal hydronephrosis that has worsened since the prior examination. punctate nonobstructing R renal lower pole stone again seen. no gross evidence of hydroureter or ureteral stone, bilaterally. PRE-HOSPITAL COURSE: Patient is a 27 year old female with a PMHx of Nephrolithiasis (R lithotripsy- Dr. Alva 2013) who presented with complaints of continuous Left flan pain for the past 1.5 week. Patient admitted for Complicated UTI 2/2 hydronephrosis with nephrolithiasis 07/30/18 but left AMA the following day. She returned on this hospital visit and was also have Hydronephrosis from a left UPJ junction stone measuring 1.8cm found on CT Abdomen. Patient then admitted for further monitoring and management. HOSPITAL COURSE: Throughout hospitalization, patient was seen by Urology and was placed IV antibiotic Ceftriaxone. She was then scheduled to have procedure for cystoscopy/ left retrograde pyelogram and stent placement by Urologist, Dr. Alva. Patient tolerated procedure well and was advised to follow up with Urologist within two weeks. She will be sent home with a prescription order for PO antibiotics. Patient medically cleared for discharge. Date of Admission:08/07/18 Date of Discharge: 08/09/18 Minutes to complete discharge: 45 Discharge Summary Reason For Visit: URINARY TRACT INFECTION, CALCULUS OF LEFT KIDNEY Current Active Problems Hydronephrosis (Acute) UTI (urinary tract infection) (Acute) Calculus of kidney (Chronic) Condition: Stable - Instructions Diet, Activity, Other Instructions: RECOMMENDATIONS: -You were seen here for a urinary infection due to a kidney stone. You had a procedure done to remove stone with a stent placed by the Urologist. You responded well to the procedure. -You may resume your regular activities and diet -Stay hydrated with plenty of water. -If you start to experience worsening flank pain, abdominal pain, persistent fevers, please return to the emergency department or call 911 FOLLOW UP: -You will need to follow up with the Urologist, Dr. Alva in two weeks. It is important to follow up so he can decide on when to have the stents removed. His information will be in the discharge packet. Call his office and make an appointment. -You will also need to follow up with your primary care physician within two weeks. MEDICATIONS: -You will be sent home with an antibiotic called Augmentin. You will be taking it for 7 days. Please pick it up from the pharmacy. You may start the antibiotics tomorrow (08/10/18). -You may take Tylenol over the counter for pain control. Do not exceed more than 3000mg a day. You may also alternate with Motrin, Aleve, or Advil. Referrals: Last Alva MD [Staff Physician] - Disposition: HOME - Home Medications Comprehensive Discharge Medication List: Ambulatory Orders Sulfamethoxazole/Trimethoprim [Bactrim Ds -] 1 tab PO BID #14 tablet 08/09/18 This patient is new to me today: Yes Date on this admission: 08/10/18 Emergency Visit: Yes ED Registration Date: 08/07/18 Care time: The patient presented to the Emergency Department on the above date and was hospitalized for further evaluation of their emergent condition. Critical Care patient: No - Discharge Referral Referred to [facility] No
[2018-08-09 09:12] VITALS: BP 109/55; PULSE 67; TEMP 98.6
[2018-08-09] MEDS ORDERED: cefTRIAXone SODIUM 1 GM VIAL ONE (09:16)
[2018-08-09] MEDS ORDERED: DEXTROSE 5%-WATER - 50 ML IVPB ONE (09:16)
[2018-08-09] MEDS ORDERED: CEFTRIAXONE 1 GM in DEXTROSE 5%-WATER - 50 ML IVPB SCH (10:00)
== END 2018-08-09 10:44 | disposition home or self-care (01) | DRG 463 ==
LOC: JER 19:51 → JERBED 23:23 → J6S 08-08 04:54
PROVIDERS: ADMIT Internal Medicine; ATTEND Internal Medicine
PROC: BT1FZZZ Fluoroscopy of Left Kidney, Ureter and Bladder (ICD-10-PCS; 2018-08-08)
PROC: 0T778DZ Dilation of Left Ureter with Intraluminal Device, Via Natural or Artificial Opening Endoscopic (ICD-10-PCS; principal; 2018-08-08 17:30)
DX: N13.6 Pyonephrosis (principal); N17.9 Acute kidney failure, unspecified; N20.1 Calculus of ureter; N39.0 Urinary tract infection, site not specified; R31.9 Hematuria, unspecified; R00.0 Tachycardia, unspecified; B96.29 Other Escherichia coli [E. coli] as the cause of diseases classified elsewhere; B96.1 Klebsiella pneumoniae [K. pneumoniae] as the cause of diseases classified elsewhere
CPT/HCPCS: 36415; 74176-TC; 76000-TC-FY; 80048; 80053; 81003; 81015; 83735; 84100; 84703; 85025; 85027; 85610; 86850; 86900; 86901; 87040; 87086; 87186; 93005; 93010; 94760; 99285-25

== ENCOUNTER 2018-08-13 09:59 | Emergency (ER) | payer OTHER ==
[2018-08-13 10:11] VITALS: TEMP 97.6; BMI 21.9
--- NOTE | 2018-08-13 10:22 | PDOC ---
History of Present Illness - General Chief Complaint: Pain Stated Complaint: ABD PAIN/ LTS SIDE PAIN Time Seen by Provider: 08/13/18 10:18 History Source: Patient Exam Limitations: No Limitations - History of Present Illness Travel History: No Initial Comments: 08/13/18 10:33 27y F hx of recent L stent placement s/p nephrolithiasis cb UTI presents with complaint of worsening L flank pain. Pt had stent placement for 1.8cm stone on and was dc on 08/09 and was doing well until ysterday when the pain came back. The pt endorses severe cramping pain in the LLQ radiating to the L flank, associated multiple episodes of nbnb vomiting. pt endorses dark colored urine starting today. Denies any dysuria,fever/chills, diarrhea, cp, sob. Uro: [place] Past History - Past Medical History Allergies/Adverse Reactions: Allergies Allergy/AdvReac Type Severity Reaction Status Date / Time No Known Allergies Allergy Verified 08/07/18 20:13 Home Medications: Ambulatory Orders Oxycodone HCl/Acetaminophen [Percocet 5-325 mg Tablet -] 1 combo PO Q6H PRN #10 tablet MDD 4 08/13/18 Anemia: Yes Asthma: No Cancer: No Cardiac Disorders: No CVA: No COPD: No CHF: No DVT: No Diabetes: No Disorders: Yes (renal stones) HTN: No Kidney Stones: Yes Seizures: No Thyroid Disease: No - Reproductive History Therapeutic (s) & number: Yes - Immunization History Immunization Up to Date: Yes - Suicide/Smoking/Psychosocial Hx Smoking History: Never smoked Have you smoked in the past 12 months: No Information on smoking cessation initiated: No Hx Alcohol Use: No Drug/Substance Use Hx: No Substance Use Type: None Hx Substance Use Treatment: No Review of Systems - Review of Systems Able to Perform ROS?: Yes Comments:: 08/13/18 10:42 Constitutional - no reported Fever, Chills, HEENT: no reported vision changes, sore throat Respiratory: no reported cough, sob, hemoptysis Cardiac: no reported chest pain, palpitations, light headedness, leg swelling Abd/GI: +abd pain, nausea, vomiting, no reported blood per rectum, melena, diarrhea : no reported dysuria, frequency, discharge Musculskelatal - no reported back pain, joint swelling skin - no reported bruising, erythema, rash neurological: no reported headache, numbness, focal weakness, tingling, ataxia, hematologic: no reported easy bruising, easy bleeding *Physical Exam - Vital Signs Last Vital Signs Temp Pulse Resp BP Pulse Ox 97.6 F 75 18 134/57 L 100 08/13/18 10:07 08/13/18 10:07 08/13/18 10:07 08/13/18 10:07 08/13/18 10:07 - Physical Exam Comments: 08/13/18 10:43 GENERAL: The patient is awake, alert, and fully oriented, tearful HEAD: Normocephalic, atraumatic. EYES: extraocular movements intact, sclera anicteric, conjunctiva clear. ENT: Normal voice, Moist mucous membranes. NECK: Normal range of motion, supple LUNGS: Breath sounds equal, clear to auscultation bilaterally. No wheezes, no rhonchi, no rales. HEART: Regular rate and rhythm, normal S1 and S2 without murmur, rub or gallop. ABDOMEN: Soft, nontender, No guarding, no rebound. L CVA tenderness EXTREMITIES: Normal range of motion, no NEUROLOGICAL: No facial assymetry, Normal speech, moving all 4 extremities spontneously and symmetrically PSYCH: Normal mood, normal affect. SKIN: Warm, Dry, normal turgor, Moderate Sedation - Procedure Monitoring Vital Signs: Procedure Monitoring Vital Signs Temperature 97.6 F 08/13/18 10:07 Pulse Rate 75 08/13/18 10:07 Respiratory Rate 18 08/13/18 10:07 Blood Pressure 134/57 L 08/13/18 10:07 O2 Sat by Pulse Oximetry (%) 100 08/13/18 10:07 ED Treatment Course - LABORATORY CBC & Chemistry Diagram: 08/13/18 10:28 08/13/18 10:28 Medical Decision Making - Medical Decision Making - -08/13/18 10:55 27y F with recent stent placement presents for worsening L flank pain w nausea w /o fevers on exam pt is tearful and appears to be uncomfortable will ck labs, cr, ua US vs CT for further imaging (although pt has had 2 CTs within the past week) will casey mcmullen 08/13/18 11:31 pts feeling better pain controlled labs reviewed 08/13/18 11:[address] mcmullen [phone]) would not recommend any imaging at this time, US would not be helpful as there is likely residual hydro from chronic kidney stone would r/o UTI and try to controlher pain 08/13/18 12:26 pts UA resulted with improved wbc count, +hematuria but is probably normal sp orocedure pt still in significant amount of pain will obtain ct of abd to eval for stent complacation 08/13/18 14:[address] reviewed noted with stone in L renal pelvis stent in place pt feeling improved will dc with ouatpeitnt management and to continue her abx return precautions were discussed I discussed the physical exam findings, ancillary test results and final diagnoses with the patient. I answered all of the patient's questions. The patient was satisfied with the care received and felt comfortable with the discharge plan and treatment plan. The patient will call their primary care physician within 24 hours to arrange follow-up and will return to the Emergency Department with any new, persistent or worsening symptoms. *DC/Admit/Observation/Transfer Diagnosis at time of Disposition: Left nephrolithiasis - Discharge Dispostion Disposition: HOME Condition at time of disposition: Improved Decision to Admit order: No - Referrals Referrals: Last Alva MD [Staff Physician] - - Patient Instructions Printed Discharge Instructions: DI for Kidney Stones Additional Instructions: Return to the emergency department immediately with ANY new, persistent or worsening symptoms including worwsening pain, fevers, persistent vomiting or other concerns. You MUST call and follow up with your doctor next week for further evaluation of your symptoms. Results were discussed with you. Please make sure your doctor reviews the results of your emergency evaluation. Print Language: MOHAWK - Post Discharge Activity
[2018-08-13] MEDS ORDERED: morphine CARPU-JECT 4 MG/1 ML DISP.SYRIN IVPUSH ONE (10:26)
[2018-08-13] MEDS ORDERED: SODIUM CHLORIDE 1,000 ML IV ONE (10:26)
[2018-08-13] MEDS ORDERED: morphine SULFATE 4 MG/ML VIAL ONE (10:40)
[2018-08-13 10:46] LABS: BASO % 0.5 % (0-2.0); EOS % 0.5 % (0-4.5); HEMATOCRIT 37.1 % (32.4-45.2); HEMOGLOBIN 12.9 GM/dL (10.7-15.3); LYMPH % 8.8 % (8-40); MCH 32.8 pg (25.7-33.7); MCHC 34.9 g/dl (32.0-36.0); MEAN CELL VOLUME 93.9 fl (80-96); MEAN PLT VOLUME 8.7 fl (7.5-11.1); MONO % 3.1 % (3.8-10.2); NEUT % 87.1 % (42.8-82.8); PLATELET COUNT 400 K/MM3 (134-434); RBC 3.95 M/mm3 (3.60-5.2); RDW 13.1 % (11.6-15.6); WHITE BLOOD COUNT 16.3 K/mm3 (4.0-10.0)
[2018-08-13 10:52] LABS: HCG,QUALITATIVE URINE Negative
[2018-08-13 11:05] LABS: ALBUMIN 4.5 g/dl (3.4-5.0); ALK PHOS 61 U/L (45-117); ANION GAP 8 MMOL/L (8-16); BILIRUBIN,TOTAL 0.2 mg/dL (0.2-1); BLOOD UREA NITROGEN 21 mg/dL (7-18); CALCIUM 9.1 mg/dL (8.5-10.1); CHLORIDE 107 mmol/L (98-107); CO2 26 mmol/L (21-32); CREATININE 0.7 mg/dL (0.55-1.3); GLUCOSE,RANDOM 105 mg/dL (74-106); POTASSIUM 4.4 mmol/L (3.5-5.1); SGOT/AST 13 U/L (15-37); SGPT/ALT 21 U/L (13-61); SODIUM 141 mmol/L (136-145); TOT PROT 8.2 g/dl (6.4-8.2)
[2018-08-13 11:40] LABS: URINE APPEARANCE CLOUDY; URINE BILIRUBIN NEGATIVE (<2.0 mg/dL); URINE COLOR RED; URINE GLUCOSE (UA) NEGATIVE (NEGATIVE); URINE KETONE NEGATIVE (NEGATIVE); URINE LEUK ESTERASE 1+ (NEGATIVE); URINE NITRITE NEGATIVE (NEGATIVE); URINE PROTEIN 2+ (NEGATIVE); URINE UROBILINOGEN NEGATIVE mg/dL (0.2-1.0)
[2018-08-13 11:48] LABS: CALCIUM OXALATE CRYSTALS RARE /hpf (NONE SEEN); EPI CELLS RARE /HPF (FEW); URINE BACTERIA RARE /hpf (NONE SEEN); URINE MUCUS RARE
[2018-08-13] MEDS ORDERED: morphine CARPU-JECT 2 MG/1 ML DISP.SYRIN IVPUSH ONE (12:26)
[2018-08-13] MEDS ORDERED: MORPHINE SULFATE 2 MG/ML VIAL ONE (12:33)
[2018-08-13 15:05] VITALS: BP 120/79; PULSE 63
== END 2018-08-13 15:15 | disposition home or self-care (01) ==
LOC: JER 09:59
PROC: 3E033NZ Introduction of Analgesics, Hypnotics, Sedatives into Peripheral Vein, Percutaneous Approach (ICD-10-PCS; principal; 2018-08-13)
DX: N20.0 Calculus of kidney (principal); Z87.442 Personal history of urinary calculi; Z96.0 Presence of urogenital implants
CPT/HCPCS: 36415; 74176-TC; 80053; 81003; 81015; 84703; 85025; 87086; 96374; 96376; 99283-25; J7030

== ENCOUNTER 2018-09-11 14:59 | Day surgery (SDC) | payer OTHER ==
[2018-09-08 09:52] VITALS: BMI 21.9
[2018-09-11] MEDS ORDERED: oxyCODONE HCL 5 MG TABLET PO PRN ×3 (15:03→15:44)
[2018-09-11] MEDS ORDERED: ONDANSETRON 4 MG/2 ML VIAL IVPUSH PRN ×2 (15:03→17:35)
[2018-09-11] MEDS ORDERED: PROPOFOL 20 ML ONE (15:20)
[2018-09-11] MEDS ORDERED: MIDAZOLAM HCL 2 MG/2 ML SINGLE DOSE VIAL ONE ×2 (16:20)
--- NOTE | 2018-09-11 17:02 | OP ---
Operative Note - Note: Operative Date: 09/11/18 Pre-Operative Diagnosis: Left renal stone Operation: Left ESWL Findings: 20 mm pelvis stone Left Post-Operative Diagnosis: Same as Pre-op Surgeon: Last Alva Anesthesia: Fractional Estimated Blood Loss (mls): 0 Drains & Tubes with Location: JJ stent Left Operative Report Dictated: Yes
[2018-09-11] MEDS ORDERED: LACTATED RINGERS SOLUTION 1,000 ML IV SCH (17:45)
[2018-09-11 19:08] VITALS: TEMP 98.3
[2018-09-11] MEDS ORDERED: oxyCODONE HCL 5 MG TABLET PO ONE (19:50)
[2018-09-11] MEDS ORDERED: oxyCODONE HCL 5 MG TABLET ONE (19:54)
[2018-09-11 20:07] VITALS: BP 130/80; PULSE 57
--- NOTE | 2018-09-12 08:26 | OP ---
DATE OF OPERATION: 09/11/2018 PREOPERATIVE DIAGNOSIS: Left renal stone. POSTOPERATIVE DIAGNOSIS: Left renal stone. PROCEDURE: Left extracorporeal shock wave lithotripsy. ATTENDING: Michael Coombs MD ANESTHESIA: Fractional. DESCRIPTION OF OPERATION: Patient was brought in the operating room, placed in supine position on the operating room table. Ultrasonography and fluoroscopy were performed. A 20-mm stone in the renal pelvis was identified. Anesthesia and preoperative antibiotics were then administered; 3000 impulses at 20 joules of power were administered to the stone with excellent fragmentation noted under real-time ultrasonography and fluoroscopy. No complications were noted. The disposition of the patient was to the recovery room. MICHAEL COOMBS M.D. /[id number]
== END 2018-09-11 19:55 | disposition home or self-care (01) ==
LOC: JASU-SURG 14:59
PROVIDERS: ATTEND Urology
PROC: 0TF4XZZ Fragmentation in Left Kidney Pelvis, External Approach (ICD-10-PCS; principal; 2018-09-11 16:15)
DX: N20.0 Calculus of kidney (principal)
CPT/HCPCS: 84703; 94760

== ENCOUNTER 2019-03-13 11:25 | Inpatient (IN) | payer OTHER ==
[2019-03-13 11:30] VITALS: BMI 22.8
--- NOTE | 2019-03-13 12:07 | PDOC ---
History of Present Illness - General Chief Complaint: Pain, Acute Stated Complaint: FLANK PAIN/URINARY PROBLEM Time Seen by Provider: 03/13/19 11:43 History Source: Patient - History of Present Illness Timing/Duration: reports: getting worse Quality: reports: severe Abdominal Pain Onset Location: reports: flank Pain Radiation: reports: groin Past History - Past Medical History Allergies/Adverse Reactions: Allergies Allergy/AdvReac Type Severity Reaction Status Date / Time No Known Allergies Allergy Verified 03/13/19 11:29 Home Medications: Ambulatory Orders NK [No Known Home Medication] 09/08/18 Anemia: Yes Asthma: No Cancer: No Cardiac Disorders: No CVA: No COPD: No CHF: No DVT: No Dementia: No Diabetes: No GI Disorders: No Disorders: Yes (renal stones) HTN: No Hypercholesterolemia: No Kidney Stones: Yes Liver Disease: No Seizures: No Thyroid Disease: No - Reproductive History Therapeutic (s) & number: Yes - Immunization History Immunization Up to Date: Yes - Suicide/Smoking/Psychosocial Hx Smoking History: Never smoked Have you smoked in the past 12 months: No Hx Alcohol Use: Yes (socially) Drug/Substance Use Hx: No Substance Use Type: Alcohol Hx Substance Use Treatment: No Review of Systems - Review of Systems Constitutional: No: Chills, Fever ABD/GI: Yes: Nausea, Vomiting. No: Blood Streaked Bowels, Constipated, Diarrhea : Yes: Dysuria, Flank Pain. No: Discharge, Frequency, Hematuria *Physical Exam - Vital Signs Last Vital Signs Temp Pulse Resp BP Pulse Ox 99.0 F 91 H 18 147/85 99 03/13/19 11:27 03/13/19 11:27 03/13/19 11:27 03/13/19 11:27 03/13/19 11:27 - Physical Exam General Appearance: Yes: Appropriately Dressed, Severe Distress HEENT: positive: Normal Voice Neck: positive: Supple Respiratory/Chest: negative: Respiratory Distress Gastrointestinal/Abdominal: positive: Normal Bowel Sounds, Tender (poorly localized ttp to L abd), Soft. negative: Distended, Guarding, Rebound Musculoskeletal: positive: CVA Tenderness (L) Integumentary: positive: Dry, Warm Neurologic: positive: Fully Oriented, Alert, Normal Mood/Affect ED Treatment Course - LABORATORY CBC & Chemistry Diagram: 03/13/19 12:06 03/13/19 12:06 Medical Decision Making - Medical Decision Making 03/13/19 12:07 28 yo F, h/o renal stones, s/p multiple lithotripsies, s/p stent placement to L side by Dr Alva 08/05 (not yet removed for unclear reasons), here with sudden onset L flank pain radiating to groin with nausea, vomiting since last night, similar to pt's kidney stones. Possible dysuria. No hematuria, fever or chills See exam L renal colic Recurrent Stent currently in place from 08/05 -pain control -zofran -IVF -labs -CT 03/13/19 15:21 Leukocytosis to [address] read as L double-J tube in normal anatomic position with interval thickening of ureter suggestive of urethritis. There is mild to moderate hydronephrosis with multiple non-obstructive stones, largest 9mm. Discussed with Dr Benitez of urology who recommends starting IV abx ( prior ucx reviewed). wants pre-op labs as plan to remove stent while hospitalized 03/13/19 15:45 *DC/Admit/Observation/Transfer Diagnosis at time of Disposition: Renal stone Hydronephrosis Qualifiers: Hydronephrosis type: unspecified Qualified Code(s): N13.30 - Unspecified hydronephrosis UTI (urinary tract infection) Qualifiers: Urinary tract infection type: site unspecified Hematuria presence: without hematuria Qualified Code(s): N39.0 - Urinary tract infection, site not specified - Discharge Dispostion Condition at time of disposition: Fair Decision to Admit order: Yes - Referrals Referrals: Carolynn Wu [Primary Care Provider] - - Patient Instructions - Post Discharge Activity
[2019-03-13] MEDS ORDERED: KETOROLAC TROMETHAMINE 30 MG/1 ML VIAL IVPUSH ONE (12:08)
[2019-03-13] MEDS ORDERED: ONDANSETRON 4 MG/2 ML VIAL IVPUSH ONE ×2 (12:08→18:50)
[2019-03-13] MEDS ORDERED: SODIUM CHLORIDE 1,000 ML IV STA ×2 (12:08→15:21)
[2019-03-13] MEDS ORDERED: ONDANSETRON 4 MG/2 ML VIAL ONE (12:18)
[2019-03-13] MEDS ORDERED: KETOROLAC TROMETHAMINE 30 MG/1 ML VIAL ONE (12:18)
[2019-03-13 12:50] LABS: BASO % 0.2 % (0-2.0); HEMATOCRIT 37.4 % (32.4-45.2); HEMOGLOBIN 12.4 GM/dL (10.7-15.3); LYMPH % 3.5 % (8-40); MCH 30.5 pg (25.7-33.7); MCHC 33.2 g/dl (32.0-36.0); MEAN CELL VOLUME 91.8 fl (80-96); MEAN PLT VOLUME 9.5 fl (7.5-11.1); MONO % 7.4 % (3.8-10.2); NEUT % 88.9 % (42.8-82.8); PLATELET COUNT 364 K/MM3 (134-434); RBC 4.07 M/mm3 (3.60-5.2); RDW 13.5 % (11.6-15.6); WHITE BLOOD COUNT 21.6 K/mm3 (4.0-10.0)
[2019-03-13 13:16] LABS: BILIRUBIN,TOTAL 1.1 mg/dL (0.2-1); BLOOD UREA NITROGEN 11.7 mg/dL (7-18); CALCIUM 9.5 mg/dL (8.5-10.1); CREATININE 0.6 mg/dL (0.55-1.3); POTASSIUM 3.6 mmol/L (3.5-5.1); TOT PROT 8.5 g/dl (6.4-8.2)
[2019-03-13 14:59] LABS: EPI CELLS 13.3 /HPF (0-5/HPF); HYALINE CASTS 47 /lpf (0-8); PH,URINE 7.5 (5.0-8.0); URINE APPEARANCE TURBID; URINE BACTERIA 4131.7 /hpf (NEGATIVE); URINE BILIRUBIN NEGATIVE (NEGATIVE); URINE COLOR YELLOW; URINE GLUCOSE (UA) NEGATIVE (NEGATIVE); URINE KETONE 2+ (NEGATIVE); URINE LEUK ESTERASE 3+ (NEGATIVE); URINE NITRITE POSITIVE (NEGATIVE); URINE PROTEIN 1+ (NEGATIVE); URINE RBC 21 /hpf (0-4); URINE UROBILINOGEN 0.2 mg/dL (0.2-1.0); URINE WBC 301 /hpf (0-5)
[2019-03-13] MEDS ORDERED: CEFTRIAXONE 1 GM/50 ML BAG ONE (15:25)
[2019-03-13 15:37] LABS: ANISOCYTOSIS 0; MACROCYTOSIS 0; PLATELET ESTIMATE NORMAL
[2019-03-13] MEDS ORDERED: morphine CARPU-JECT 4 MG/1 ML DISP.SYRIN IVPUSH ONE (15:54)
[2019-03-13] MEDS ORDERED: MORPHINE SULFATE 2 MG/ML VIAL ONE (15:59)
[2019-03-13] MEDS ORDERED: CEFTRIAXONE 1 GM in DEXTROSE 5%-WATER - 100 ML IVPB ONE (16:23)
--- NOTE | 2019-03-13 16:47 | HP ---
CHIEF COMPLAINT: Flank pain PCP: HISTORY OF PRESENT ILLNESS: Patient is a 28 year old female with history of nephrolithiasis (s/p lithotripsy with stent placement with Barbara Lee in 2013, and again in 2018) presents with complaint of left flank pain. Pain began yesterday evening, patient attempted three extra strength Tylenol which was not palliative. Pain is sharp, radiating down the flank and anteriorly to her pelvis. She endorses subjective fevers, chills, nausea, for episodes non bloody, vomiting, dysuria, with foul smelling urine. Denies hematuria, urinary urgency, or frequency. She states that her last urinary tract infection was one month ago, treated with unknown antibiotic. Patient admits that she had been following up with Dr. Renuka Lee, however has not yet had left sided stent removed. ER course was notable for: (1) WBC 21.6, however afebrile (2) CT A/P reveals left ureteral stent with moderate- marked hydronephrosis, non obstructing stone (9mm), ureteritis. (3) UA- turbid, with blood, positive nitrites, 2 blood, 3+ leukocyte esterase Recent Travel: Denies PAST MEDICAL HISTORY: Nephrolithiasis PAST SURGICAL HISTORY: Lithotripsy, stent placement 2013 left sided renal stent placement 2018 Social History: Smoking: Denies Alcohol: Denies Drugs: Denies Patient has 4 children. Lives at home with children's father. Works as health aide. Family History: Mother: diabetes mellitus Father: patient unable to provide Allergies No Known Allergies Allergy (Verified 03/13/19 11:29) HOME MEDICATIONS: Home Medications Medication Instructions Recorded NK [No Known Home Medication] 09/08/18 REVIEW OF SYSTEMS CONSTITUTIONAL: Admits: fevers, chills Absent: diaphoresis, generalized weakness, malaise, loss of appetite, weight change HEENT: Absent: rhinorrhea, nasal congestion, throat pain, throat swelling, difficulty swallowing, mouth swelling, ear pain, eye pain, visual changes CARDIOVASCULAR: Absent: chest pain, syncope, palpitations, irregular heart rate, lightheadedness , peripheral edema RESPIRATORY: Absent: cough, shortness of breath, dyspnea with exertion, orthopnea, wheezing, stridor, hemoptysis GASTROINTESTINAL: Admits: abdominal clay, nausea, vomiting. Absent: abdominal distension, diarrhea , constipation, melena, hematochezia GENITOURINARY: Admits: dysuria, flank pain. Absent: frequency, urgency, hesitancy, hematuria, genital pain MUSCULOSKELETAL: Absent: myalgia, arthralgia, joint swelling, back pain, neck pain SKIN: Absent: rash, itching, pallor HEMATOLOGIC/IMMUNOLOGIC: Absent: easy bleeding, easy bruising, lymphadenopathy, frequent infections ENDOCRINE: Absent: unexplained weight gain, unexplained weight loss, heat intolerance, cold intolerance NEUROLOGIC: Absent: headache, focal weakness or paresthesias, dizziness, unsteady gait, seizure, mental status changes, bladder or bowel incontinence PSYCHIATRIC: Absent: anxiety, depression, suicidal or homicidal ideation, hallucinations. PHYSICAL EXAMINATION Vital Signs - 24 hr 03/13/19 03/13/19 11:27 16:02 Temperature 99.0 F 98.8 F Pulse Rate 91 H Pulse Rate [ 98 H Left Superficial Temporal] Respiratory 18 Rate Blood Pressure 147/85 Blood Pressure 114/61 [Right Arm] O2 Sat by Pulse 99 98 Oximetry (%) GENERAL: Patient is awake, alert, and fully oriented, in mild distress. HEAD: Normocephalic, atraumatic EYES: Pupils equal, round and reactive to light, extraocular movements intact, sclera anicteric, conjunctiva clear. EARS, NOSE, THROAT: Oropharynx clear without exudates. Moist mucous membranes. NECK: Normal range of motion, supple without lymphadenopathy. LUNGS: Breath sounds equal, clear to auscultation bilaterally. No wheezes, and no crackles. No accessory muscle use. HEART: Regular rate and rhythm, normal S1 and S2 without murmur, rub or gallop. ABDOMEN: Soft, nontender to light or deep palpation x4 quadrants, not distended. Normoactive bowel sounds x4 quadrants. No guarding, no rebound tenderness. No hepatomegaly appreciated. MUSCULOSKELETAL: Normal range of motion at all joints. Positive left sided CVA tenderness. EXTREMITIES: 2+ radial, dorsalis pedis pulses bilaterally, warm, well-perfused. No peripheral edema bilateral lower extremities. NEUROLOGICAL: Cranial nerves II-XII intact. Normal speech. Normal gait. PSYCHIATRIC: Cooperative. Good eye contact. Appropriate mood and affect. SKIN: Warm, dry. Laboratory Results - last 24 hr 03/13/19 03/13/19 03/13/19 12:06 12:06 12:06 WBC 21.6 H RBC 4.07 Hgb 12.4 Hct 37.4 MCV 91.8 MCH 30.5 MCHC 33.2 RDW 13.5 Plt Count 364 MPV 9.5 Absolute Neuts (auto) 19.2 H Neutrophils % 88.9 H Neutrophils % (Manual) 83.8 H Band Neutrophils % 2.0 Lymphocytes % 3.5 L D Lymphocytes % (Manual) 5.1 L Monocytes % 7.4 D Monocytes % (Manual) 7 Eosinophils % 0.0 D Eosinophils % (Manual) 0.0 Basophils % 0.2 Basophils % (Manual) 1.0 Myelocytes % (Man) 0 Promyelocytes % (Man) 0 Blast Cells % (Manual) 0 Nucleated RBC % 0 Metamyelocytes 0 Hypochromia 0 Platelet Estimate Normal Platelet Comment Present Polychromasia 0 Poikilocytosis 0 Anisocytosis 0 Microcytosis 0 Macrocytosis 0 Sodium 136 Potassium 3.6 Chloride 101 Carbon Dioxide 25 Anion Gap 10 BUN 11.7 Creatinine 0.6 Est GFR (CKD-EPI)AfAm 143.77 Est GFR (CKD-EPI)NonAf 124.04 Random Glucose 92 Calcium 9.5 Total Bilirubin 1.1 H AST 19 ALT 16 Alkaline Phosphatase 77 Total Protein 8.5 H Albumin 4.0 Serum , Qual Negative Urine Color Urine Appearance Urine pH Ur Specific [place] Urine Protein Urine Glucose (UA) Urine Ketones Urine Blood Urine Nitrite Urine Bilirubin Urine Urobilinogen Ur Leukocyte Esterase Urine WBC (Auto) Urine RBC (Auto) Urine Casts (Auto) U Epithel Cells (Auto) Urine Bacteria (Auto) Urine HCG, Qual 03/13/19 03/13/19 13:45 13:45 WBC RBC Hgb Hct MCV MCH MCHC RDW Plt Count MPV Absolute Neuts (auto) Neutrophils % Neutrophils % (Manual) Band Neutrophils % Lymphocytes % Lymphocytes % (Manual) Monocytes % Monocytes % (Manual) Eosinophils % Eosinophils % (Manual) Basophils % Basophils % (Manual) Myelocytes % (Man) Promyelocytes % (Man) Blast Cells % (Manual) Nucleated RBC % Metamyelocytes Hypochromia Platelet Estimate Platelet Comment Polychromasia Poikilocytosis Anisocytosis Microcytosis Macrocytosis Sodium Potassium Chloride Carbon Dioxide Anion Gap BUN Creatinine Est GFR (CKD-EPI)AfAm Est GFR (CKD-EPI)NonAf Random Glucose Calcium Total Bilirubin AST ALT Alkaline Phosphatase Total Protein Albumin Serum , Qual Urine Color Yellow Urine Appearance Turbid Urine pH 7.5 D Ur Specific [place] 1.015 Urine Protein 1+ H Urine Glucose (UA) Negative Urine Ketones 2+ H Urine Blood 2+ H Urine Nitrite Positive H Urine Bilirubin Negative Urine Urobilinogen 0.2 Ur Leukocyte Esterase 3+ H Urine WBC (Auto) 301 Urine RBC (Auto) 21 Urine Casts (Auto) 47 U Epithel Cells (Auto) 13.3 Urine Bacteria (Auto) 4131.7 Urine HCG, Qual Negative ASSESSMENT/PLAN: Patient is a 28 year old female with history of nephrolithiasis (s/p lithotripsy with stent placement with / Renuka Lee in 2013, and again in 2018) presents with complaint of left flank pain. Acute complicated urinary tract infection -Complicated with hydronephrosis -CT abdomen, pelvis reveals left ureteral stent with moderate- marked hydronephrosis, non obstructing stone (9mm), and ureteritis. -Urology recommendations (Dr. Benitez) appreciated. Patient likely for OR tomorrow. Type and cross, PT/ PTT ordered. Patient is NPO. -IV normal saline at 100cc/hour -Rocephin 2 gram IV daily -ID recommendations (Dr. Mario) appreciated -Follow urine cultures -Follow blood cultures -Ofirmev 1000mg IV Q6 hours for pain -Zofran 4mg IV one time dose for nausea FEN -Fluids: IV normal saline at 100cc/hour -Electrolytes: within normal limits. Follow CMP, replete as necessary -Nutrition: NPO Prophylaxis: -SCDs bilateral lower extremities. Holding chemical anticoagulation in anticipation of OR procedure. Disposition -Admit patient to medical surgical floor. Visit type - Emergency Visit Emergency Visit: Yes ED Registration Date: 03/13/19 Care time: The patient presented to the Emergency Department on the above date and was hospitalized for further evaluation of their emergent condition. - New Patient This patient is new to me today: Yes Date on this admission: 03/13/19 - Critical Care Critical Care patient: No ATTENDING PHYSICIAN STATEMENT I saw and evaluated the patient. I reviewed the resident's note and discussed the case with the resident. I agree with the resident's findings and plan as documented. SUBJECTIVE: OBJECTIVE: ASSESSMENT AND PLAN:
[2019-03-13] MEDS: SODIUM CHLORIDE 1,000 ML IV SCH (17:04)
[2019-03-13 17:14] LABS: INR 1.27 (0.83-1.09)
[2019-03-13] MEDS: ACETAMINOPHEN 1000 MG/100 ML VIAL (NON FORMULARY) IVPB PRN (18:51)
--- NOTE | 2019-03-13 19:54 | CON.GU ---
Consult Consult Specialty:: Referred by:: Maximo Reason for Consultation:: urosepsis - History of Present Illness Chief Complaint: L flank pain History of Present Illness: 28 year old female with history of nephrolithiasis (s/p lithotripsy with stent placement with Barbara Lee in 2013, and again in 07/2018) presents with complaint of left flank pain. Pain began yesterday evening, patient attempted three extra strength Tylenol which was not palliative. Pain is sharp, radiating down the flank and anteriorly to her pelvis. She endorses subjective fevers, chills, nausea, for episodes non bloody, vomiting, dysuria, with foul smelling urine. Denies hematuria, urinary urgency, or frequency. She states that her last urinary tract infection was one month ago, treated with unknown antibiotic. Patient admits that she had been following up with Dr. Alva, however has not yet had left sided stent removed. cons req. ER course was notable for: (1) WBC 21.6, however afebrile, now T max 102 (2) CT A/P reveals left ureteral stent with moderate- marked hydronephrosis, non obstructing stone (9mm), ureteritis. (3) UA- turbid, with blood, positive nitrites, 2 blood, 3+ leukocyte esterase Recent Travel: Denies PAST MEDICAL HISTORY: Nephrolithiasis PAST SURGICAL HISTORY: Lithotripsy, stent placement 2013 left sided renal stent placement 2018 Social History: Smoking: Denies Alcohol: Denies Drugs: Denies Patient has 4 children. Lives at home with children's father. Works as health aide. Family History: Mother: diabetes mellitus Father: patient unable to provide Allergies No Known Allergies Allergy (Verified 03/13/19 11:29) - History Source History Provided By: Patient, Medical Record Limitations to Obtaining History: No Limitations - Past Medical History Gastrointestinal: Yes: Constipation Renal/: Yes: Renal Calculi (bilateral), UTI (pyelonephritis treated , persistent urine c/s pos for ecoli) ...LMP: 07/18/18 - Past Surgical History Past Surgical History: Yes: None - Alcohol/Substance Use Hx Alcohol Use: Yes (socially) History of Substance Use: reports: None - Smoking History Smoking history: Never smoked Have you smoked in the past 12 months: No - Social History History of Recent Travel: No Home Medications - Allergies Allergies/Adverse Reactions: Allergies Allergy/AdvReac Type Severity Reaction Status Date / Time No Known Allergies Allergy Verified 03/13/19 11:29 - Home Medications Home Medications: Ambulatory Orders NK [No Known Home Medication] 09/08/18 Review of Systems - Review of Systems Constitutional: reports: Chills, Fever Genitourinary: reports: Flank Pain Physical Exam- Vital Signs: Vital Signs Temperature 102.0 F H 03/13/19 18:56 Pulse Rate 106 H 03/13/19 18:56 Respiratory Rate 20 03/13/19 19:42 Blood Pressure 119/49 L 03/13/19 18:56 O2 Sat by Pulse Oximetry (%) 98 03/13/19 19:42 Constitutional: Yes: Well Nourished, No Distress, Calm Gastrointestinal: Yes: Normal Bowel Sounds, Tenderness (LUQ, LLQ) Renal/: Yes: CVA Tenderness - Left Labs: CBC, BMP 03/13/19 12:06 03/13/19 12:06 Imaging - Results Cat Scan: Report Reviewed, Image Reviewed Problem List - Problems (1) Retained ureteral stent Code(s): Z96.0 - PRESENCE OF UROGENITAL IMPLANTS (2) Ureteral stent occlusion Code(s): T83.192A - [facility] COMPL OF INDWELLING URETERAL STENT, INITIAL ENCOUNTER (3) Hydronephrosis Assessment/Plan: urgent L perc nephrostomy by IR, then cysto and L JJ stent change when stable Code(s): N13.30 - UNSPECIFIED HYDRONEPHROSIS Qualifiers: Hydronephrosis type: unspecified (4) UTI (urinary tract infection) Assessment/Plan: ur cx, ivfs, iv abxs, ID eval Code(s): N39.0 - URINARY TRACT INFECTION, SITE NOT SPECIFIED Qualifiers: Urinary tract infection type: site unspecified Hematuria presence: without hematuria Qualified Code(s): N39.0 - Urinary tract infection, site not specified (5) Calculus of kidney Assessment/Plan: f/u for ESWL L after uti resolved Code(s): N20.0 - CALCULUS OF KIDNEY
--- NOTE | 2019-03-13 21:47 | PN ---
Teaching Attending Note Name of Resident: Kenneth Quijano ATTENDING PHYSICIAN STATEMENT I saw and evaluated the patient. I reviewed the resident's note and discussed the case with the resident. I agree with the resident's findings and plan as documented. SUBJECTIVE: Patient is a 28 year old female with history of nephrolithiasis (s/p lithotripsy with stent placement by Dr. Renuka Lee in 2018 and at [facility] in 2013, presents to the ED. c/o having left flank pain with fever at home. OBJECTIVE: Vital Signs Temperature 102 F H 03/13/19 19:49 Pulse Rate 106 H 03/13/19 19:49 Respiratory Rate 20 03/13/19 19:49 Blood Pressure 119/49 L 03/13/19 19:49 O2 Sat by Pulse Oximetry (%) 98 03/13/19 19:42 GENERAL: The patient is awake, alert, and fully oriented, in no acute distress. HEAD: Normal with no signs of trauma. EYES: PERRL, extraocular movements intact, sclera anicteric, conjunctiva clear. ENT: Ears normal, oropharynx clear without exudates, moist mucous membranes. NECK: Trachea midline, full range of motion, supple. LUNGS: Breath sounds equal, clear to auscultation bilaterally, no wheezes, no crackles, no accessory muscle use. HEART: sinus tach. S1, S2 without murmur, rub or gallop. ABDOMEN: Soft, left CVa tenderness, nondistended, normoactive bowel sounds, no guarding, no rebound, no hepatosplenomegaly, no masses. EXTREMITIES: 2+ pulses, warm, well-perfused, no edema. NEUROLOGICAL: Cranial nerves II through XII grossly intact. Normal speech, gait not observed. PSYCH: Normal mood, normal affect. SKIN: Warm, dry, normal turgor, no rashes or lesions noted CBCD WBC 21.6 K/mm3 (4.0-10.0) H 03/13/19 12:06 RBC 4.07 M/mm3 (3.60-5.2) 03/13/19 12:06 Hgb 12.4 GM/dL (10.7-15.3) 03/13/19 12:06 Hct 37.4 % (32.4-45.2) 03/13/19 12:06 MCV 91.8 fl (80-96) 03/13/19 12:06 MCHC 33.2 g/dl (32.0-36.0) 03/13/19 12:06 RDW 13.5 % (11.6-15.6) 03/13/19 12:06 Plt Count 364 K/MM3 (134-434) 03/13/19 12:06 MPV 9.5 fl (7.5-11.1) 03/13/19 12:06 CMP Sodium 136 mmol/L (136-145) 03/13/19 12:06 Potassium 3.6 mmol/L (3.5-5.1) 03/13/19 12:06 Chloride 101 mmol/L (98-107) 03/13/19 12:06 Carbon Dioxide 25 mmol/L (21-32) 03/13/19 12:06 Anion Gap 10 MMOL/L (8-16) 03/13/19 12:06 BUN 11.7 mg/dL (7-18) 03/13/19 12:06 Creatinine 0.6 mg/dL (0.55-1.3) 03/13/19 12:06 Random Glucose 92 mg/dL (74-106) 03/13/19 12:06 Calcium 9.5 mg/dL (8.5-10.1) 03/13/19 12:06 Total Bilirubin 1.1 mg/dL (0.2-1) H 03/13/19 12:06 AST 19 U/L (15-37) 03/13/19 12:06 ALT 16 U/L (13-61) 03/13/19 12:06 Alkaline Phosphatase 77 U/L (45-117) 03/13/19 12:06 Total Protein 8.5 g/dl (6.4-8.2) H 03/13/19 12:06 Albumin 4.0 g/dl (3.4-5.0) 03/13/19 12:06 Current Medications Generic Name Dose Route Start Last Admin Trade Name Freq PRN Reason Stop Dose Admin Acetaminophen 1,000 mg 03/13/19 17:21 03/13/19 18:51 Ofirmev Injection - IVPB 1,000 mg Q6H PRN Administration PAIN LEVEL 6-10 Ceftriaxone Sodium 2 gm/ 100 mls @ 200 mls/hr 03/14/19 10:00 Dextrose IVPB DAILY AMEYA Protocol Sodium Chloride 1,000 mls @ 100 mls/hr 03/13/19 17:00 03/13/19 17:04 Normal Saline - IV 03/15/19 02:59 100 mls/hr ASDIR AMEYA Administration Home Medications Medication Instructions Recorded NK [No Known Home Medication] 09/08/18 ASSESSMENT AND PLAN: Patient is a 28 year old female with history of nephrolithiasis (s/p lithotripsy with stent placement with / Renuka Lee in 2018 and again in 07/2013 ) presents to the ED. c/o having left flank pain and fever at home. #Acute complicated urinary tract infection: with sepsis on IVF , urine cx and bld cx, lactic acid, rocephin 2gm daily, id anf uro consult appreciated, IV tylenol prn #Retained ureteral stent with Ureteral stent occlusion due to having kidney stones ; uro on the case # moderate Hydronephrosis: on CT scan , urgent L perc nephrostomy by IR, then cysto and L JJ stent change when stable as per urologist . DVT P:SCDs . Holding chemical anticoagulation in anticipation of OR procedure.
[2019-03-14] MEDS ORDERED: ONDANSETRON 4 MG/2 ML VIAL ONE (00:38)
[2019-03-14] MEDS ORDERED: ONDANSETRON 4 MG/2 ML VIAL IVPUSH ONE ×2 (00:41→09:10)
[2019-03-14] MEDS ORDERED: MORPHINE SULFATE 2 MG/ML VIAL IVPUSH ONE (01:26)
[2019-03-14] MEDS: ACETAMINOPHEN 1000 MG/100 ML VIAL (NON FORMULARY) IVPB PRN (01:30)
[2019-03-14] MEDS: SODIUM CHLORIDE 1,000 ML IV SCH ×2 (04:51→19:21)
[2019-03-14] MEDS ORDERED: VANCOMYCIN 1,000 MG in DEXTROSE 5%-WATER - 250 ML IVPB ONE (05:18)
[2019-03-14] MEDS ORDERED: VANCOMYCIN 1 GM in D5W (PRE-DOCKED) 1,000 MG/250 ML IVPB ONE (05:30)
[2019-03-14] MEDS ORDERED: PIPERACILLIN/TAZOBACTAM 4.5 GM VIAL IVPB ONE ×4 (05:34→23:36)
[2019-03-14] MEDS ORDERED: DEXTROSE 5%-WATER 100 ML IVPB ONE ×4 (05:34→23:36)
[2019-03-14] MEDS: PIPERACILLIN/TAZOB 4.5 GM 4.5 GM in DEXTROSE 5%-WATER 100 ML IVPB SCH ×3 (05:46→18:17)
[2019-03-14 06:43] LABS: HEMATOCRIT 29.7 % (32.4-45.2); HEMOGLOBIN 9.8 GM/dL (10.7-15.3); MCH 30.6 pg (25.7-33.7); MEAN CELL VOLUME 92.7 fl (80-96); MEAN PLT VOLUME 9.6 fl (7.5-11.1); PLATELET COUNT 297 K/MM3 (134-434); RDW 13.8 % (11.6-15.6); WHITE BLOOD COUNT 19.5 K/mm3 (4.0-10.0)
[2019-03-14 06:54] LABS: INR 1.59 (0.83-1.09); PROTHROMBIN TIME (PATIENT) 18.8 SEC (9.7-13.0)
[2019-03-14 06:56] LABS: ACTIVATED PTT 33.1 SECONDS (25.2-36.5)
[2019-03-14 08:00] LABS: ALBUMIN 2.8 g/dl (3.4-5.0); BILIRUBIN,TOTAL 0.9 mg/dL (0.2-1); BLOOD UREA NITROGEN 8.2 mg/dL (7-18); CREATININE 0.6 mg/dL (0.55-1.3); MAGNESIUM 1.9 mg/dL (1.8-2.4); PHOSPHOROUS 3.2 mg/dL (2.5-4.9); TOT PROT 6.5 g/dl (6.4-8.2)
--- NOTE | 2019-03-14 08:51 | PN ---
Progress Note (short form) - Note Progress Note: ID consult dictated imp/reccd 28 yo female prior history of nephrolithiasis since 2012, most recent stent placement July 2018- has had lithotripsy to break up large stones, told by urologist she still has small stones there, stent is still in place [facility]- no idea what she took has had suprapubic discomfort for months over last 24 hours developed severe flank pain and fevers, chills, nausea and vomiting on ct scan has left hydronephrosis with stent in place and ureteritis +pyuria prior culture, enterococcus jul 2018, prior to that sensitive GNR fever secondary to uti hydronephrosis nephrolithiasis with stent recent antiibotics raise concern for drug resistance vanco one dose and zosyn for now for IR drainage per urology Problem List - Problems (1) Fever Code(s): R50.9 - FEVER, UNSPECIFIED (2) UTI (urinary tract infection) Code(s): N39.0 - URINARY TRACT INFECTION, SITE NOT SPECIFIED Qualifiers: Urinary tract infection type: site unspecified Hematuria presence: without hematuria Qualified Code(s): N39.0 - Urinary tract infection, site not specified (3) Retained ureteral stent Code(s): Z96.0 - PRESENCE OF UROGENITAL IMPLANTS (4) Hydronephrosis Code(s): N13.30 - UNSPECIFIED HYDRONEPHROSIS Qualifiers: Hydronephrosis type: unspecified Qualified Code(s): N13.30 - Unspecified hydronephrosis
--- NOTE | 2019-03-14 09:33 | CONS ---
DATE OF CONSULTATION: CONSULTATION REQUESTED BY: Saad Benitez MD HISTORY OF PRESENT ILLNESS: This is a 28-year-old woman with past medical history of nephrolithiasis she reports since 2012. She reported she had been doing well for quite a while until July of 2018 when she started having flank pain again. She had a stent placed at that time by Dr. Beau Lee. She was told she had 2 large stones which she had laser for several times. She reports she still has the stent in place. She was treated 1 month ago at [facility] for a UTI. She has no idea what she took. She presents with 24 hours of nausea, vomiting, fevers, chills, and severe flank pain. She reports for the last several months she has had suprapubic discomfort which she attributes to the stent. She also reports that she has had dysuria which has been for quite a while at this point. PAST MEDICAL HISTORY: Notable for nephrolithiasis. PAST SURGICAL HISTORY: Lithotripsy. She had originally a stent in 2013. Another stent was placed in 2019. SOCIAL HISTORY: There is no history of travel. There is no smoking, alcohol, or substance use. She has 4 children ranging in age from 12 to 3, and she lives with the children's father. She works as a home health aide. She reports she is on her feet all day. FAMILY HISTORY: Notable for diabetes. ALLERGIES: She has no known drug allergies. MEDICATIONS: She does not take any medicine regularly. REVIEW OF SYSTEMS: As per HPI. She has fevers, chills, flank pain, and dysuria. She has had the nausea and vomiting. She has no cough or shortness of breath or diarrhea. PHYSICAL EXAMINATION: Vital Signs: T-max is 102. Current temp is 97.6, pulse of 80, blood pressure 105/50. Respiratory rate is 20. HEENT: She is normocephalic. Her eyes are anicteric. Neck: Supple. Lungs: Clear to auscultation. Heart: Regular rate and rhythm. Abdomen: Soft. She has some suprapubic discomfort as well as she has left flank pain. Extremities: Without edema. Skin: She has no rash. LABORATORY: White count on admission was 21,000, today is 19.5, hemoglobin 9.8. Platelets are 297. BUN and creatinine are 8 and 0.6. LFTs are normal. Urinalysis has 3+ leukocyte esterase with 301 white cells. Urine test is negative, and blood and urine culture are pending. CAT scan findings are notable for a left-sided ureteral stent. She has moderate to marked left hydronephrosis, and she has smaller nonobstructing stones in the left kidney, interval thickening of the left ureteral wall suggestive of ureteritis. SUMMARY: This is a 28-year-old woman admitted with fever, urinary tract infection, left-sided hydronephrosis in the setting of a ureteral stent. Recent antibiotics raise concern for drug resistance. Looking at her prior cultures at our hospital, she has had sensitive enterococcus in July, and prior to that, sensitive gram-negative rods including klebsiella and Escherichia coli, but she has been following up all year with the urologist. It is unclear what her current tyson is. We suggest at this time we treat her a vancomycin 1 dose and Zosyn. She is scheduled for interventional radiology drainage of the kidney today. Further recommendations to follow based on cultures. SONIA BRITO M.D. [id number]
[2019-03-14] MEDS ORDERED: CEFTRIAXONE 2 GM in DEXTROSE 5%-WATER 100 ML IVPB SCH (10:00)
[2019-03-14] MEDS: KCL 10 MEQ IVPB 10 MEQ/100 ML INFUS.BAG IVPB SCH ×3 (11:55→17:01)
[2019-03-14] MEDS ORDERED: oxyCODONE HCL 5 MG TABLET PO ONE (13:15)
[2019-03-14] MEDS ORDERED: ACETAMINOPHEN 325 MG TABLET (FP) PO ONE (13:15)
--- NOTE | 2019-03-14 16:41 | PN ---
Physical Exam: SUBJECTIVE: Patient seen and examined. She is reporting left flank pain 8/10 as well as nausea. She has had poor PO intake the last couple days. OBJECTIVE: Vital Signs Period Temp Pulse Resp BP Sys/Dukes Pulse Ox Last 24 Hr 97.6 F-102.0 F 77-106 15-20 102-130/49-70 98-100 GENERAL: The patient is awake, alert, and fully oriented, in moderate distress. HEAD: Normal with no signs of trauma. EYES: PERRL, extraocular movements intact, sclera anicteric, conjunctiva clear. No ptosis. ENT: Ears normal, nares patent, moist mucous membranes. NECK: Trachea midline, full range of motion, supple. LUNGS: Breath sounds equal, clear to auscultation bilaterally, no wheezes, no crackles, no accessory muscle use. HEART: Regular rate and rhythm, S1, S2 without murmur, rub or gallop. ABDOMEN: Soft, RLQ tenderness, nondistended, normoactive bowel sounds, L CVA tenderness EXTREMITIES: 2+ pulses, warm, well-perfused, no edema. NEUROLOGICAL: Cranial nerves II through XII grossly intact. Normal speech, gait not observed. PSYCH: Normal mood, normal affect. SKIN: Warm, dry, normal turgor, no rashes or lesions noted Laboratory Results - last 24 hr 03/13/19 03/13/19 03/13/19 13:45 16:30 16:30 WBC RBC Hgb Hct MCV MCH MCHC RDW Plt Count MPV PT with INR 15.00 H INR 1.27 H PTT (Actin FS) Sodium Potassium Chloride Carbon Dioxide Anion Gap BUN Creatinine Est GFR (CKD-EPI)AfAm Est GFR (CKD-EPI)NonAf Random Glucose Lactic Acid Calcium Phosphorus Magnesium Total Bilirubin AST ALT Alkaline Phosphatase Total Protein Albumin U Pathogenic Cast Auto None seen Blood Type O POSITIVE Antibody Screen Negative 03/13/19 03/13/19 03/14/19 17:32 23:30 06:00 WBC 19.5 H RBC 3.20 L Hgb 9.8 L Hct 29.7 L D MCV 92.7 MCH 30.6 MCHC 33.0 RDW 13.8 Plt Count 297 MPV 9.6 PT with INR INR PTT (Actin FS) Sodium Potassium Chloride Carbon Dioxide Anion Gap BUN Creatinine Est GFR (CKD-EPI)AfAm Est GFR (CKD-EPI)NonAf Random Glucose Lactic Acid 2.0 0.8 Calcium Phosphorus Magnesium Total Bilirubin AST ALT Alkaline Phosphatase Total Protein Albumin U Pathogenic Cast Auto Blood Type Antibody Screen 03/14/19 03/14/19 06:00 06:00 WBC RBC Hgb Hct MCV MCH MCHC RDW Plt Count MPV PT with INR 18.80 H INR 1.59 H PTT (Actin FS) 33.1 Sodium 141 Potassium 3.0 L Chloride 108 H Carbon Dioxide 23 Anion Gap 10 BUN 8.2 Creatinine 0.6 Est GFR (CKD-EPI)AfAm 143.77 Est GFR (CKD-EPI)NonAf 124.04 Random Glucose 91 Lactic Acid Calcium 8.0 L Phosphorus 3.2 Magnesium 1.9 Total Bilirubin 0.9 AST 13 L ALT 13 Alkaline Phosphatase 60 Total Protein 6.5 Albumin 2.8 L U Pathogenic Cast Auto Blood Type Antibody Screen Active Medications Generic Name Dose Route Start Last Admin Trade Name Freq PRN Reason Stop Dose Admin Acetaminophen 1,000 mg 03/13/19 17:21 03/14/19 01:30 Ofirmev Injection - IVPB 1,000 mg Q6H PRN Administration PAIN LEVEL 6-10 Sodium Chloride 1,000 mls @ 100 mls/hr 03/13/19 17:00 03/14/19 04:51 Normal Saline - IV 03/15/19 02:59 100 mls/hr ASDIR AMEYA Administration Piperacillin Sod/Tazobactam 100 mls @ 200 mls/hr 03/14/19 05:30 03/14/19 09: 41 Sod 4.5 gm/ Dextrose IVPB 200 mls/hr Q8H-IV AMEYA Administration Protocol Oxycodone HCl 5 mg 03/14/19 19:00 Roxicodone - PO Q6H PRN PAIN LEVEL 6-10 ASSESSMENT/PLAN: Ms. Cristina is a 28yo female with PMH of nephrolithiasis s/p lithotripsy with stent placement 2013, and again 07/2018 presents with complaint of left flank pain. She did not follow up with Dr. Alva and still had the stent placed. #Acute complicated UTI CT abd/pelvis showed left ureteral stent with moderate-marked hydronephrosis, 9mm non-obstructing stone, and ureteritis. Rocephin was initiated in ED. -Dr. Benitez consulted- urgent L perc nephrostomy done by IR today, then cysto and L JJ stent change planned 03/16/19 -IV NS 100mL/hr-reevaluate tomorrow -Dr. Mario consulted- d/c Rocephin and begin Zosyn and Vanc -urine cx prelim result non-lactose fermenting GNB -neprostomy tube cx pending -blood cx pending -pain control- oxycodone 5mg Q6H PRN -Zofran 4mg Q4H PRN -CBC #leukocytosis 19.5 -on abx -CBC #hypokalemia 3.0 -repleted KCl 30meq -BMP FEN NS monitor K regular diet DVT Ppe heparin dispo next procedure scheduled for 03/16 Visit type - Emergency Visit Emergency Visit: Yes ED Registration Date: 03/13/19 Care time: The patient presented to the Emergency Department on the above date and was hospitalized for further evaluation of their emergent condition. - New Patient This patient is new to me today: Yes Date on this admission: 03/14/19 - Critical Care Critical Care patient: No - Discharge Referral Referred to [facility] No ATTENDING PHYSICIAN STATEMENT I saw and evaluated the patient. I reviewed the resident's note and discussed the case with the resident. I agree with the resident's findings and plan as documented. SUBJECTIVE: OBJECTIVE: ASSESSMENT AND PLAN:
--- NOTE | 2019-03-14 17:37 | PN ---
Progres Note Chief Complaint: pt feels better History of Present Illness: s/p L PCN, afeb - Objective Vital Signs: Vital Signs Temperature 98.8 F 03/14/19 16:58 Pulse Rate 79 03/14/19 16:58 Respiratory Rate 20 03/14/19 16:58 Blood Pressure 104/56 L 03/14/19 16:58 O2 Sat by Pulse Oximetry (%) 100 03/14/19 11:03 Gastrointestinal: Yes: Normal Bowel Sounds, Soft Genitourinary: Yes: CVA Tenderness - Left (L neph tube w yuriy urine) Labs/Additional Data: CBC, BMP 03/14/19 06:00 03/14/19 06:00 INR, PTT INR 1.59 (0.83-1.09) H 03/14/19 06:00 Blood Type Blood Type O POSITIVE 03/13/19 16:30 Antibody Screen Negative 03/13/19 16:30 Problem List - Problems (1) Retained ureteral stent Code(s): Z96.0 - PRESENCE OF UROGENITAL IMPLANTS (2) Ureteral stent occlusion Assessment/Plan: cont abxs, for cysto L JJ stent change 03/16 Code(s): T83.192A - [facility] COMPL OF INDWELLING URETERAL STENT, INITIAL ENCOUNTER (3) Hydronephrosis Code(s): N13.30 - UNSPECIFIED HYDRONEPHROSIS Qualifiers: Hydronephrosis type: unspecified Qualified Code(s): N13.30 - Unspecified hydronephrosis (4) UTI (urinary tract infection) Code(s): N39.0 - URINARY TRACT INFECTION, SITE NOT SPECIFIED Qualifiers: Urinary tract infection type: site unspecified Hematuria presence: without hematuria Qualified Code(s): N39.0 - Urinary tract infection, site not specified (5) Calculus of kidney Code(s): N20.0 - CALCULUS OF KIDNEY
[2019-03-14] MEDS ORDERED: oxyCODONE HCL 5 MG TABLET PO PRN (19:00)
--- NOTE | 2019-03-14 19:47 | PN ---
Teaching Attending Note Name of Resident: Ana Sanders ATTENDING PHYSICIAN STATEMENT I saw and evaluated the patient. I reviewed the resident's note and discussed the case with the resident. I agree with the resident's findings and plan as documented. SUBJECTIVE: complains of Left flank pain. No fever/chills. No nausea/vomiting OBJECTIVE: Afebrile, hemodynamically Stable. Last Vital Signs Temp Pulse Resp BP Pulse Ox 98.8 F 79 20 104/56 L 100 03/14/19 16:58 03/14/19 16:58 03/14/19 16:58 03/14/19 16:58 03/14/19 11:03 HEENt - Atrauamtic, normocephalic. Heart - S1, S2, RRR Lungs - clear to auscultation Abdomen - L flank pain/CVA tenderness. Soft. Bowel Sounds normal. Extremities- no edema, no calf tenderness. Laboratory Results - last 24 hr 03/13/19 03/14/19 03/14/19 23:30 06:00 06:00 WBC 19.5 H RBC 3.20 L Hgb 9.8 L Hct 29.7 L D MCV 92.7 MCH 30.6 MCHC 33.0 RDW 13.8 Plt Count 297 MPV 9.6 PT with INR 18.80 H INR 1.59 H PTT (Actin FS) 33.1 Sodium Potassium Chloride Carbon Dioxide Anion Gap BUN Creatinine Est GFR (CKD-EPI)AfAm Est GFR (CKD-EPI)NonAf Random Glucose Lactic Acid 0.8 Calcium Phosphorus Magnesium Total Bilirubin AST ALT Alkaline Phosphatase Total Protein Albumin 03/14/19 06:00 WBC RBC Hgb Hct MCV MCH MCHC RDW Plt Count MPV PT with INR INR PTT (Actin FS) Sodium 141 Potassium 3.0 L Chloride 108 H Carbon Dioxide 23 Anion Gap 10 BUN 8.2 Creatinine 0.6 Est GFR (CKD-EPI)AfAm 143.77 Est GFR (CKD-EPI)NonAf 124.04 Random Glucose 91 Lactic Acid Calcium 8.0 L Phosphorus 3.2 Magnesium 1.9 Total Bilirubin 0.9 AST 13 L ALT 13 Alkaline Phosphatase 60 Total Protein 6.5 Albumin 2.8 L Current Medications Generic Name Dose Route Start Last Admin Trade Name Freq PRN Reason Stop Dose Admin Acetaminophen 1,000 mg 03/13/19 17:21 03/14/19 01:30 Ofirmev Injection - IVPB 1,000 mg Q6H PRN Administration PAIN LEVEL 6-10 Sodium Chloride 1,000 mls @ 100 mls/hr 03/13/19 17:00 03/14/19 19:21 Normal Saline - IV 03/15/19 02:59 Not Given ASDIR AMEYA Piperacillin Sod/Tazobactam 100 mls @ 200 mls/hr 03/14/19 05:30 03/14/19 18: 17 Sod 4.5 gm/ Dextrose IVPB 200 mls/hr Q8H-IV AMEYA Administration Protocol Oxycodone HCl 5 mg 03/14/19 19:00 Roxicodone - PO Q6H PRN PAIN LEVEL 6-10 Home Medications Medication Instructions Recorded NK [No Known Home Medication] 09/08/18 ASSESSMENT AND PLAN: 28 year old female with history of Nephrolithiasis (s/p lithotripsy with stent placement by Dr. Beau Lee) presents to the ED with left flank pain and fever. 1. Acute complicated UTI with Sepsis and Obstruction with L hydronephrosis CT A/P - Ureteral wall thickening suggestive of Ureteritis, moderate L Hydronephrosis with L JJ Stent in place. For IR guided L percutaneous nephrostomy today Urology evaluated - for Cystoscopy and L JJ Stent exchange 03/16 Tmax 101.3. Urine Cx pos for NLFGNB Continue Zosyn. ID consulted. 2. Hypokalemia - repleted. DVT Px - Heparin SQ.
[2019-03-14] MEDS: HEPARIN NA (PORCINE) 5,000 UNITS/ML 1ML VIAL SQ SCH (21:06)
[2019-03-14] MEDS: ONDANSETRON 4 MG/2 ML VIAL IVPUSH PRN (21:36)
[2019-03-15] MEDS: PIPERACILLIN/TAZOB 4.5 GM 4.5 GM in DEXTROSE 5%-WATER 100 ML IVPB SCH ×3 (01:36→17:37)
[2019-03-15] MEDS: HEPARIN NA (PORCINE) 5,000 UNITS/ML 1ML VIAL SQ SCH ×3 (05:58→21:50)
[2019-03-15 06:10] LABS: BASO % 0.3 % (0-2.0); EOS % 0.2 % (0-4.5); HEMATOCRIT 27.1 % (32.4-45.2); HEMOGLOBIN 9.2 GM/dL (10.7-15.3); LYMPH % 12.9 % (8-40); MCH 31.2 pg (25.7-33.7); MCHC 33.8 g/dl (32.0-36.0); MEAN CELL VOLUME 92.4 fl (80-96); MEAN PLT VOLUME 8.9 fl (7.5-11.1); MONO % 6.8 % (3.8-10.2); NEUT % 79.8 % (42.8-82.8); PLATELET COUNT 281 K/MM3 (134-434); RBC 2.94 M/mm3 (3.60-5.2); RDW 13.6 % (11.6-15.6); WHITE BLOOD COUNT 13.5 K/mm3 (4.0-10.0)
[2019-03-15 06:35] LABS: BLOOD UREA NITROGEN 4.7 mg/dL (7-18); CALCIUM 8.2 mg/dL (8.5-10.1); CREATININE 0.5 mg/dL (0.55-1.3)
--- NOTE | 2019-03-15 06:38 | PN ---
Physical Exam: SUBJECTIVE: Patient seen and examined. She reports continued nausea and left flank pain. Fevers overnight. OBJECTIVE: Vital Signs Period Temp Pulse Resp BP Sys/Dukes Pulse Ox Last 24 Hr 97.6 F-99.9 F 77-101 15-20 102-130/56-70 100-100 GENERAL: The patient is awake, alert, and fully oriented, in moderate distress. HEAD: Normal with no signs of trauma. EYES: PERRL, extraocular movements intact, sclera anicteric, conjunctiva clear. No ptosis. ENT: Ears normal, nares patent, moist mucous membranes. NECK: Trachea midline, full range of motion, supple. LUNGS: Breath sounds equal, clear to auscultation bilaterally, no wheezes, no crackles, no accessory muscle use. HEART: Regular rate and rhythm, S1, S2 without murmur, rub or gallop. ABDOMEN: Soft, nontender, nondistended, normoactive bowel sounds, BACK: L CVA tenderness EXTREMITIES: 2+ pulses, warm, well-perfused, no edema. NEUROLOGICAL: Cranial nerves II through XII grossly intact. Normal speech, gait not observed. PSYCH: Sad affect SKIN: Warm, dry, normal turgor, no rashes or lesions noted Laboratory Results - last 24 hr 03/14/19 03/14/19 03/14/19 06:00 06:00 06:00 WBC 19.5 H RBC 3.20 L Hgb 9.8 L Hct 29.7 L D MCV 92.7 MCH 30.6 MCHC 33.0 RDW 13.8 Plt Count 297 MPV 9.6 Absolute Neuts (auto) Neutrophils % Lymphocytes % Monocytes % Eosinophils % Basophils % Nucleated RBC % PT with INR 18.80 H INR 1.59 H PTT (Actin FS) 33.1 Sodium 141 Potassium 3.0 L Chloride 108 H Carbon Dioxide 23 Anion Gap 10 BUN 8.2 Creatinine 0.6 Est GFR (CKD-EPI)AfAm 143.77 Est GFR (CKD-EPI)NonAf 124.04 Random Glucose 91 Calcium 8.0 L Phosphorus 3.2 Magnesium 1.9 Total Bilirubin 0.9 AST 13 L ALT 13 Alkaline Phosphatase 60 Total Protein 6.5 Albumin 2.8 L 03/15/19 03/15/19 05:35 05:35 WBC 13.5 H RBC 2.94 L Hgb 9.2 L Hct 27.1 L MCV 92.4 MCH 31.2 MCHC 33.8 RDW 13.6 Plt Count 281 MPV 8.9 Absolute Neuts (auto) 10.8 H Neutrophils % 79.8 Lymphocytes % 12.9 D Monocytes % 6.8 Eosinophils % 0.2 D Basophils % 0.3 Nucleated RBC % 0 PT with INR INR PTT (Actin FS) Sodium 137 Potassium 3.0 L Chloride 103 Carbon Dioxide 25 Anion Gap 9 BUN 4.7 L Creatinine 0.5 L Est GFR (CKD-EPI)AfAm 152.65 Est GFR (CKD-EPI)NonAf 131.71 Random Glucose 73 L Calcium 8.2 L Phosphorus Magnesium Total Bilirubin AST ALT Alkaline Phosphatase Total Protein Albumin Active Medications Generic Name Dose Route Start Last Admin Trade Name Freq PRN Reason Stop Dose Admin Acetaminophen 1,000 mg 03/13/19 17:21 03/14/19 01:30 Ofirmev Injection - IVPB 1,000 mg Q6H PRN Administration PAIN LEVEL 6-10 Heparin Sodium (Porcine) 5,000 unit 03/14/19 22:00 03/15/19 05:58 Heparin - SQ 5,000 unit TID AMEYA Administration Piperacillin Sod/Tazobactam 100 mls @ 200 mls/hr 03/14/19 05:30 03/15/19 01: 36 Sod 4.5 gm/ Dextrose IVPB 200 mls/hr Q8H-IV AMEYA Administration Protocol Ondansetron HCl 4 mg 03/14/19 21:17 03/14/19 21:36 Zofran Injection IVPUSH 4 mg Q6H PRN Administration NAUSEA AND/OR VOMITING Oxycodone HCl 5 mg 03/14/19 19:00 Roxicodone - PO Q6H PRN PAIN LEVEL 6-10 ASSESSMENT/PLAN: Ms. Cristina is a 28yo female with PMH of nephrolithiasis s/p lithotripsy with stent placement 2013, and again 07/2018 presents with complaint of left flank pain. She did not follow up with Dr. Alva and still had the stent placed. #Acute complicated UTI CT abd/pelvis showed left ureteral stent with moderate-marked hydronephrosis, 9mm non-obstructing stone, and ureteritis. Rocephin was initiated in ED. -Dr. Benitez consulted- urgent L perc nephrostomy done by IR yesterday, then cysto and L JJ stent change planned tomorrow at noon -IV NS 100mL/hr -Dr. Mario consulted- d/c'ed rocephin, given 1x vanc, on day 2 of Zosyn -urine cx prelim result non-lactose fermenting GNB -neprostomy tube cx pending -blood cx pending -pain control- oxycodone 5mg Q6H PRN -Zofran 4mg Q4H PRN -CBC -BMP #leukocytosis 19.5-->13.5 -on abx -CBC #hypokalemia 3.0, unchanged after KCl 30meq -KCl 40meq and K phos 15mm today -BMP #hypophosphatemia 2.1 -Na phos 15mm -Ph #iron deficiency anemia Hb 9.9-->9.2, iron 14, MCV 92 -ferrous sulfate FEN NS monitor K, Phos regular diet DVT Ppe heparin Visit type - Emergency Visit Emergency Visit: Yes ED Registration Date: 03/13/19 Care time: The patient presented to the Emergency Department on the above date and was hospitalized for further evaluation of their emergent condition. - New Patient This patient is new to me today: No - Critical Care Critical Care patient: No - Discharge Referral Referred to [facility] No ATTENDING PHYSICIAN STATEMENT I saw and evaluated the patient. I reviewed the resident's note and discussed the case with the resident. I agree with the resident's findings and plan as documented. SUBJECTIVE: OBJECTIVE: ASSESSMENT AND PLAN:
[2019-03-15] MEDS ORDERED: POTASSIUM CHLORIDE TABS 20 MEQ TABLET.ER (FP) PO ONE (07:18)
[2019-03-15] MEDS: ONDANSETRON 4 MG/2 ML VIAL IVPUSH PRN (08:32)
[2019-03-15] MEDS ORDERED: PIPERACILLIN/TAZOBACTAM 4.5 GM VIAL IVPB ONE ×2 (09:23→17:17)
[2019-03-15] MEDS ORDERED: DEXTROSE 5%-WATER 100 ML IVPB ONE ×2 (09:23→17:17)
[2019-03-15] MEDS: MORPHINE SULFATE 2 MG/ML VIAL IVPUSH PRN ×2 (10:05→17:40)
[2019-03-15] MEDS: KCL 10 MEQ IVPB 10 MEQ/100 ML INFUS.BAG IVPB SCH ×3 (10:10→13:17)
[2019-03-15 10:57] LABS: PHOSPHOROUS 2.1 mg/dL (2.5-4.9)
--- NOTE | 2019-03-15 14:25 | PN ---
Teaching Attending Note Name of Resident: Ana Sanders ATTENDING PHYSICIAN STATEMENT I saw and evaluated the patient. I reviewed the resident's note and discussed the case with the resident. I agree with the resident's findings and plan as documented. SUBJECTIVE: ongoing Left flank pain. No fever/chills. No nausea/vomiting OBJECTIVE: Afebrile overnight T 99.9 (down from 102), hemodynamically Stable. Last Vital Signs Temp Pulse Resp BP Pulse Ox 98.2 F 74 20 122/81 100 03/15/19 09:05 03/15/19 09:05 03/15/19 09:05 03/15/19 09:05 03/15/19 09:00 Heart - S1, S2, RRR Lungs - clear to auscultation Abdomen - L flank pain/CVA tenderness. s/p L Nephrostomy draining clear urine. Soft abdo. Bowel Sounds normal. Extremities- no edema, no calf tenderness. Laboratory Results - last 24 hr 03/15/19 03/15/19 03/15/19 05:35 05:35 10:50 WBC 13.5 H RBC 2.94 L Hgb 9.2 L Hct 27.1 L MCV 92.4 MCH 31.2 MCHC 33.8 RDW 13.6 Plt Count 281 MPV 8.9 Absolute Neuts (auto) 10.8 H Neutrophils % 79.8 Lymphocytes % 12.9 D Monocytes % 6.8 Eosinophils % 0.2 D Basophils % 0.3 Nucleated RBC % 0 Retic Count 1.42 Sodium 137 Potassium 3.0 L Chloride 103 Carbon Dioxide 25 Anion Gap 9 BUN 4.7 L Creatinine 0.5 L Est GFR (CKD-EPI)AfAm 152.65 Est GFR (CKD-EPI)NonAf 131.71 Random Glucose 73 L Calcium 8.2 L Phosphorus 2.1 L Magnesium 2.0 Iron TIBC Iron Saturation Unsaturated IBC Ferritin 03/15/19 10:50 WBC RBC Hgb Hct MCV MCH MCHC RDW Plt Count MPV Absolute Neuts (auto) Neutrophils % Lymphocytes % Monocytes % Eosinophils % Basophils % Nucleated RBC % Retic Count Sodium Potassium Chloride Carbon Dioxide Anion Gap BUN Creatinine Est GFR (CKD-EPI)AfAm Est GFR (CKD-EPI)NonAf Random Glucose Calcium Phosphorus Magnesium Iron 14 L TIBC 266 Iron Saturation 5 L Unsaturated IBC 252 Ferritin 187.5 Current Medications Generic Name Dose Route Start Last Admin Trade Name Freq PRN Reason Stop Dose Admin Acetaminophen 1,000 mg 03/13/19 17:21 03/14/19 01:30 Ofirmev Injection - IVPB 1,000 mg Q6H PRN Administration PAIN LEVEL 6-10 Heparin Sodium (Porcine) 5,000 unit 03/14/19 22:00 03/15/19 13:17 Heparin - SQ 5,000 unit TID AMEYA Administration Piperacillin Sod/Tazobactam 100 mls @ 200 mls/hr 03/14/19 05:30 03/15/19 09: 28 Sod 4.5 gm/ Dextrose IVPB 200 mls/hr Q8H-IV AMEYA Administration Protocol Morphine Sulfate 2 mg 03/15/19 09:45 03/15/19 10:05 Morphine Sulfate IVPUSH 2 mg Q6H PRN Administration PAIN LEVEL 6-10 Ondansetron HCl 4 mg 03/14/19 21:17 03/15/19 08:32 Zofran Injection IVPUSH 4 mg Q6H PRN Administration NAUSEA AND/OR VOMITING Home Medications Medication Instructions Recorded NK [No Known Home Medication] 09/08/18 ASSESSMENT AND PLAN: 28 year old female with history of Nephrolithiasis (s/p lithotripsy with stent placement by Dr. Beau Lee) presents to the ED with left flank pain and fever. 1. Acute complicated UTI with Sepsis and Obstruction with L hydronephrosis CT A/P - Ureteral wall thickening suggestive of Ureteritis, moderate L Hydronephrosis with L JJ Stent in place. s/p IR guided L percutaneous nephrostomy 03/14 Urology evaluated - for Cystoscopy and L JJ Stent exchange 03/16 Urine Cx pos for EColi Continue Zosyn. ID following. 2. Hypokalemia/Hypophosphatemia - repleted. 3. Iron Deficiency Anemia - etiology unclear. Iron Sat 5%. Will need gynecology eval as out-patient. Will start FeSO4 supplementation pending out-patient work- up. DVT Px - Heparin SQ.
[2019-03-15] MEDS ORDERED: DOCUSATE SODIUM 100 MG CAPSULE (FP) PO PRN (14:29)
[2019-03-15] MEDS ORDERED: SODIUM PHOSPHATE - 15 MM in SODIUM CHLORIDE 250 ML IVPB ONE (14:31)
[2019-03-15] MEDS ORDERED: POTASSIUM PHOSPHATE 15 MM in SODIUM CHLORIDE 250 ML IVPB ONE (14:32)
--- NOTE | 2019-03-15 17:30 | PN ---
Progress Note (short form) - Note Progress Note: fevers trending down s/p PCN placement overall feels better has pain at the pcn site Vital Signs Period Temp Pulse Resp BP Sys/Dukes Pulse Ox Last 24 Hr 98.2 F-99.9 F 74-94 18-20 108-133/62-93 100 cor-rrr lungs decreased bs at bases abd soft,nt +right PCN ext no edema CBC, BMP 03/15/19 05:35 03/15/19 05:35 Microbiology 03/13/19 16:30 Blood - Peripheral Venous Blood Culture - Preliminary NO GROWTH OBTAINED AFTER 48 HOURS, INCUBATION TO CONTINUE FOR 3 DAYS. 03/13/19 13:45 Urine - Urine Clean Catch Urine Culture - Final Escherichia Coli Escherichia Coli#2 03/14/19 11:00 Urine - Urine Nephrostomy Tube Left Urine Culture - Final Non Lactose Fermenting Gnb 03/13/19 19:20 Blood - Peripheral Venous Blood Culture - Preliminary NO GROWTH OBTAINED AFTER 24 HOURS, INCUBATION TO CONTINUE FOR 4 DAYS. a/p fever secondary to uti hydronephrosis nephrolithiasis with stent awaiting ID of PCN culture continue zosyn for now Problem List - Problems (1) Fever Code(s): R50.9 - FEVER, UNSPECIFIED (2) UTI (urinary tract infection) Code(s): N39.0 - URINARY TRACT INFECTION, SITE NOT SPECIFIED Qualifiers: Urinary tract infection type: site unspecified Hematuria presence: without hematuria Qualified Code(s): N39.0 - Urinary tract infection, site not specified (3) Retained ureteral stent Code(s): Z96.0 - PRESENCE OF UROGENITAL IMPLANTS (4) Hydronephrosis Code(s): N13.30 - UNSPECIFIED HYDRONEPHROSIS Qualifiers: Hydronephrosis type: unspecified Qualified Code(s): N13.30 - Unspecified hydronephrosis
[2019-03-15] MEDS: FERROUS SO4 325 MG TABLET (FP) PO SCH (21:49)
[2019-03-15] MEDS ORDERED: SODIUM CHLORIDE 1,000 ML IV SCH (22:45)
[2019-03-16] MEDS ORDERED: DEXTROSE 5%-WATER 100 ML IVPB ONE ×3 (01:30→17:01)
[2019-03-16] MEDS ORDERED: PIPERACILLIN/TAZOBACTAM 4.5 GM VIAL IVPB ONE ×3 (01:30→17:01)
[2019-03-16] MEDS: PIPERACILLIN/TAZOB 4.5 GM 4.5 GM in DEXTROSE 5%-WATER 100 ML IVPB SCH ×3 (01:47→17:09)
[2019-03-16] MEDS: HEPARIN NA (PORCINE) 5,000 UNITS/ML 1ML VIAL SQ SCH (05:29)
[2019-03-16] MEDS: MORPHINE SULFATE 2 MG/ML VIAL IVPUSH PRN (06:16)
[2019-03-16 08:20] LABS: BASO % 0.6 % (0-2.0); HEMATOCRIT 25.5 % (32.4-45.2); HEMOGLOBIN 8.6 GM/dL (10.7-15.3); LYMPH % 21.1 % (8-40); MCH 31.1 pg (25.7-33.7); MCHC 33.8 g/dl (32.0-36.0); MEAN PLT VOLUME 9.3 fl (7.5-11.1); MONO % 9.4 % (3.8-10.2); NEUT % 67.9 % (42.8-82.8); PLATELET COUNT 301 K/MM3 (134-434); RBC 2.77 M/mm3 (3.60-5.2); RDW 13.6 % (11.6-15.6); WHITE BLOOD COUNT 8.3 K/mm3 (4.0-10.0)
[2019-03-16 08:59] LABS: BLOOD UREA NITROGEN 4.3 mg/dL (7-18); CALCIUM 8.4 mg/dL (8.5-10.1); CREATININE 0.5 mg/dL (0.55-1.3); PHOSPHOROUS 2.8 mg/dL (2.5-4.9); POTASSIUM 3.5 mmol/L (3.5-5.1)
[2019-03-16] MEDS: FERROUS SO4 325 MG TABLET (FP) PO SCH (09:10)
[2019-03-16] MEDS ORDERED: PT OWN MED DRAWER 7, Y5N ONE (10:14)
[2019-03-16] MEDS ORDERED: IRON SUCROSE INJECTION 200 MG in SODIUM CHLORIDE 90 ML IVPB ONE (10:40)
--- NOTE | 2019-03-16 10:47 | PN ---
Progress Note (short form) - Note Progress Note: feels well no complaints Vital Signs Period Temp Pulse Resp BP Sys/Dukes Pulse Ox Last 24 Hr 98.2 F-99.9 F 63-89 18-20 112-133/72-93 100-100 cor-rrr lungs clear abd soft,nt ext no edema CBC, BMP 03/16/19 07:00 03/16/19 07:00 Microbiology 03/13/19 19:20 Blood - Peripheral Venous Blood Culture - Preliminary NO GROWTH OBTAINED AFTER 48 HOURS, INCUBATION TO CONTINUE FOR 3 DAYS. 03/13/19 16:30 Blood - Peripheral Venous Blood Culture - Preliminary NO GROWTH OBTAINED AFTER 48 HOURS, INCUBATION TO CONTINUE FOR 3 DAYS. 03/13/19 13:45 Urine - Urine Clean Catch Urine Culture - Final Escherichia Coli Escherichia Coli#2 03/14/19 11:00 Urine - Urine Nephrostomy Tube Left Urine Culture - Final Non Lactose Fermenting Gnb a/p fever secondary to uti hydronephrosis nephrolithiasis with stent for stent replacement today can change to po bactrim 1 ds po bid when ready for discharge- would treat for 7 days d/w resident Problem List - Problems (1) Fever Code(s): R50.9 - FEVER, UNSPECIFIED (2) UTI (urinary tract infection) Code(s): N39.0 - URINARY TRACT INFECTION, SITE NOT SPECIFIED Qualifiers: Urinary tract infection type: site unspecified Hematuria presence: without hematuria Qualified Code(s): N39.0 - Urinary tract infection, site not specified (3) Retained ureteral stent Code(s): Z96.0 - PRESENCE OF UROGENITAL IMPLANTS (4) Hydronephrosis Code(s): N13.30 - UNSPECIFIED HYDRONEPHROSIS Qualifiers: Hydronephrosis type: unspecified Qualified Code(s): N13.30 - Unspecified hydronephrosis
--- NOTE | 2019-03-16 13:31 | OP ---
Operative Note - Note: Operative Date: 03/16/19 Pre-Operative Diagnosis: L hydronephrosis, L renal calculi, UTI, obstructed L JJ stent Operation: cystoscopy L JJ stent change Findings: L renal calculi Post-Operative Diagnosis: Same as Pre-op Surgeon: Saad Benitez Anesthesiologist/VICE PRESIDENT & GENERAL MANAGER [employer] [place]: Sami Ovalles Anesthesia: General Specimens Removed: L JJ stent Estimated Blood Loss (mls): 0 Drains & Tubes with Location: 6 fr 24 cm L JJ stent Operative Report Dictated: Yes
[2019-03-16] MEDS ORDERED: MIDAZOLAM HCL 2 MG/2 ML SINGLE DOSE VIAL ONE (13:43)
[2019-03-16] MEDS ORDERED: GENTAMICIN SO4 80 MG/2 ML VIAL ONE ×2 (14:04→14:19)
[2019-03-16] MEDS ORDERED: LIDOCAINE HCL/PF 2% SDV 5ML VIAL ONE (14:04)
[2019-03-16] MEDS ORDERED: PROPOFOL 20 ML ONE ×2 (14:04)
--- NOTE | 2019-03-16 14:04 | PN ---
Teaching Attending Note Name of Resident: Ana Sanders ATTENDING PHYSICIAN STATEMENT I saw and evaluated the patient. I reviewed the resident's note and discussed the case with the resident. I agree with the resident's findings and plan as documented. SUBJECTIVE: Left flank pain much improved. No fever/chills. No nausea/vomiting OBJECTIVE: Fever resolved, Tmax 99.9, hemodynamically Stable. Last Vital Signs Temp Pulse Resp BP Pulse Ox 98.2 F 63 20 128/78 100 03/16/19 10:00 03/16/19 10:00 03/16/19 10:00 03/16/19 10:03/16/19 09:00 Heart - S1, S2, RRR Lungs - clear to auscultation Abdomen - L flank pain/CVA tenderness improving. s/p L Nephrostomy draining clear urine. Soft abdomen. Bowel Sounds normal. Extremities- no edema, no calf tenderness. Laboratory Results - last 24 hr 03/15/19 03/16/19 03/16/19 10:50 07:00 07:00 WBC 8.3 RBC 2.77 L Hgb 8.6 L Hct 25.5 L MCV 92.0 MCH 31.1 MCHC 33.8 RDW 13.6 Plt Count 301 MPV 9.3 Absolute Neuts (auto) 5.7 Neutrophils % 67.9 Lymphocytes % 21.1 D Monocytes % 9.4 Eosinophils % 1.0 D Basophils % 0.6 Nucleated RBC % 0 Sodium 138 Potassium 3.5 Chloride 104 Carbon Dioxide 26 Anion Gap 8 BUN 4.3 L Creatinine 0.5 L Est GFR (CKD-EPI)AfAm 152.65 Est GFR (CKD-EPI)NonAf 131.71 Random Glucose 79 Calcium 8.4 L Phosphorus 2.8 Transferrin 210 Current Medications Generic Name Dose Route Start Last Admin Trade Name Freq PRN Reason Stop Dose Admin Acetaminophen 1,000 mg 03/13/19 17:21 03/14/19 01:30 Ofirmev Injection - IVPB 1,000 mg Q6H PRN Administration PAIN LEVEL 6-10 Docusate Sodium 100 mg 03/15/19 14:29 Colace - PO BID PRN CONSTIPATION Heparin Sodium (Porcine) 5,000 unit 03/14/19 22:00 03/16/19 05:29 Heparin - SQ Not Given TID AMEYA Piperacillin Sod/Tazobactam 100 mls @ 200 mls/hr 03/14/19 05:30 03/16/19 10: 17 Sod 4.5 gm/ Dextrose IVPB 200 mls/hr Q8H-IV AMEYA Administration Protocol Sodium Chloride 1,000 mls @ 75 mls/hr 03/15/19 22:45 03/15/19 22:48 Normal Saline - IV 75 mls/hr ASDIR AMEYA Administration Morphine Sulfate 2 mg 03/15/19 09:45 03/16/19 06:16 Morphine Sulfate IVPUSH 2 mg Q6H PRN Administration PAIN LEVEL 6-10 Ondansetron HCl 4 mg 03/14/19 21:17 03/15/19 08:32 Zofran Injection IVPUSH 4 mg Q6H PRN Administration NAUSEA AND/OR VOMITING Home Medications Medication Instructions Recorded NK [No Known Home Medication] 09/08/18 ASSESSMENT AND PLAN: 28 year old female with history of Nephrolithiasis (s/p lithotripsy with stent placement by Dr. Beau Lee) presents to the ED with left flank pain and fever. 1. Acute complicated UTI with Sepsis and Obstruction with L hydronephrosis CT A/P - Ureteral wall thickening suggestive of Ureteritis, moderate L Hydronephrosis with L JJ Stent in place. s/p IR guided L percutaneous nephrostomy 03/14 For Cystoscopy and L JJ Stent exchange 03/16 Urine Cx pos for EColi Continue Zosyn - recommend transition to bactrim for 7 days by ID on discharge. Medically clear for discharge after Cystoscopy/Stent placement and decision re: Nephrostomy reversal by IR. 2. Hypokalemia/Hypophosphatemia - resolved s/p repletion. 3. Iron Deficiency Anemia - etiology unclear. Iron Sat 5%. Will need gynecology eval as out-patient. Started on FeSO4 supplementation but declines as she does not tolerate the pills. Will give IV Venofer x 1. For out-patient follow up and H.H monitoring/further Venofer infusions. DVT Px - Heparin SQ.
[2019-03-16] MEDS ORDERED: GENTAMICIN SO4 80 MG/2 ML VIAL IVPB ONE (14:06)
[2019-03-16] MEDS ORDERED: IOHEXOL 300 MG/ML INFUS..BTL IV ONE (14:07)
[2019-03-16] MEDS ORDERED: DEXAMETHASONE SOD PHOSPHATE 4 MG/1 ML VIAL ONE (14:18)
[2019-03-16] MEDS ORDERED: KETOROLAC TROMETHAMINE 30 MG/1 ML VIAL ONE (14:18)
[2019-03-16] MEDS ORDERED: PROMETHAZINE HCL 25 MG/1 ML VIAL IVPUSH PRN (14:45)
[2019-03-16] MEDS ORDERED: ACETAMINOPHEN INJECTION 100 ML IVPB ONE (15:29)
[2019-03-16] MEDS ORDERED: ACETAMINOPHEN 1000 MG/100 ML VIAL (NON FORMULARY) IVPB ONE (15:30)
--- NOTE | 2019-03-16 16:00 | OP ---
DATE OF OPERATION: 03/16/2019 PREOPERATIVE DIAGNOSES: Left hydronephrosis, left renal calculi, urinary tract infection, obstructed left double-J stent. POSTOPERATIVE DIAGNOSES: Left hydronephrosis, left renal calculi, urinary tract infection, obstructed left double-J stent. PROCEDURE: Cystoscopy, left double-J stent change. SURGEON: Saad Iglesias MD PEANUT SALTER: None. ANESTHESIA: General via laryngeal mask. ANESTHESIOLOGIST: Sami Ovalles MD SPECIMENS: Left double-J stent. CULTURES: None. DRAINS: A 6-Stateless 24-cm left double-J stent. ESTIMATED BLOOD LOSS: None. COMPLICATIONS: None. DESCRIPTION OF PROCEDURE: Patient was brought in the operating room, placed on the operating table in supine position. After the administration of general anesthesia via laryngeal mask, intravenous antibiotics were administered. Sequential compression devices were placed. Patient was placed in dorsal lithotomy position. The vagina and perineum were prepped and draped in usual sterile manner. A 22-Stateless cystoscope was inserted into the bladder under direct vision. The urine was evacuated. A 30-degree telescope was inserted. Cystoscopy was performed. This demonstrated no tumors, stones, or inflammation. Both ureteral orifices were in their usual location with left double-J stent in the left ureteral orifice with some encrustations. Left double-J stent was grasped at its tip and removed. Now, the cystoscope was reintroduced, and the left ureteral orifice was cannulated with a 0.038 guidewire, advanced to the level of the left renal pelvis under fluoroscopic and direct visual guidance. Dual-lumen catheter was inserted. Retrograde pyelogram was done, demonstrated left renal calculi, left nephrostomy in good position. No additional hydronephrosis. The dual-lumen catheter was removed, and a 6-Stateless 24-cm left double-J stent was inserted over the guidewire under direct visual and fluoroscopic guidance, leaving 1 coil in the renal pelvis and 1 coil in the bladder. The bladder was emptied. Cystoscope removed. She tolerated the procedure well, transferred to recovery in stable condition. PLAN: We will keep the nephrostomy tube clamped overnight, and if she tolerates this and remains afebrile and without pain, without leakage around the nephrostomy tube, we will remove the nephrostomy tube under fluoroscopic guidance by Interventional Radiology. Then, she will be able to be discharged on oral antibiotics for followup in the office to schedule ESWL, left. SAAD IGLESIAS M.D. EULOGIO/[id number]
[2019-03-16] MEDS ORDERED: MORPHINE SULFATE 2 MG/ML VIAL IVPUSH PRN (16:45)
[2019-03-16] MEDS ORDERED: ONDANSETRON 4 MG/2 ML VIAL IVPUSH PRN (16:45)
[2019-03-16] MEDS ORDERED: ACETAMINOPHEN 1000 MG/100 ML VIAL (NON FORMULARY) IVPB PRN (16:45)
[2019-03-16] MEDS ORDERED: DOCUSATE SODIUM 100 MG CAPSULE (FP) PO PRN (16:45)
[2019-03-16] MEDS: SODIUM CHLORIDE 1,000 ML IV SCH (17:09)
[2019-03-16] MEDS: oxyCODONE HCL 5 MG TABLET PO PRN (17:18)
--- NOTE | 2019-03-16 20:55 | PN ---
Physical Exam: SUBJECTIVE: Patient seen and examined. She reports feeling better and pain is fairly well controlled. 4-5/10. She denies abdominal pain, n/v, fever, or chills. OBJECTIVE: Vital Signs Period Temp Pulse Resp BP Sys/Dukes Pulse Ox Last 24 Hr 97.6 F-98.9 F 49-87 18-20 102-133/52-88 97-100 GENERAL: The patient is awake, alert, and fully oriented, in no distress HEAD: Normal with no signs of trauma. EYES: PERRL, extraocular movements intact, sclera anicteric, conjunctiva clear. No ptosis. ENT: Ears normal, nares patent, moist mucous membranes. NECK: Trachea midline, full range of motion, supple. LUNGS: Breath sounds equal, clear to auscultation bilaterally, no wheezes, no crackles, no accessory muscle use. HEART: Regular rate and rhythm, S1, S2 without murmur, rub or gallop. ABDOMEN: Soft, nontender, nondistended, normoactive bowel sounds, BACK: non-tender to light palpation around tube site, not erythematous EXTREMITIES: 2+ pulses, warm, well-perfused, no edema. NEUROLOGICAL: Cranial nerves II through XII grossly intact. Normal speech, gait not observed. PSYCH: normal mood and affect SKIN: Warm, dry, normal turgor, no rashes or lesions noted Laboratory Results - last 24 hr 03/15/19 03/16/19 03/16/19 10:50 07:00 07:00 WBC 8.3 RBC 2.77 L Hgb 8.6 L Hct 25.5 L MCV 92.0 MCH 31.1 MCHC 33.8 RDW 13.6 Plt Count 301 MPV 9.3 Absolute Neuts (auto) 5.7 Neutrophils % 67.9 Lymphocytes % 21.1 D Monocytes % 9.4 Eosinophils % 1.0 D Basophils % 0.6 Nucleated RBC % 0 Sodium 138 Potassium 3.5 Chloride 104 Carbon Dioxide 26 Anion Gap 8 BUN 4.3 L Creatinine 0.5 L Est GFR (CKD-EPI)AfAm 152.65 Est GFR (CKD-EPI)NonAf 131.71 Random Glucose 79 Calcium 8.4 L Phosphorus 2.8 Transferrin 210 Active Medications Generic Name Dose Route Start Last Admin Trade Name Freq PRN Reason Stop Dose Admin Acetaminophen 1,000 mg 03/16/19 16:45 Ofirmev Injection - IVPB Q6H PRN PAIN LEVEL 6-10 Docusate Sodium 100 mg 03/16/19 16:45 Colace - PO BID PRN CONSTIPATION Heparin Sodium (Porcine) 5,000 unit 03/16/19 22:00 Heparin - SQ TID AMEYA Sodium Chloride 1,000 mls @ 75 mls/hr 03/16/19 16:45 03/16/19 17:09 Normal Saline - IV 75 mls/hr ASDIR AMEYA Administration Piperacillin Sod/Tazobactam 100 mls @ 200 mls/hr 03/16/19 18:00 03/16/19 17: 09 Sod 4.5 gm/ Dextrose IVPB 200 mls/hr Q8H-IV AMEYA Administration Protocol Morphine Sulfate 2 mg 03/16/19 16:45 Morphine Sulfate IVPUSH Q6H PRN PAIN LEVEL 6-10 Ondansetron HCl 4 mg 03/16/19 16:45 Zofran Injection IVPUSH Q6H PRN NAUSEA AND/OR VOMITING Oxycodone HCl 10 mg 03/16/19 14:45 03/16/19 17:18 Roxicodone - PO 03/17/19 14:44 10 mg Q4H PRN Administration PAIN LEVEL 6-10 ASSESSMENT/PLAN: Ms. Cristina is a 28yo female with PMH of nephrolithiasis s/p lithotripsy with stent placement 2013, and again 07/2018, who presents with complaint of left flank pain. Stent was still in place from earlier this year. #Acute complicated UTI CT abd/pelvis showed left ureteral stent with moderate-marked hydronephrosis, 9mm non-obstructing stone, and ureteritis. Urgent L perc nephrostomy tube inserted 2 days ago. Today cystoscopy and left double-J stent change performed. Tube is clamped. If pt remains afebrile overnight and no drainage, tube will be removed and pt can be d/c'ed on PO abx. -IV NS 100mL/hr -day 3 of Zosyn -urine cx E coli -neprostomy tube cx prelim non-lactose ferm GNB -pain control- oxycodone 5mg Q6H PRN -Zofran 4mg Q4H PRN -CBC -BMP #leukocytosis 19.5-->13.5-->8.3 -on abx -CBC #hypokalemia 3.5 after repleting yesterday #hypophosphatemia 2.8 after repleting yesterday #iron deficiency anemia Hb 9.9-->9.2-->8.6, iron 14, MCV 92 Pt reports GI upset with PO supplementation. -Venofer x 1 -f/u with heme for long-term tx FEN NS monitor K, Phos regular diet DVT Ppe heparin Dispo d/c to home tomorrow Visit type - Emergency Visit Emergency Visit: Yes ED Registration Date: 03/13/19 Care time: The patient presented to the Emergency Department on the above date and was hospitalized for further evaluation of their emergent condition. - New Patient This patient is new to me today: No - Critical Care Critical Care patient: No - Discharge Referral Referred to [facility] Med P.C.: No ATTENDING PHYSICIAN STATEMENT I saw and evaluated the patient. I reviewed the resident's note and discussed the case with the resident. I agree with the resident's findings and plan as documented. SUBJECTIVE: OBJECTIVE: ASSESSMENT AND PLAN:
[2019-03-16] MEDS ORDERED: HEPARIN NA (PORCINE) 5,000 UNITS/ML 1ML VIAL SQ SCH (22:00)
[2019-03-17] MEDS ORDERED: PIPERACILLIN/TAZOBACTAM 4.5 GM VIAL IVPB ONE ×2 (00:51→09:25)
[2019-03-17] MEDS ORDERED: DEXTROSE 5%-WATER 100 ML IVPB ONE ×2 (00:52→09:25)
[2019-03-17] MEDS: PIPERACILLIN/TAZOB 4.5 GM 4.5 GM in DEXTROSE 5%-WATER 100 ML IVPB SCH ×2 (01:04→09:37)
[2019-03-17] MEDS: oxyCODONE HCL 5 MG TABLET PO PRN (02:50)
[2019-03-17] MEDS: SODIUM CHLORIDE 1,000 ML IV SCH (06:41)
[2019-03-17 08:01] LABS: CALCIUM 8.6 mg/dL (8.5-10.1); CREATININE 0.5 mg/dL (0.55-1.3)
[2019-03-17 08:03] LABS: BASO % 0.3 % (0-2.0); EOS % 0.4 % (0-4.5); HEMATOCRIT 29.7 % (32.4-45.2); HEMOGLOBIN 9.9 GM/dL (10.7-15.3); LYMPH % 17.8 % (8-40); MCH 30.7 pg (25.7-33.7); MCHC 33.2 g/dl (32.0-36.0); MEAN CELL VOLUME 92.4 fl (80-96); MEAN PLT VOLUME 9.6 fl (7.5-11.1); MONO % 8.3 % (3.8-10.2); NEUT % 73.2 % (42.8-82.8); PLATELET COUNT 330 K/MM3 (134-434); RBC 3.22 M/mm3 (3.60-5.2); RDW 13.3 % (11.6-15.6); WHITE BLOOD COUNT 11.2 K/mm3 (4.0-10.0)
[2019-03-17 10:01] VITALS: BP 138/74; PULSE 82; TEMP 98.4
--- NOTE | 2019-03-17 10:02 | DS ---
Physical Exam: SUBJECTIVE: Patient seen and examined at bedside this morning. She is POD #1 s/ p left JJ stent exchange, left sided nephrostomy tube clamped. Patient endorses no acute complaints. OBJECTIVE: Vital Signs Period Temp Pulse Resp BP Sys/Dukes Pulse Ox Last 24 Hr 97.6 F-98.6 F 49-82 18-20 102-138/52-87 97-100 PHYSICAL EXAM GENERAL: The patient is awake, alert, and fully oriented, in no acute distress. HEAD: Normal with no signs of trauma. EYES: PERRL, extraocular movements intact, sclera anicteric, conjunctiva clear. ENT: Oropharynx clear without exudates, moist mucous membranes. NECK: Trachea midline, full range of motion, supple. LUNGS: Breath sounds equal, clear to auscultation bilaterally, no wheezes, no crackles, no accessory muscle use. HEART: Regular rate and rhythm, S1, S2 without murmur, rub or gallop. ABDOMEN: Soft, nontender, nondistended, normoactive bowel sounds, no guarding, no rebound, no hepatosplenomegaly, no masses. EXTREMITIES: 2+ pulses, warm, well-perfused, no edema. NEUROLOGICAL: Cranial nerves II through XII grossly intact. Normal speech, gait not observed. PSYCH: Normal mood, normal affect. SKIN: Warm, dry. Left sided nephrostomy tube clamped. LABS Laboratory Results - last 24 hr 03/15/19 03/17/19 03/17/19 10:50 07:00 07:00 WBC 11.2 H RBC 3.22 L Hgb 9.9 L Hct 29.7 L D MCV 92.4 MCH 30.7 MCHC 33.2 RDW 13.3 Plt Count 330 MPV 9.6 Absolute Neuts (auto) 8.2 H Neutrophils % 73.2 Lymphocytes % 17.8 Monocytes % 8.3 Eosinophils % 0.4 Basophils % 0.3 Nucleated RBC % 0 Sodium 138 Potassium 4.0 Chloride 105 Carbon Dioxide 25 Anion Gap 8 BUN 10.0 Creatinine 0.5 L Est GFR (CKD-EPI)AfAm 152.65 Est GFR (CKD-EPI)NonAf 131.71 Random Glucose 91 Calcium 8.6 Transferrin 210 HOSPITAL COURSE: Date of Admission:03/13/19 Date of Discharge: 03/17/19 Patient is a 28 year old female with history of nephrolithiasis (s/p lithotripsy with stent placement with Barbara Lee in 2013, and again in 2018) presented with complaint of left flank pain. CT abdomen, pelvis revealed left ureteral stent with moderate-marked hydronephrosis, non obstructing stone ( 9mm), and ureteritis. Patient was evaluated by infectious disease physician, and was treated with Zosyn. Urine culture grew E. coli. Patient was noted to have iron deficiency anemia, and unable to tolerate oral iron suplements. Treated with IV Venofir. Patient was evaluated by urology and underwent left sided nephrostomy tube placement, followed by left sided JJ stent exchange. Nephrostomy tube was clamped by Urology, and patient discharged to follow up with interventional radiology for removal of nephrostomy tube. Appointment provided to patient. Further follow up with Urology, Gynecology, and Hematology provided to patient. Discharged with 7 day course of Bactrim, with ID recommendation. Minutes to complete discharge: 35 Discharge Summary Reason For Visit: URINARY TRACT INFECTION/CALCULUS OF KIDNEY Current Active Problems Fever (Acute) Hydronephrosis (Acute) Retained ureteral stent (Acute) UTI (urinary tract infection) (Acute) Ureteral stent occlusion (Acute) Calculus of kidney (Chronic) Condition: Stable - Instructions Diet, Activity, Other Instructions: Your Hospital Visit: You were admitted to the hospital because you had a urinary tract infection and extra fluid in your kidney from a kidney stone. You had a tube placed to help drain your kidney and you also had your stent removed and a new one placed. You were also treated with IV antibiotics for the infection. Medications: You were prescribed the antibiotic Bactrim to take for 7 days. Follow up: You will follow up with Interventional Radiology (Dr. Carpio) on TuesdayMarch 21 at 11AM in Radiology floor (S1) of [facility] to remove the nephrostomy tube. You will follow up with Dr. Benitez to monitor your stent. Follow up within one week of hospital discharge. Please follow up with your primary care doctor within 1 week of discharge. Follow up with director of dementia operations physician within one week. A referral has been provided. Please follow up for low iron level/anemia with Dr. Fajardo for Iron transfusions within one week of discharge. Other instructions: Please go to the nearest emergency room if you have extreme back pain, severe nausea and vomiting, pain or bleeding with urination, or fever above 101F. Referrals: Lisa Perez MD [Staff Physician] - 1 Week Marvin Fajardo MD [Staff Physician] - 1 Week Ti Connors MD [Staff Physician] - 03/21/19 11:00 am Saad Benitez MD [Staff Physician] - 03/21/19 Disposition: HOME - Home Medications Comprehensive Discharge Medication List: Ambulatory Orders Miscellaneous Medical Supply [Outpatient Order] 1 each ASDIR #1 misc Sulfamethoxazole/Trimethoprim [Bactrim Ds -] 1 tab PO BID 7 Days #14 tablet This patient is new to me today: No Emergency Visit: Yes ED Registration Date: 03/13/19 Care time: The patient presented to the Emergency Department on the above date and was hospitalized for further evaluation of their emergent condition. Critical Care patient: No - Discharge Referral Referred to [facility] Med P.C.: No ATTENDING PHYSICIAN STATEMENT I saw and evaluated the patient. I reviewed the resident's note and discussed the case with the resident. I agree with the resident's findings and plan as documented. SUBJECTIVE: OBJECTIVE: ASSESSMENT AND PLAN:
--- NOTE | 2019-03-17 16:25 | PN ---
Teaching Attending Note Name of Resident: Kenneth Quijano ATTENDING PHYSICIAN STATEMENT I saw and evaluated the patient. I reviewed the resident's note and discussed the case with the resident. I agree with the resident's findings and plan as documented. SUBJECTIVE: Left flank pain resolved. No fever/chills. No nausea/vomiting OBJECTIVE: Fever resolved, Hemodynamically Stable. Last Vital Signs Temp Pulse Resp BP Pulse Ox 98.4 F 82 20 138/74 100 03/17/19 10:00 03/17/19 10:00 03/17/19 10:03/17/19 10:00 03/17/19 09:00 Heart - S1, S2, RRR Lungs - clear to auscultation Abdomen - L flank pain/CVA tenderness improved. s/p L Nephrostomy, currently clamped. Soft abdomen. Bowel Sounds normal. Extremities - no edema, no calf tenderness. Laboratory Results - last 24 hr 03/17/19 03/17/19 07:00 07:00 WBC 11.2 H RBC 3.22 L Hgb 9.9 L Hct 29.7 L D MCV 92.4 MCH 30.7 MCHC 33.2 RDW 13.3 Plt Count 330 MPV 9.6 Absolute Neuts (auto) 8.2 H Neutrophils % 73.2 Lymphocytes % 17.8 Monocytes % 8.3 Eosinophils % 0.4 Basophils % 0.3 Nucleated RBC % 0 Sodium 138 Potassium 4.0 Chloride 105 Carbon Dioxide 25 Anion Gap 8 BUN 10.0 Creatinine 0.5 L Est GFR (CKD-EPI)AfAm 152.65 Est GFR (CKD-EPI)NonAf 131.71 Random Glucose 91 Calcium 8.6 Home Medications Medication Instructions Recorded Miscellaneous Medical Supply 1 each ASDIR #1 misc 03/16/19 [Outpatient Order] Sulfamethoxazole/Trimethoprim 1 tab PO BID 7 Days #14 tablet 03/16/19 [Bactrim Ds -] ASSESSMENT AND PLAN: 28 year old female with history of Nephrolithiasis (s/p lithotripsy with stent placement by Dr. Beau Lee) presents to the ED with left flank pain and fever. 1. Acute complicated UTI with Sepsis and Obstruction with L hydronephrosis CT A/P - Ureteral wall thickening suggestive of Ureteritis, moderate L Hydronephrosis with L JJ Stent in place. s/p IR guided L percutaneous nephrostomy 03/14 s/p Cystoscopy and L JJ Stent exchange 03/16 Urine Cx pos for EColi Received IV Zosyn as in-patient, for transition to Bactrim for 7 days on discharge Medically clear for discharge - for Nephrostomy reversal by IR on March,. 2. Hypokalemia/Hypophosphatemia - resolved s/p repletion. 3. Iron Deficiency Anemia - etiology unclear. Iron Sat 5%. Will need gynecology eval as out-patient. Started on FeSO4 supplementation but declines as she does not tolerate the pills. Received IV Venofer x 1. For out-patient follow up and H/H monitoring/further Venofer infusions. Medically stable for discharge on Bactrim with urology, IR, and Gyne follow up.
--- NOTE | 2019-03-27 16:03 | PATH ---
Surgical Pathology Report Patient Name: OSCAR SHIPMAN Med. Rec. #: [id number] /Age/Gender: 1990 (Age: 28) / F Account: [id number] Location: [facility] MED/SURG Taken: 03/16/2019 Received: 03/20/2019 Reported: 03/27/2019 Physicians: MD Saad Jameson M.D. Specimen(s) Received LEFT STENT REMOVAL Clinical History Urinary tract infection Final Diagnosis LEFT J STENT, REMOVAL: STENT, DESCRIBED (GROSS EXAMINATION ONLY). Electronically Signed Jenny Flor M.D. Gross Description Received without fixative, labeled "left J stent" is a 30 cm long portion of stent with a diameter of 0.2 cm. Gross examination only. AE/03/27/2019 ebram/03/27/2019
== END 2019-03-17 11:46 | disposition home or self-care (01) | DRG 443 ==
LOC: JER 11:25 → JERBED 15:31 → J8W 18:32
PROVIDERS: ADMIT Internal Medicine
PROC: 0TP93DZ Removal of Intraluminal Device from Ureter, Percutaneous Approach (ICD-10-PCS; 2019-03-16)
PROC: BT1BZZZ Fluoroscopy of Bladder and Urethra (ICD-10-PCS; 2019-03-16)
PROC: 0TP98DZ Removal of Intraluminal Device from Ureter, Via Natural or Artificial Opening Endoscopic (ICD-10-PCS; principal; 2019-03-16 12:00)
PROC: 0T778DZ Dilation of Left Ureter with Intraluminal Device, Via Natural or Artificial Opening Endoscopic (ICD-10-PCS; 2019-03-16 12:00)
DX: T83.192A Other mechanical complication of indwelling ureteral stent, initial encounter (principal); A41.59 Other Gram-negative sepsis; D50.0 Iron deficiency anemia secondary to blood loss (chronic); E83.39 Other disorders of phosphorus metabolism; N13.6 Pyonephrosis; K59.09 Other constipation; Z96.0 Presence of urogenital implants; Y84.8 Other medical procedures as the cause of abnormal reaction of the patient, or of later complication, without mention of misadventure at the time of the procedure; R68.83 Chills (without fever); R11.10 Vomiting, unspecified; D72.829 Elevated white blood cell count, unspecified; E87.6 Hypokalemia
CPT/HCPCS: 36415; 50432; 74176-TC; 76098-TC-FY; 76942-TC; 80048; 80053; 81003; 82728; 83540; 83550; 83605; 83735; 84100; 84466; 84703; 85025; 85027; 85044; 85610; 85730; 86850; 86900; 86901; 87040; 87086; 87186; 87899; 88300-TC; 94760; 99283-25; A4358; C1729; C1769; J0131; J1644; J1756; J7030

== ENCOUNTER → 2019-03-21 | Day surgery (SDC) | payer OTHER | LOC: JRADIR 11:13 ==

== ENCOUNTER 2019-04-18 18:15 | Emergency (ER) | payer OTHER ==
--- NOTE | 2019-04-18 18:19 | PDOC ---
Rapid Medical Evaluation Time Seen by Provider: 04/18/19 18:17 Medical Evaluation: Allergies Allergy/AdvReac Type Severity Reaction Status Date / Time No Known Allergies Allergy Verified 03/13/19 11:29 04/18/19 18:17 CC: suprapubic pressure. has ureteral stents placed 03/05 PE: suprapubic tenderness Orders: urine, labs Patient will proceed to ER for further evaluation. Discharge Disposition - Diagnosis Suprapubic pain - Referrals - Patient Instructions - Post Discharge Activity
[2019-04-18 18:20] VITALS: TEMP 98.7; BMI 23.2
[2019-04-18] MEDS ORDERED: SODIUM CHLORIDE 1,000 ML IV STA (18:46)
[2019-04-18 19:08] LABS: BASO % 0.8 % (0-2.0); EOS % 0.7 % (0-4.5); HEMOGLOBIN 12.6 GM/dL (10.7-15.3); LYMPH % 33.9 % (8-40); MCH 31.3 pg (25.7-33.7); MCHC 33.1 g/dl (32.0-36.0); MEAN CELL VOLUME 94.5 fl (80-96); MEAN PLT VOLUME 9.1 fl (7.5-11.1); MONO % 5.8 % (3.8-10.2); NEUT % 58.8 % (42.8-82.8); PLATELET COUNT 306 K/MM3 (134-434); RBC 4.02 M/mm3 (3.60-5.2); RDW 14.1 % (11.6-15.6); WHITE BLOOD COUNT 9.4 K/mm3 (4.0-10.0)
[2019-04-18 19:38] LABS: BLOOD UREA NITROGEN 9.8 mg/dL (7-18); CREATININE 0.7 mg/dL (0.55-1.3); POTASSIUM 4.1 mmol/L (3.5-5.1)
[2019-04-18 19:40] LABS: HYALINE CASTS 5 /lpf (0-8); URINE APPEARANCE CLOUDY; URINE BACTERIA 119.9 /hpf (NEGATIVE); URINE BILIRUBIN NEGATIVE (NEGATIVE); URINE COLOR YELLOW; URINE GLUCOSE (UA) NEGATIVE (NEGATIVE); URINE KETONE NEGATIVE (NEGATIVE); URINE LEUK ESTERASE 3+ (NEGATIVE); URINE NITRITE POSITIVE (NEGATIVE); URINE PROTEIN 3+ (NEGATIVE); URINE RBC 615 /hpf (0-4); URINE WBC 703 /hpf (0-5)
--- NOTE | 2019-04-18 19:40 | PDOC ---
History of Present Illness - General Chief Complaint: Pain Stated Complaint: abd pain, recent kidney stent Time Seen by Provider: 04/18/19 18:17 History Source: Patient Exam Limitations: No Limitations Past History - Past Medical History Allergies/Adverse Reactions: Allergies Allergy/AdvReac Type Severity Reaction Status Date / Time No Known Allergies Allergy Verified 04/18/19 18:20 Home Medications: Ambulatory Orders Cephalexin Monohydrate [Keflex -] 500 mg PO BID #12 capsule 04/18/19 Anemia: Yes Asthma: No Cancer: No Cardiac Disorders: No CVA: No COPD: No CHF: No DVT: No Dementia: No Diabetes: No GI Disorders: No Disorders: Yes (renal stones,s/p stent placement to left side ()) HTN: No Hypercholesterolemia: No Kidney Stones: Yes Liver Disease: No Seizures: No Thyroid Disease: No - Reproductive History Therapeutic (s) & number: Yes - Immunization History Immunization Up to Date: Yes - Psycho Social/Smoking Cessation Hx Smoking History: Never smoked Have you smoked in the past 12 months: No Information on smoking cessation initiated: No Hx Alcohol Use: No Drug/Substance Use Hx: No Substance Use Type: Alcohol Hx Substance Use Treatment: No *Physical Exam - Vital Signs Last Vital Signs Temp Pulse Resp BP Pulse Ox 98.7 F 68 19 135/72 99 04/18/19 18:18 04/18/19 18:18 04/18/19 18:18 04/18/19 18:18 04/18/19 18:18 - Physical Exam General Appearance: No: Apparent Distress Respiratory/Chest: positive: Lungs Clear, Normal Breath Sounds. negative: Respiratory Distress Cardiovascular: positive: Regular Rhythm, Regular Rate, S1, S2. negative: Murmur Gastrointestinal/Abdominal: positive: Normal Bowel Sounds, Tender (mild suprapubic tenderness), Soft. negative: Distended, Guarding, Rebound Musculoskeletal: negative: CVA Tenderness Neurologic: positive: Alert, Normal Mood/Affect ED Treatment Course - LABORATORY CBC & Chemistry Diagram: 04/18/19 18:55 04/18/19 18:55 - ADDITIONAL ORDERS Additional order review: 04/18/19 18:55 RBC 4.02 MCV 94.5 MCHC 33.1 RDW 14.1 MPV 9.1 Neutrophils % 58.8 Lymphocytes % 33.9 D Monocytes % 5.8 Eosinophils % 0.7 Basophils % 0.8 Medical Decision Making - Medical Decision Making 28 y/o F hx of kidney stones s/p lithotripsy with stent placement 2013, again 2018, recently admitted 02/2019 with revision of L sided stent due to obstruction and infection) presents with suprapubic discomfort x 1.5 weeks along with increased urinary frequency and urgency. States it does not necessarily burn with urination but does feel pain. Also with occasional noting small amount of blood in urine. Denies fever, sob, cp, flank pain, n/v/d. Probable UTI; less suspicious for pyelo Plan: labs, urine, IVF 04/18/19 19:35 UA positive - given dose of IV ceftriaxone Prior urine cultures reviewed (patient has had different organisms grow in urine ; drug of choice determined based on most recent urine culture) stable for dc 04/18/19 19:49 Discharge - Discharge Information Problems reviewed: Yes Clinical Impression/Diagnosis: UTI (urinary tract infection) Qualifiers: Urinary tract infection type: acute cystitis Hematuria presence: with hematuria Qualified Code(s): N30.01 - Acute cystitis with hematuria Condition: Stable Disposition: HOME - Admission No - Additional Discharge Information Prescriptions: Cephalexin Monohydrate [Keflex -] 500 mg PO BID #12 capsule Prescription Drug Monitoring Program (I-STOP) results: I-STOP not reviewed - Follow up/Referral - Patient Discharge Instructions Patient Printed Discharge Instructions: DI for Urinary Tract Infection (UTI) Additional Instructions: Thank you for choosing [facility]. It was a pleasure taking care of you. You were seen for urine infection Please take antibiotics as prescribed Drink at least 2-3L of water per day Be sure to void after intercourse Follow-up with your doctor in 2 days Return to the Emergency Department if your symptoms worsen or persist or have other concerning symptoms. - Post Discharge Activity
[2019-04-18] MEDS ORDERED: CEFTRIAXONE 1 GM in DEXTROSE 5%-WATER - 100 ML IVPB ONE (19:41)
[2019-04-18] MEDS ORDERED: CEFTRIAXONE 1 GM/50 ML BAG ONE (19:50)
[2019-04-18 21:29] VITALS: BP 113/73; PULSE 63
== END 2019-04-18 21:30 | disposition home or self-care (01) ==
LOC: JER 18:15
PROC: 3E03329 Introduction of Other Anti-infective into Peripheral Vein, Percutaneous Approach (ICD-10-PCS; principal; 2019-04-18)
PROC: 3E0337Z Introduction of Electrolytic and Water Balance Substance into Peripheral Vein, Percutaneous Approach (ICD-10-PCS; 2019-04-18)
DX: N30.01 Acute cystitis with hematuria (principal)
CPT/HCPCS: 36415; 80048; 81003; 84703; 85025; 87086; 87186; 96361; 96365; 99285-25; J7030

== ENCOUNTER 2020-02-12 04:37 | Day surgery (SDC) | payer OTHER ==
[2020-02-11 13:23] VITALS: BMI 24.7
[2020-02-12 06:50] VITALS: TEMP 97.8
[2020-02-12] MEDS ORDERED: PROPOFOL 20 ML ONE (07:47)
[2020-02-12] MEDS ORDERED: MIDAZOLAM HCL 2 MG/2 ML SINGLE DOSE VIAL ONE (07:48)
--- NOTE | 2020-02-12 07:51 | HP ---
History & Physical Update - History History: No Change - Physical Physical: No Change - Assessment Assessment: No Change - Plan Plan: No Change
--- NOTE | 2020-02-12 07:52 | OP ---
Operative Note - Note: Operative Date: 02/12/20 Pre-Operative Diagnosis: L renal calculus Operation: ESWL L Surgeon: Saad Benitez Anesthesiologist/TEMPORARY STAFF ACCOUNTANT: Shun Padilla Anesthesia: MAC Estimated Blood Loss (mls): 0 Operative Report Dictated: Yes
[2020-02-12] MEDS ORDERED: SODIUM CHLORIDE 0.9% P/F 10 ML VIAL IJ ONE (08:00)
[2020-02-12] MEDS ORDERED: LIDOCAINE HCL/PF 2% SDV 5ML VIAL ONE (08:00)
[2020-02-12] MEDS ORDERED: ceFAZolin SODIUM 1 GM VIAL ONE (08:00)
[2020-02-12] MEDS ORDERED: ceFAZolin SODIUM 1 GM VIAL IVPB ONE (08:02)
[2020-02-12] MEDS ORDERED: KETOROLAC TROMETHAMINE 30 MG/1 ML VIAL ONE (08:07)
[2020-02-12 11:51] VITALS: BP 100/57; PULSE 61
--- NOTE | 2020-02-12 20:19 | OP ---
DATE OF OPERATION: 02/12/2020 PREOPERATIVE DIAGNOSIS: Left renal calculus. POSTOPERATIVE DIAGNOSIS: Left renal calculus. PROCEDURE: Extracorporeal shockwave lithotripsy, left renal calculus. SURGEON: Saad Iglesias MD. AGRICULTURAL EDUCATION INSTRUCTOR: None. ANESTHESIA: IV sedation. ANESTHESIOLOGIST: Shun Padilla MD. SPECIMENS: None. CULTURES: None. DRAINS: Left Double J stent. ESTIMATED BLOOD LOSS: None. COMPLICATIONS: None. DESCRIPTION OF PROCEDURE: The patient was brought in the operating room, placed on the operating table in a supine position. After administration of intravenous sedation, intravenous antibiotics were administered. Patient was positioned over the treatment head, and under fluoroscopic guidance a 1-cm left renal calculus was identified, targeted, and 2500 shocks at maximum total voltage with excellent fragmentation. Left Double J stent was in good position. She tolerated the procedure well. She was transferred to recovery in stable condition. She will be followed up in the office in 1 week for stent removal. SAAD IGLESIAS M.D. [id number]
== END 2020-02-12 11:00 | disposition home or self-care (01) ==
LOC: JASU-SURG 04:37
PROVIDERS: ATTEND Urology
PROC: 0TF4XZZ Fragmentation in Left Kidney Pelvis, External Approach (ICD-10-PCS; principal; 2020-02-12 08:00)
DX: N20.0 Calculus of kidney (principal)
CPT/HCPCS: 84703

== ENCOUNTER 2020-11-26 11:14 | Emergency (ER) | payer OTHER ==
[2020-11-26 11:31] VITALS: BP 134/72; PULSE 79; TEMP 98.4; BMI 24.7
[2020-11-26] MEDS ORDERED: SODIUM CHLORIDE 0.9% 500 ML INFUS.BAG IV ONE (12:50)
[2020-11-26] MEDS ORDERED: ACETAMINOPHEN 1000 MG/100 ML VIAL (NON FORMULARY) IVPB ONE (12:50)
[2020-11-26] MEDS ORDERED: ACETAMINOPHEN INJECTION 100 ML IVPB ONE (13:00)
[2020-11-26 13:32] LABS: BASO % 0.3 % (0-2.0); EOS % 0.3 % (0-4.5); HEMATOCRIT 39.9 % (32.4-45.2); HEMOGLOBIN 13.3 GM/dL (10.7-15.3); LYMPH % 21.7 % (8-40); MCH 32.7 pg (25.7-33.7); MCHC 33.2 g/dl (32.0-36.0); MEAN CELL VOLUME 98.3 fl (80-96); MEAN PLT VOLUME 9.5 fl (7.5-11.1); MONO % 6.1 % (3.8-10.2); NEUT % 71.6 % (42.8-82.8); PLATELET COUNT 317 K/MM3 (134-434); RBC 4.06 M/mm3 (3.60-5.2); WHITE BLOOD COUNT 13.4 K/mm3 (4.0-10.0)
[2020-11-26 13:54] LABS: INR 1.01 (0.83-1.09); PH,URINE 6.5 (5.0-8.0); PROTHROMBIN TIME (PATIENT) 12.4 SEC (9.7-13.0); URINE APPEARANCE CLEAR; URINE BILIRUBIN NEGATIVE (NEGATIVE); URINE COLOR YELLOW; URINE GLUCOSE (UA) NEGATIVE (NEGATIVE); URINE KETONE NEGATIVE (NEGATIVE); URINE LEUK ESTERASE NEGATIVE (NEGATIVE); URINE NITRITE NEGATIVE (NEGATIVE); URINE PROTEIN NEGATIVE (NEGATIVE); URINE UROBILINOGEN 0.2 mg/dL (0.2-1.0)
[2020-11-26 13:57] LABS: ACTIVATED PTT 29.9 SECONDS (25.2-36.5)
[2020-11-26 14:28] LABS: CALCIUM 9.1 mg/dL (8.5-10.1)
[2020-11-26 14:29] LABS: ALBUMIN 4.2 g/dl (3.4-5.0); BLOOD UREA NITROGEN 8.6 mg/dL (7-18)
[2020-11-26 14:32] LABS: CREATININE 0.5 mg/dL (0.55-1.3)
[2020-11-26 14:34] LABS: BILIRUBIN,TOTAL 0.5 mg/dL (0.2-1); TOT PROT 8.3 g/dl (6.4-8.2)
[2020-11-26] MEDS ORDERED: ONDANSETRON 4 MG/2 ML VIAL IVPUSH ONE (15:32)
[2020-11-26] MEDS ORDERED: ONDANSETRON 4 MG/2 ML VIAL ONE (15:34)
== END 2020-11-26 15:45 | disposition home or self-care (01) ==
LOC: JERFT 11:14
PROC: 3E0333Z Introduction of Anti-inflammatory into Peripheral Vein, Percutaneous Approach (ICD-10-PCS; principal; 2020-11-26)
PROC: 3E033GC Introduction of Other Therapeutic Substance into Peripheral Vein, Percutaneous Approach (ICD-10-PCS; 2020-11-26)
DX: N13.30 Unspecified hydronephrosis (principal)
CPT/HCPCS: 36415; 76775-TC; 76817-TC; 80053; 81003; 84702; 85025; 85610; 85730; 87086; 99285-25; J0131

== ENCOUNTER 2021-02-14 05:38 | Inpatient (IN) | payer OTHER ==
[2021-02-14] MEDS ORDERED: ACETAMINOPHEN 1000 MG/100 ML VIAL (NON FORMULARY) IVPB ONE (05:44)
[2021-02-14] MEDS ORDERED: LACTATED RINGERS SOLUTION 1000 ML INFUS.BAG IV ONE ×2 (05:44→06:42)
[2021-02-14] MEDS ORDERED: morphine CARPU-JECT 2 MG/1 ML DISP.SYRIN IVPUSH ONE ×3 (05:44→07:03)
[2021-02-14] MEDS ORDERED: MORPHINE SULFATE 2 MG/ML VIAL ONE ×4 (05:51→14:17)
[2021-02-14] MEDS ORDERED: ACETAMINOPHEN INJECTION 100 ML IVPB ONE (05:51)
[2021-02-14 05:56] LABS: EOS % 1.2 % (0-4.5); HEMATOCRIT 35.1 % (32.4-45.2); HEMOGLOBIN 12.2 GM/dL (10.7-15.3); LYMPH % 21.8 % (8-40); MCH 33.4 pg (25.7-33.7); MCHC 34.8 g/dl (32.0-36.0); MEAN CELL VOLUME 96.1 fl (80-96); MEAN PLT VOLUME 9.5 fl (7.5-11.1); MONO % 5.6 % (3.8-10.2); NEUT % 70.4 % (42.8-82.8); PLATELET COUNT 315 10^3/uL (134-434); RBC 3.65 M/mm3 (3.60-5.2); RDW 12.6 % (11.6-15.6); WHITE BLOOD COUNT 11.5 K/mm3 (4.0-10.0)
[2021-02-14 06:16] LABS: ALBUMIN 2.8 g/dl (3.4-5.0); BLOOD UREA NITROGEN 11.7 mg/dL (7-18); CALCIUM 8.2 mg/dL (8.5-10.1)
[2021-02-14 06:19] LABS: CREATININE 0.5 mg/dL (0.55-1.3)
[2021-02-14 06:21] LABS: BILIRUBIN,TOTAL 0.2 mg/dL (0.2-1); TOT PROT 7.1 g/dl (6.4-8.2)
[2021-02-14] MEDS ORDERED: METOCLOPRAMIDE HCL INJECTION 10 MG/2 ML VIAL IVPUSH ONE (08:03)
[2021-02-14] MEDS ORDERED: METOCLOPRAMIDE HCL INJECTION 10 MG/2 ML VIAL ONE (08:03)
[2021-02-14] MEDS ORDERED: morphine CARPU-JECT 4 MG/1 ML DISP.SYRIN IVPUSH ONE (08:36)
[2021-02-14] MEDS ORDERED: morphine SULFATE 4 MG/ML VIAL ONE (08:41)
[2021-02-14 08:59] LABS: EPI CELLS >36 /uL (0-25.1); HYALINE CASTS 1 /uL (0-3.1); PH,URINE 5.5 (5.0-8.0); URINE APPEARANCE CLEAR; URINE BACTERIA 1013 /uL (0-1359); URINE BILIRUBIN NEGATIVE (NEGATIVE); URINE COLOR YELLOW; URINE GLUCOSE (UA) NEGATIVE (NEGATIVE); URINE KETONE NEGATIVE (NEGATIVE); URINE LEUK ESTERASE NEGATIVE (NEGATIVE); URINE NITRITE NEGATIVE (NEGATIVE); URINE PROTEIN NEGATIVE (NEGATIVE); URINE RBC 4 /uL (0-23.9); URINE UROBILINOGEN 0.2 mg/dL (0.2-1.0); URINE WBC 18 /uL (0-25.8)
[2021-02-14 10:16] LABS: EPI CELLS 14 /uL (0-25.1); HYALINE CASTS 0 /uL (0-3.1); PH,URINE 6.5 (5.0-8.0); URINE APPEARANCE CLEAR; URINE BACTERIA 373 /uL (0-1359); URINE BILIRUBIN NEGATIVE (NEGATIVE); URINE COLOR YELLOW; URINE GLUCOSE (UA) NEGATIVE (NEGATIVE); URINE KETONE NEGATIVE (NEGATIVE); URINE LEUK ESTERASE NEGATIVE (NEGATIVE); URINE NITRITE NEGATIVE (NEGATIVE); URINE PROTEIN NEGATIVE (NEGATIVE); URINE RBC 13 /uL (0-23.9); URINE UROBILINOGEN 0.2 mg/dL (0.2-1.0); URINE WBC 17 /uL (0-25.8)
[2021-02-14] MEDS ORDERED: CEFTRIAXONE 1 GM/50 ML BAG ONE (11:17)
[2021-02-14] MEDS ORDERED: MORPHINE SULFATE 2 MG/ML VIAL IVPUSH PRN ×2 (11:56→15:59)
[2021-02-14] MEDS ORDERED: ACETAMINOPHEN 1000 MG/100 ML VIAL (NON FORMULARY) IVPB PRN (11:59)
[2021-02-14] MEDS ORDERED: SODIUM CHLORIDE 1,000 ML IV SCH ×2 (12:00→15:59)
[2021-02-14] MEDS ORDERED: PROMETHAZINE HCL 25 MG/1 ML VIAL IVPUSH PRN (14:15)
[2021-02-14] MEDS ORDERED: ONDANSETRON 4 MG/2 ML VIAL IVPUSH PRN ×2 (14:15→15:59)
[2021-02-14] MEDS ORDERED: LACTATED RINGERS SOLUTION 1,000 ML IV SCH (14:15)
[2021-02-14 15:00] LABS: INR 1.01 (0.83-1.09); PROTHROMBIN TIME (PATIENT) 12.2 SEC (9.7-13.0)
[2021-02-14 15:03] LABS: ACTIVATED PTT 30.4 SECONDS (25.2-36.5)
[2021-02-14] MEDS: LACTATED RINGERS SOLUTION 1,000 ML IV SCH (17:35)
[2021-02-14 18:27] VITALS: BMI 24.0
[2021-02-15] MEDS: ACETAMINOPHEN 1000 MG/100 ML VIAL (NON FORMULARY) IVPB PRN ×2 (02:04→09:25)
[2021-02-15] MEDS: LACTATED RINGERS SOLUTION 1,000 ML IV SCH (02:08)
[2021-02-15 08:41] LABS: BASO % 0.3 % (0-2.0); EOS % 0.8 % (0-4.5); HEMATOCRIT 31.7 % (32.4-45.2); LYMPH % 19.5 % (8-40); MCH 33.4 pg (25.7-33.7); MCHC 34.7 g/dl (32.0-36.0); MEAN CELL VOLUME 96.2 fl (80-96); MEAN PLT VOLUME 9.2 fl (7.5-11.1); MONO % 5.2 % (3.8-10.2); NEUT % 74.2 % (42.8-82.8); PLATELET COUNT 291 10^3/uL (134-434); RBC 3.29 M/mm3 (3.60-5.2); RDW 12.7 % (11.6-15.6); WHITE BLOOD COUNT 10.6 K/mm3 (4.0-10.0)
[2021-02-15 09:13] LABS: BLOOD UREA NITROGEN 5.2 mg/dL (7-18); CALCIUM 8.2 mg/dL (8.5-10.1)
[2021-02-15 09:17] LABS: CREATININE 0.4 mg/dL (0.55-1.3)
[2021-02-15] MEDS ORDERED: SODIUM CHLORIDE 1,000 ML IV SCH (10:45)
[2021-02-15] MEDS ORDERED: CEFTRIAXONE 1,000 MG in DEXTROSE 5%-WATER - 50 ML IVPB SCH (10:45)
[2021-02-15] MEDS ORDERED: CEFTRIAXONE 1 GM in DEXTROSE 5%-WATER - 50 ML IVPB SCH (10:51)
[2021-02-15] MEDS ORDERED: PT OWN MED DRAWER 7, Y5N ONE (14:08)
[2021-02-15 15:46] VITALS: BP 122/72; PULSE 94; TEMP 98.3
== END 2021-02-15 18:37 | disposition home or self-care (01) | DRG 566 ==
LOC: JER 05:38 → JERBED 10:53 → J8W 17:59
PROVIDERS: ADMIT Internal Medicine; ATTEND Internal Medicine
PROC: 0T778DZ Dilation of Left Ureter with Intraluminal Device, Via Natural or Artificial Opening Endoscopic (ICD-10-PCS; principal; 2021-02-14 15:03)
DX: O23.02 Infections of kidney in pregnancy, second trimester (principal); N13.6 Pyonephrosis; Z3A.20 20 weeks gestation of pregnancy
CPT/HCPCS: 36415; 59025; 72195-TC; 76000-TC-FY; 76775-TC; 80048; 80053; 81003; 84703; 85025; 85610; 85730; 86850; 86900; 86901; 87086; 94760; 99285-25; C9803; J0131; U0003; U0005

== ENCOUNTER 2021-04-02 08:42 | Inpatient (IN) | payer OTHER ==
[2021-04-02 09:01] VITALS: BMI 29.9
[2021-04-02] MEDS ORDERED: SODIUM CHLORIDE 0.9% 500 ML INFUS.BAG IV ONE (11:12)
[2021-04-02] MEDS ORDERED: ACETAMINOPHEN 1000 MG/100 ML VIAL (NON FORMULARY) IVPB ONE (11:12)
[2021-04-02] MEDS ORDERED: ONDANSETRON 4 MG/2 ML VIAL IVPUSH ONE (11:12)
[2021-04-02] MEDS ORDERED: ACETAMINOPHEN INJECTION 100 ML IVPB ONE (11:22)
[2021-04-02] MEDS ORDERED: ONDANSETRON 4 MG/2 ML VIAL ONE (11:23)
[2021-04-02 11:57] LABS: BASO % 0.2 % (0-2.0); EOS % 0.1 % (0-4.5); HEMATOCRIT 32.4 % (32.4-45.2); LYMPH % 7.6 % (8-40); MCH 31.6 pg (25.7-33.7); MEAN CELL VOLUME 92.8 fl (80-96); MONO % 7.9 % (3.8-10.2); NEUT % 84.2 % (42.8-82.8); PLATELET COUNT 314 10^3/uL (134-434); RBC 3.49 M/mm3 (3.60-5.2); RDW 13.6 % (11.6-15.6); WHITE BLOOD COUNT 18.2 K/mm3 (4.0-10.0)
[2021-04-02 12:42] LABS: EPI CELLS 26 /uL (0-25.1); HYALINE CASTS 0 /uL (0-3.1); URINE APPEARANCE CLOUDY; URINE BACTERIA >9,000 /uL (0-1359); URINE BILIRUBIN NEGATIVE (NEGATIVE); URINE COLOR YELLOW; URINE GLUCOSE (UA) NEGATIVE (NEGATIVE); URINE KETONE NEGATIVE (NEGATIVE); URINE LEUK ESTERASE 3+ (NEGATIVE); URINE NITRITE POSITIVE (NEGATIVE); URINE PROTEIN 1+ (NEGATIVE); URINE RBC 74 /uL (0-23.9); URINE UROBILINOGEN 0.2 mg/dL (0.2-1.0); URINE WBC 1022 /uL (0-25.8)
[2021-04-02 13:57] LABS: CHLORIDE 106 mmol/L (98-107); SODIUM 137 mmol/L (136-145)
[2021-04-02 13:59] LABS: ALBUMIN 2.3 g/dl (3.4-5.0); CALCIUM 7.9 mg/dL (8.5-10.1); CO2 21 mmol/L (21-32); GLUCOSE,RANDOM 87 mg/dL (74-106)
[2021-04-02 14:03] LABS: BILIRUBIN,TOTAL 0.4 mg/dL (0.2-1); CREATININE 0.4 mg/dL (0.55-1.3); SGOT/AST 8 U/L (15-37); SGPT/ALT 16 U/L (13-61)
[2021-04-02 14:05] LABS: ALK PHOS 75 U/L (45-117); TOT PROT 6.5 g/dl (6.4-8.2)
[2021-04-02 14:09] LABS: ANION GAP 10 MMOL/L (8-16)
[2021-04-02] MEDS ORDERED: CEFTRIAXONE 1,000 MG in DEXTROSE 5%-WATER - 50 ML IVPB ONE (14:20)
[2021-04-02] MEDS ORDERED: POTASSIUM CHLORIDE TABS 20 MEQ TABLET.ER (FP) PO ONE ×2 (14:21→15:50)
[2021-04-02] MEDS ORDERED: CEFTRIAXONE 1 GM/50 ML BAG ONE (15:50)
[2021-04-02] MEDS ORDERED: ACETAMINOPHEN 325 MG TABLET (FP) PO PRN (17:11)
[2021-04-02 18:06] VITALS: BP 122/68; PULSE 104; TEMP 100.7
== END 2021-04-02 18:40 | disposition short-term general hospital (02) | DRG 566 ==
LOC: JER 08:42 → JERBED 15:13
PROVIDERS: ADMIT Obstetrics & Gynecology; ATTEND Obstetrics & Gynecology
DX: O23.02 Infections of kidney in pregnancy, second trimester (principal); Z3A.26 26 weeks gestation of pregnancy; N12 Tubulo-interstitial nephritis, not specified as acute or chronic; O26.892 Other specified pregnancy related conditions, second trimester; N13.2 Hydronephrosis with renal and ureteral calculous obstruction; R50.9 Fever, unspecified; R10.9 Unspecified abdominal pain; R11.0 Nausea
CPT/HCPCS: 36415; 59025; 76775-TC; 76801-TC; 80053; 81003; 85025; 87086; 87186; 99285-25; C9803; J0131; U0003; U0005

== ENCOUNTER 2021-07-02 11:30 | Inpatient (IN) | payer OTHER ==
[2021-07-02 13:04] VITALS: BMI 31.4
[2021-07-02] MEDS ORDERED: DINOPROSTONE 10 MG VAGINAL SUPPOSITORY VG ONE (13:55)
[2021-07-02] MEDS ORDERED: BUTORPHANOL TARTRATE 1 MG/ML VIAL IVPUSH PRN (13:58)
[2021-07-02] MEDS ORDERED: PROMETHAZINE HCL 25 MG/1 ML VIAL IVPUSH ONE (13:58)
[2021-07-02] MEDS ORDERED: ceFAZolin 2 GRAM PREMIX BAG IVPB SCH (15:00)
[2021-07-02] MEDS ORDERED: ceFAZolin SODIUM 1 GM VIAL ONE (15:21)
[2021-07-02] MEDS: CEFAZOLIN 2 GM in SODIUM CHLORIDE 100 ML IVPB SCH ×2 (15:30→21:00)
[2021-07-02] MEDS: DEXTROSE 5%-LACTATED RINGERS 1,000 ML IV SCH (15:30)
[2021-07-02] MEDS ORDERED: OXYTOCIN 30 UNITS in 0.9% NS 30 UNIT/500 ML INFUS.BAG IVPB ONE (21:52)
[2021-07-03] MEDS ORDERED: ELECTROLYTE-148 SOLN 1,000 ML IV SCH ×4 (00:15→07:45)
[2021-07-03] MEDS ORDERED: ceFAZolin SODIUM 1 GM VIAL ONE ×3 (02:59→09:39)
[2021-07-03] MEDS: CEFAZOLIN 2 GM in SODIUM CHLORIDE 100 ML IVPB SCH ×4 (03:00→20:42)
[2021-07-03] MEDS ORDERED: OXYTOCIN 30 UNITS in 0.9% NS 30 UNIT/500 ML INFUS.BAG IVPB SCH (03:30)
[2021-07-03] MEDS ORDERED: FENTANYL/BUPIVACAINE/NS/PF - PCEA - 50 ML DISP.SYRIN EP ONE (07:32)
[2021-07-03] MEDS ORDERED: PCA PUMP NR ONE (07:32)
[2021-07-03] MEDS ORDERED: BUPIVACAINE HCL/PF 0.25% (2.5MG/ML) 10 ML VIAL ONE (07:47)
[2021-07-03] MEDS ORDERED: OXYTOCIN 20 UNITS in 0.9% NS 20 UNIT/1,000 ML INFUS.BAG IV ONE (13:33)
[2021-07-03] MEDS ORDERED: LIDOCAINE HCL 1% PRESERVATIVE FREE - 30ML VIAL ONE (13:34)
[2021-07-03] MEDS ORDERED: METHYLERGONOVINE MALEATE 0.2 MG/1 ML AMP IM PRN (13:53)
[2021-07-03] MEDS ORDERED: BISACODYL 10 MG SUPP.RECT RC PRN (13:53)
[2021-07-03] MEDS ORDERED: WITCH HAZEL 50% (TUCKS) 40 PAD/JAR PAD TP PRN (13:53)
[2021-07-03] MEDS ORDERED: oxyCODONE HCL 5 MG TABLET PO PRN (13:53)
[2021-07-03] MEDS ORDERED: BENZOCAINE 20% 57 GM BOTTLE TP PRN (13:53)
[2021-07-03] MEDS ORDERED: BENZOCAINE 28 GM HEMORRHOIDAL OINTMENT TP PRN (13:53)
[2021-07-03] MEDS ORDERED: OXYTOCIN 20 UNITS in 0.9% NS 20 UNIT/1,000 ML INFUS.BAG IV SCH (14:00)
[2021-07-03] MEDS: DEXTROSE 5%-LACTATED RINGERS 1,000 ML IV SCH (14:00)
[2021-07-03 14:36] LABS: CORD BASE EXCESS -3.8 mmol/L (0-2); CORD HCO3 21.5 mmHg (20-29); CORD PCO2 39.8 mmHg (30-78); CORD pH 7.35 (7.14-7.44)
[2021-07-03 14:39] LABS: CORD PCO2 53.6 mmHg (30-78); CORD pH 7.303 (7.14-7.44)
[2021-07-03] MEDS: IBUPROFEN 600 MG TABLET (FP) PO PRN (18:26)
[2021-07-04] MEDS: CEFAZOLIN 2 GM in SODIUM CHLORIDE 100 ML IVPB SCH ×2 (03:09→10:36)
[2021-07-04] MEDS: IBUPROFEN 600 MG TABLET (FP) PO PRN ×2 (03:10→09:15)
[2021-07-04] MEDS: ACETAMINOPHEN 325 MG TABLET (FP) PO PRN ×2 (03:11→15:08)
[2021-07-04 07:27] LABS: BASO % 0.4 % (0-2.0); EOS % 0.8 % (0-4.5); HEMATOCRIT 30.2 % (32.4-45.2); HEMOGLOBIN 10.2 GM/dL (10.7-15.3); LYMPH % 20.1 % (8-40); MCH 30.9 pg (25.7-33.7); MCHC 33.9 g/dl (32.0-36.0); MEAN CELL VOLUME 91.1 fl (80-96); MEAN PLT VOLUME 10.1 fl (7.5-11.1); MONO % 5.8 % (3.8-10.2); NEUT % 72.9 % (42.8-82.8); PLATELET COUNT 252 10^3/uL (134-434); RBC 3.32 M/mm3 (3.60-5.2); RDW 14.7 % (11.6-15.6); WHITE BLOOD COUNT 13.5 K/mm3 (4.0-10.0)
[2021-07-04] MEDS ORDERED: SENNOSIDES/DOCUSATE COMBO (SENNA PLUS) TABLET (UD) PO PRN (22:00)
[2021-07-05 10:50] VITALS: BP 129/84; PULSE 91; TEMP 98.1
== END 2021-07-05 13:55 | disposition home or self-care (01) | DRG 560 ==
LOC: JLDR 11:30 → J3W 07-03 15:40
PROVIDERS: ADMIT Obstetrics & Gynecology; ATTEND Obstetrics & Gynecology
PROC: 10E0XZZ Delivery of Products of Conception, External Approach (ICD-10-PCS; principal; 2021-07-03)
DX: O69.81X0 Labor and delivery complicated by cord around neck, without compression, not applicable or unspecified (principal); O75.89 Other specified complications of labor and delivery; N13.2 Hydronephrosis with renal and ureteral calculous obstruction; Z3A.39 39 weeks gestation of pregnancy; Z37.0 Single live birth
CPT/HCPCS: 36415; 36600; 59409; 80048; 82803; 85025; 85610; 85730; 86780; 86850; 86900; 86901; 87086; C9803; U0003; U0005

== ENCOUNTER 2021-08-07 04:28 | Day surgery (SDC) | payer OTHER ==
[2021-08-05 16:35] VITALS: BMI 29.8
[2021-08-07] MEDS ORDERED: PROPOFOL 20 ML ONE (11:41)
[2021-08-07] MEDS ORDERED: MIDAZOLAM HCL 2 MG/2 ML SINGLE DOSE VIAL ONE (11:41)
[2021-08-07] MEDS ORDERED: oxyCODONE HCL 5 MG TABLET PO PRN (11:50)
[2021-08-07] MEDS ORDERED: ONDANSETRON 4 MG/2 ML VIAL IVPUSH PRN (11:50)
[2021-08-07] MEDS ORDERED: ceFAZolin SODIUM 1 GM VIAL IVPB ONE (12:05)
[2021-08-07] MEDS ORDERED: FUROSEMIDE 40 MG/4 ML INJECTABLE VIAL ONE (12:25)
[2021-08-07 16:42] VITALS: BP 135/74; PULSE 65; TEMP 97.2
== END 2021-08-07 15:30 | disposition home or self-care (01) ==
LOC: JASU-SURG 04:28
PROVIDERS: ATTEND Urology
PROC: BT1FYZZ Fluoroscopy of Left Kidney, Ureter and Bladder using Other Contrast (ICD-10-PCS; 2021-08-07)
PROC: 0TCB8ZZ Extirpation of Matter from Bladder, Via Natural or Artificial Opening Endoscopic (ICD-10-PCS; principal; 2021-08-07 12:00)
PROC: 0TC48ZZ Extirpation of Matter from Left Kidney Pelvis, Via Natural or Artificial Opening Endoscopic (ICD-10-PCS; 2021-08-07 12:00)
PROC: 0TC78ZZ Extirpation of Matter from Left Ureter, Via Natural or Artificial Opening Endoscopic (ICD-10-PCS; 2021-08-07 12:00)
PROC: 0T778DZ Dilation of Left Ureter with Intraluminal Device, Via Natural or Artificial Opening Endoscopic (ICD-10-PCS; 2021-08-07 12:00)
DX: N20.0 Calculus of kidney (principal); N21.0 Calculus in bladder
CPT/HCPCS: 36415; 76000-TC-FY; 81025; 82360; 88300-TC; 94760

== ENCOUNTER 2022-09-30 07:49 | Emergency (ER) | payer OTHER ==
[2022-09-30 08:03] VITALS: BMI 23.9
[2022-09-30] MEDS ORDERED: SODIUM CHLORIDE 1,000 ML IV STA ×2 (08:13→12:04)
[2022-09-30] MEDS ORDERED: ACETAMINOPHEN 1000 MG/100 ML BAG IVPB ONE (08:13)
[2022-09-30] MEDS ORDERED: ACETAMINOPHEN INJECTION 100 ML IVPB ONE (08:35)
[2022-09-30 08:42] LABS: BASO % 0.9 % (0-2.0); EOS % 1.3 % (0-4.5); HEMATOCRIT 41.4 % (32.4-45.2); HEMOGLOBIN 13.7 GM/dL (10.7-15.3); LYMPH % 28.1 % (8-40); MCH 30.9 pg (25.7-33.7); MCHC 33.2 g/dl (32.0-36.0); MEAN PLT VOLUME 9.2 fl (7.5-11.1); NEUT % 64.7 % (42.8-82.8); PLATELET COUNT 386 10^3/uL (134-434); RBC 4.45 M/mm3 (3.60-5.2); RDW 13.5 % (11.6-15.6); WHITE BLOOD COUNT 8.5 K/mm3 (4.0-10.0)
[2022-09-30 09:02] LABS: CHLORIDE 112 mmol/L (98-107); SODIUM 138 mmol/L (136-145)
[2022-09-30 09:04] LABS: ALBUMIN 3.8 g/dl (3.4-5.0); CALCIUM 8.9 mg/dL (8.5-10.1); CO2 24 mmol/L (21-32); GLUCOSE,RANDOM 102 mg/dL (74-106)
[2022-09-30] MEDS ORDERED: ONDANSETRON 4 MG/2 ML VIAL IVPUSH ONE (09:06)
[2022-09-30 09:07] LABS: CREATININE 0.7 mg/dL (0.55-1.3); SGOT/AST 44 U/L (15-37); SGPT/ALT 17 U/L (13-61)
[2022-09-30] MEDS ORDERED: morphine CARPU-JECT 2 MG/1 ML DISP.SYRIN IVPUSH ONE (09:07)
[2022-09-30 09:09] LABS: BILIRUBIN,TOTAL 0.6 mg/dL (0.2-1); TOT PROT 8.2 g/dl (6.4-8.2)
[2022-09-30 09:10] LABS: ALK PHOS 58 U/L (45-117)
[2022-09-30 09:14] LABS: ANION GAP 2 MMOL/L (8-16)
[2022-09-30] MEDS ORDERED: ONDANSETRON 4 MG/2 ML VIAL ONE (09:52)
[2022-09-30 11:05] LABS: EPI CELLS 13 /uL (0-25.1); HCG,QUALITATIVE URINE Negative; HYALINE CASTS 3 /uL (0-3.1); PH,URINE 5.5 (5.0-8.0); URINE APPEARANCE CLEAR; URINE BACTERIA 138 /uL (0-1359); URINE BILIRUBIN NEGATIVE (NEGATIVE); URINE COLOR YELLOW; URINE GLUCOSE (UA) NEGATIVE (NEGATIVE); URINE KETONE NEGATIVE (NEGATIVE); URINE LEUK ESTERASE NEGATIVE (NEGATIVE); URINE NITRITE NEGATIVE (NEGATIVE); URINE PROTEIN TRACE (NEGATIVE); URINE RBC 11 /uL (0-23.9); URINE UROBILINOGEN 0.2 mg/dL (0.2-1.0)
[2022-09-30] MEDS ORDERED: KETOROLAC TROMETHAMINE 30 MG/1 ML VIAL IVPUSH ONE (12:04)
[2022-09-30 12:11] LABS: URINE WBC 117.4 /uL (0-25.8)
[2022-09-30] MEDS ORDERED: KETOROLAC TROMETHAMINE 30 MG/1 ML VIAL ONE (12:18)
[2022-09-30] MEDS ORDERED: TAMSULOSIN HCL 0.4 MG CAP PO ONE (13:21)
[2022-09-30] MEDS ORDERED: CEFTRIAXONE 1 GM in DEXTROSE 5%-WATER - 100 ML IVPB ONE (13:21)
[2022-09-30] MEDS ORDERED: TAMSULOSIN HCL 0.4 MG CAP ONE (13:47)
[2022-09-30] MEDS ORDERED: CEFTRIAXONE 1 GM/50 ML BAG ONE (13:48)
[2022-09-30 14:44] VITALS: BP 114/74; PULSE 66; RESP 18; TEMP 97.9
== END 2022-09-30 14:56 | disposition home or self-care (01) ==
LOC: JER 07:49
PROC: 3E033GC Introduction of Other Therapeutic Substance into Peripheral Vein, Percutaneous Approach (ICD-10-PCS; principal; 2022-09-30)
DX: N20.0 Calculus of kidney (principal)
CPT/HCPCS: 36415; 74176-TC; 80053; 81003; 84132; 84703; 85025; 87086; 99285-25

== ENCOUNTER 2022-10-22 04:29 | Day surgery (SDC) | payer OTHER ==
[2022-10-15 11:06] VITALS: BMI 23.9
[2022-10-22] MEDS ORDERED: ONDANSETRON 4 MG/2 ML VIAL IVPUSH PRN ×2 (11:03→12:13)
[2022-10-22] MEDS ORDERED: ACETAMINOPHEN 1000 MG/100 ML BAG IVPB ONE (11:04)
[2022-10-22] MEDS ORDERED: LACTATED RINGERS SOLUTION 1,000 ML IV SCH (11:15)
[2022-10-22] MEDS ORDERED: ceFAZolin SODIUM 1 GM VIAL IVPB ONE (11:42)
[2022-10-22] MEDS ORDERED: MIDAZOLAM HCL 2 MG/2 ML SINGLE DOSE VIAL ONE (11:44)
[2022-10-22] MEDS ORDERED: oxyCODONE HCL 5 MG TABLET PO PRN (12:13)
[2022-10-22] MEDS ORDERED: FENTANYL CITRATE/PF 50 MCG/ML VIAL IVPUSH PRN ×3 (12:23→12:26)
[2022-10-22] MEDS ORDERED: ACETAMINOPHEN INJECTION 100 ML IVPB ONE (12:27)
[2022-10-22] MEDS ORDERED: oxyCODONE HCL 5 MG TABLET ONE (13:59)
[2022-10-22 14:18] VITALS: RESP 20
[2022-10-22 15:09] VITALS: BP 127/74; PULSE 68; TEMP 98.2
== END 2022-10-22 15:00 | disposition home or self-care (01) ==
LOC: JASU-SURG 04:29
PROVIDERS: ATTEND Urology
PROC: 0T778DZ Dilation of Left Ureter with Intraluminal Device, Via Natural or Artificial Opening Endoscopic (ICD-10-PCS; principal; 2022-10-22 12:00)
DX: N13.2 Hydronephrosis with renal and ureteral calculous obstruction (principal)
CPT/HCPCS: 76000-TC-FY; 81025; 94760; C2617

== ENCOUNTER 2023-07-27 08:50 | Emergency (ER) | payer OTHER ==
[2023-07-27 09:01] VITALS: BP 128/83; PULSE 66; RESP 18; TEMP 97.9; BMI 24.7
[2023-07-27] MEDS ORDERED: ACETAMINOPHEN 500 MG TABLET (FP) PO ONE (10:02)
[2023-07-27] MEDS ORDERED: ACETAMINOPHEN 500 MG TABLET (FP) ONE (10:14)
[2023-07-27] MEDS ORDERED: LIDOCAINE 4% PATCH TP ONE ×2 (12:07→12:17)
[2023-07-27] MEDS ORDERED: METHOCARBAMOL 500 MG TABLET PO ONE (12:07)
[2023-07-27] MEDS ORDERED: KETOROLAC TROMETHAMINE 30 MG/1 ML VIAL IM ONE (12:07)
[2023-07-27] MEDS ORDERED: METHOCARBAMOL 500 MG TABLET ONE (12:17)
[2023-07-27] MEDS ORDERED: KETOROLAC TROMETHAMINE 30 MG/1 ML VIAL ONE (12:17)
== END 2023-07-27 12:40 | disposition home or self-care (01) ==
LOC: JER 08:50
PROC: 3E0233Z Introduction of Anti-inflammatory into Muscle, Percutaneous Approach (ICD-10-PCS; principal; 2023-07-27)
DX: M54.2 Cervicalgia (principal); M54.9 Dorsalgia, unspecified; M62.838 Other muscle spasm; V43.52XA Car driver injured in collision with other type car in traffic accident, initial encounter; Y92.410 Unspecified street and highway as the place of occurrence of the external cause
CPT/HCPCS: 70450-TC; 72125-TC; 72128-TC; 72131-TC; 84703; 99284-25

== ENCOUNTER 2024-03-28 16:01 | Emergency (ER) | payer OTHER ==
[2024-03-28 16:14] VITALS: BP 110/78; PULSE 61; RESP 18; TEMP 99; BMI 24.7
[2024-03-28 17:30] LABS: BASO % 1.4 % (0-2.0); EOS % 0.9 % (0-4.5); HEMATOCRIT 36.9 % (32.4-45.2); HEMOGLOBIN 12.6 GM/dL (10.7-15.3); LYMPH % 39.4 % (8-40); MCH 32.6 pg (25.7-33.7); MCHC 34.1 g/dl (32.0-36.0); MEAN CELL VOLUME 95.5 fl (80-96); MEAN PLT VOLUME 8.9 fl (7.5-11.1); MONO % 4.5 % (3.8-10.2); NEUT % 53.8 % (42.8-82.8); PLATELET COUNT 308 10^3/uL (134-434); RBC 3.87 M/mm3 (3.60-5.2); RDW 12.6 % (11.6-15.6); WHITE BLOOD COUNT 9.3 K/mm3 (4.0-10.0)
[2024-03-28] MEDS ORDERED: ACETAMINOPHEN INJECTION 100 ML ONE (17:56)
[2024-03-28 17:59] LABS: CHLORIDE 105 mmol/L (98-107); POTASSIUM 3.7 mmol/L (3.5-5.1); SODIUM 140 mmol/L (136-145)
[2024-03-28 18:00] LABS: CALCIUM 9.1 mg/dL (8.5-10.1)
[2024-03-28] MEDS: ACETAMINOPHEN 1000 MG/100 ML BAG IVPB ONE (18:00)
[2024-03-28 18:02] LABS: ALBUMIN 3.8 g/dl (3.4-5.0); ANION GAP 8 mmol/L (4-13); BLOOD UREA NITROGEN 15.2 mg/dL (7-18); CO2 28 mmol/L (21-32); GLUCOSE,RANDOM 88 mg/dL (74-106)
[2024-03-28 18:04] LABS: CREATININE 0.7 mg/dL (0.55-1.3); SGOT/AST 11 U/L (15-37); SGPT/ALT 15 U/L (13-61)
[2024-03-28 18:06] LABS: BILIRUBIN,TOTAL 0.2 mg/dL (0.2-1)
[2024-03-28 18:07] LABS: TOT PROT 7.6 g/dl (6.4-8.2)
[2024-03-28 18:08] LABS: ALK PHOS 60 U/L (45-117)
[2024-03-28 18:56] LABS: HIV INTERPRETATION NEGATIVE (NEGATIVE)
== END 2024-03-28 18:47 | disposition home or self-care (01) ==
LOC: JER 16:01
PROC: 3E033NZ Introduction of Analgesics, Hypnotics, Sedatives into Peripheral Vein, Percutaneous Approach (ICD-10-PCS; principal; 2024-03-28)
DX: O20.9 Hemorrhage in early pregnancy, unspecified (principal); O26.899 Other specified pregnancy related conditions, unspecified trimester; R10.30 Lower abdominal pain, unspecified; Z3A.00 Weeks of gestation of pregnancy not specified
CPT/HCPCS: 36415; 80053; 84702; 84703; 85025; 85027; 86803; 86850; 86900; 86901; 87389; 99284-25; J0131

== ENCOUNTER 2024-12-01 12:30 | Emergency (ER) | payer OTHER ==
[2024-12-01 12:37] VITALS: BP 115/70; PULSE 77; RESP 18; TEMP 98.4; BMI 24.5
[2024-12-01] MEDS ORDERED: ACETAMINOPHEN INJECTION 100 ML ONE (14:41)
[2024-12-01] MEDS: SODIUM CHLORIDE 0.9% 500 ML INFUS.BAG IV ONE (14:46)
[2024-12-01] MEDS: ACETAMINOPHEN 1000 MG/100 ML BAG IVPB ONE (14:47)
[2024-12-01 14:54] LABS: ABSOLUTE IMMATURE GRANULOCYTES 0.08 x10^3/uL (0.0-0.031); BASOPHILS # 0.06 x10^3/uL (0.01-0.08); EOSINOPHIL % 1.1 % (0.7-5.8); EOSINOPHILS # 0.12 x10^3/uL (0.04-0.36); HEMATOCRIT 37.9 % (34.1-44.9); HEMOGLOBIN 12.7 g/dL (11.2-15.7); MCHC 33.5 g/dl (32.2-35.5); MEAN CELL VOLUME 97.2 fl (79.4-94.8); MEAN PLT VOLUME 10.6 fl (9.4-12.3); MONOCYTE # 0.91 x10^3/uL (0.24-0.86); MONOCYTE % 8.4 % (4.7-12.5); PLATELET COUNT 295 x10^3/uL (182-369); RDW 12.8 % (12.1-16.8)
[2024-12-01 14:56] LABS: EPI CELLS 24 /uL (0-25.1); HYALINE CASTS 0 /uL (0-3.1); PH,URINE 5.5 (5.0-8.0); URINE APPEARANCE CLEAR; URINE BACTERIA 3993 /uL (0-1359); URINE BILIRUBIN NEGATIVE (NEGATIVE); URINE COLOR YELLOW; URINE GLUCOSE (UA) NEGATIVE (NEGATIVE); URINE KETONE TRACE (NEGATIVE); URINE LEUK ESTERASE TRACE (NEGATIVE); URINE NITRITE NEGATIVE (NEGATIVE); URINE PROTEIN NEGATIVE (NEGATIVE); URINE RBC 30 /uL (0-23.9); URINE UROBILINOGEN 0.2 mg/dL (0.2-1.0); URINE WBC 81 /uL (0-25.8)
[2024-12-01 15:35] LABS: CHLORIDE 108 mmol/L (98-107); POTASSIUM 4.1 mmol/L (3.5-5.1); SODIUM 140 mmol/L (136-145)
[2024-12-01 15:37] LABS: CALCIUM 9.2 mg/dL (8.5-10.1)
[2024-12-01 15:38] LABS: ALBUMIN 3.5 g/dl (3.4-5.0); ANION GAP 7 mmol/L (4-13); BLOOD UREA NITROGEN 14.8 mg/dL (7-18); CO2 25 mmol/L (21-32); GLUCOSE,RANDOM 91 mg/dL (74-106)
[2024-12-01 15:41] LABS: CREATININE 0.5 mg/dL (0.55-1.3); SGOT/AST 23 U/L (15-37); SGPT/ALT 22 U/L (13-61)
[2024-12-01 15:42] LABS: BILIRUBIN,TOTAL 0.4 mg/dL (0.2-1); TOT PROT 7.2 g/dl (6.4-8.2)
[2024-12-01 15:44] LABS: ALK PHOS 51 U/L (45-117)
[2024-12-01 16:09] LABS: HCV DIAGNOSTIC IN-HOUSE W/RFLX NON-REACTIVE (NONREACTIVE)
[2024-12-01 16:10] LABS: HIV INTERPRETATION NEGATIVE (NEGATIVE)
== END 2024-12-01 17:32 | disposition home or self-care (01) ==
LOC: JER 12:30
PROC: 3E033NZ Introduction of Analgesics, Hypnotics, Sedatives into Peripheral Vein, Percutaneous Approach (ICD-10-PCS; principal; 2024-12-01)
DX: S93.401A Sprain of unspecified ligament of right ankle, initial encounter (principal); N13.39 Other hydronephrosis; K59.00 Constipation, unspecified; R35.0 Frequency of micturition; R39.15 Urgency of urination; R10.33 Periumbilical pain; X50.1XXA Overexertion from prolonged static or awkward postures, initial encounter; Y93.B9 Activity, other involving muscle strengthening exercises
CPT/HCPCS: 0241U-QW; 36415; 73610-TC-RT-FY; 73630-TC-RT-FY; 74177-TC; 80053; 81003; 84702; 85025; 86803; 87086; 87186; 87389; 99285-25; J0131; Q9967

== ENCOUNTER 2025-03-30 11:07 | Observation (INO) | payer OTHER ==
[2025-03-30 11:21] VITALS: BMI 25.6
[2025-03-30] MEDS ORDERED: ACETAMINOPHEN INJECTION 100 ML ONE (12:34)
[2025-03-30] MEDS: ACETAMINOPHEN 1000 MG/100 ML BAG IVPB ONE (12:49)
[2025-03-30] MEDS: SODIUM CHLORIDE 0.9% 500 ML INFUS.BAG IV ONE (12:49)
[2025-03-30] MEDS ORDERED: ONDANSETRON 4 MG/2 ML VIAL ONE (12:51)
[2025-03-30] MEDS: ONDANSETRON 4 MG/2 ML VIAL IVPUSH ONE (12:55)
[2025-03-30 13:00] LABS: ABSOLUTE IMMATURE GRANULOCYTES 0.07 x10^3/uL (0.0-0.031); BASOPHILS # 0.07 x10^3/uL (0.01-0.08); EOSINOPHIL % 0.2 % (0.7-5.8); EOSINOPHILS # 0.02 x10^3/uL (0.04-0.36); MCHC 33.3 g/dl (32.2-35.5); MEAN CELL VOLUME 96.6 fl (79.4-94.8); MEAN PLT VOLUME 10.4 fl (9.4-12.3); MONOCYTE # 0.67 x10^3/uL (0.24-0.86); MONOCYTE % 5.3 % (4.7-12.5); RDW 11.9 % (12.1-16.8)
[2025-03-30 13:03] LABS: EPI CELLS 18 /uL (0-25.1); HYALINE CASTS 17 /uL (0-3.1); URINE APPEARANCE CLOUDY; URINE BACTERIA >9,000 /uL (0-1359); URINE BILIRUBIN NEGATIVE (NEGATIVE); URINE COLOR YELLOW; URINE GLUCOSE (UA) NEGATIVE (NEGATIVE); URINE KETONE NEGATIVE (NEGATIVE); URINE LEUK ESTERASE 1+ (NEGATIVE); URINE NITRITE NEGATIVE (NEGATIVE); URINE PROTEIN TRACE (NEGATIVE); URINE RBC 9 /uL (0-23.9); URINE UROBILINOGEN 0.2 mg/dL (0.2-1.0); URINE WBC 148 /uL (0-25.8)
[2025-03-30 13:21] LABS: GLUCOSE,RANDOM 102.0 mg/dL (74-106); TOT PROT 7.9 g/dl (6.4-8.2)
[2025-03-30 13:22] LABS: CO2 18.0 mmol/L (21-32)
[2025-03-30 13:23] LABS: ALK PHOS 49.0 U/L (40-150)
[2025-03-30 13:26] LABS: CREATININE 0.46 mg/dL (0.55-1.3); SGOT/AST 20.0 U/L (5-34); SGPT/ALT 15.0 U/L (0-55)
[2025-03-30] MEDS ORDERED: CEFTRIAXONE 1 GM/50 ML BAG ONE (13:58)
[2025-03-30] MEDS: CEFTRIAXONE 1 GM in DEXTROSE 5%-WATER - 100 ML IVPB ONE (14:36)
[2025-03-30] MEDS ORDERED: ONDANSETRON 4 MG/2 ML VIAL IVPUSH PRN (17:42)
[2025-03-30] MEDS: SODIUM CHLORIDE 1,000 ML IV SCH (18:00)
[2025-03-30] MEDS: ACETAMINOPHEN 325 MG TABLET (FP) PO PRN (20:56)
[2025-03-31 04:03] VITALS: RESP 18
[2025-03-31] MEDS: CEFTRIAXONE 1 GM in DEXTROSE 5%-WATER - 50 ML IVPB SCH (09:11)
[2025-03-31 09:38] LABS: MCHC 33.1 g/dl (32.2-35.5); MEAN CELL VOLUME 97.2 fl (79.4-94.8); MEAN PLT VOLUME 10.5 fl (9.4-12.3); RDW 12.0 % (12.1-16.8)
[2025-03-31] MEDS ORDERED: PRENATAL VITAMINS W/ FOLIC ACID TABLET (FP) PO SCH (10:00)
[2025-03-31 10:09] VITALS: BP 98/68; PULSE 64; TEMP 99.3
[2025-03-31 10:09] LABS: GLUCOSE,RANDOM 98.0 mg/dL (74-106)
[2025-03-31 10:11] LABS: CO2 20.0 mmol/L (21-32)
[2025-03-31 10:15] LABS: CREATININE 0.42 mg/dL (0.55-1.3)
== END 2025-03-31 12:15 | disposition home or self-care (01) ==
LOC: JER 11:07 → JERBED 13:48 → INTOOBSV 13:48 → J6S 20:43
PROVIDERS: ADMIT Student in an Organized Health Care Education/Training Program; ATTEND Registered Nurse
PROC: 3E03329 Introduction of Other Anti-infective into Peripheral Vein, Percutaneous Approach (ICD-10-PCS; principal; 2025-03-30)
PROC: 3E033NZ Introduction of Analgesics, Hypnotics, Sedatives into Peripheral Vein, Percutaneous Approach (ICD-10-PCS; 2025-03-30)
PROC: 3E0337Z Introduction of Electrolytic and Water Balance Substance into Peripheral Vein, Percutaneous Approach (ICD-10-PCS; 2025-03-30)
DX: N39.0 Urinary tract infection, site not specified (principal); N13.2 Hydronephrosis with renal and ureteral calculous obstruction; O23.01 Infections of kidney in pregnancy, first trimester; Z87.440 Personal history of urinary (tract) infections; R10.9 Unspecified abdominal pain
CPT/HCPCS: 36415; 76775-TC; 76817-TC; 80048; 80053; 81003; 83735; 84100; 84702; 84703; 85025; 85027; 86850; 86900; 86901; 87086; 96361; 96365; 96366; 96375; 99285-25; G0378